=== PATIENT | female | born 1955 | race Caucasian/White ===

== ENCOUNTER 2023-04-24 09:30 | Outpatient (OUT) | payer MEDICARE, SELFPAY | END 2023-04-24 09:31 | disposition home or self-care (01) | LOC: LAB 09:33 | PROVIDERS: Family Provider Optometrist; PCP Family Medicine | DX: N39.0 Urinary tract infection, site not specified (principal) | CPT/HCPCS: 87086 ==

== ENCOUNTER 2023-09-22 14:12 | Outpatient (OUT) | payer MEDICARE, SELFPAY | END 2023-09-22 14:13 | disposition home or self-care (01) | LOC: LAB 14:17 | PROVIDERS: Family Provider Optometrist; PCP Family Medicine | DX: N39.0 Urinary tract infection, site not specified (principal) | CPT/HCPCS: 87086; 87150; 87186 ==

== ENCOUNTER 2023-10-26 09:43 | Outpatient (OUT) | payer MEDICARE, SELFPAY ==
--- OUTSIDE RECORDS SUMMARY | 2023-10-26 09:57 | XMS_ITS | CCD ---
Author Organization [facility] Care Team Providers Care Building Construction Estimator Name Role Phone GloriaZackYuridia Attending Provider ANDRES SIMMS Primary Care Physician Marie Galvan Unavailable Calderon Ortiz Unavailable NILESH, DR GEE Barnard Admitting Unavailabl e SIMMS ., DR ANDRES Dennis Primary Care Unavailable NILESH, DR GEE Barnard Attending Unavailabl e ZIEBJORGE, DR MIHAI Izaguirre Consulting Unavailable GRECHNY .SANKET Consulting Unavailabl e SIMMS ., DR ANDRES Dennis Admitting Unavailable SIMMS ., DR ANDRES Dennis Attending Unavailable SIMMS ., DR ANDRES Dennis Consulting Unavailable SIMMS ., DR ANDRES Dennis Primary Care Unavailable SIMMS ., DR ANDRES Dennis Primary Care Unavailable ZIEBER, DR MIHAI Izaguirre Consulting Unavailable ROMMEL ., GARETT Badillo Admitting Unavailable ROMMEL ., GARETT Badillo Attending Unavailable ROMMEL ., GARETT Badillo Consulting Unavailable ABEL, DR GAEL Vance Consulting Unavailabl e SIMMS ., DR ANDRES Dennis Admitting Unavailable SIMMS ., DR ANDRES Dennis Attending Unavailable SIMMS ., DR ANDRES Dennis Consulting Unavailable SIMMS ., DR ANDRES Dennis Primary Care Unavailable SIMMS ., DR ANDRES Dennis Admitting Unavailable SIMMS ., DR ANDRES Dennis Attending Unavailable SIMMS ., DR ANDRES Dennis Consulting Unavailable SIMMS ., DR ANDRES Dennis Primary Care Unavailable MISC, DR JEREZ Admitting Unavailable SIMMS ., DR ANDRES Dennis Primary Care Unavailable MISC, DR JEREZ Attending Unavailable MISC, DR JEREZ Consulting Unavailable SIMMS ., DR ANDRES Dennis Admitting Unavailable SIMMS ., DR ANDRES Dennis Attending Unavailable SIMMS ., DR ANDRES Dennis Consulting Unavailable SIMMS ., DR ANDRES Dennis Primary Care Unavailable Kalie French Unavailable Jarred Rendon Unavailable MERT Cortes Attending Provider [phone] Mary Cortes Unavailable NO FAMILY, PHYSICIAN Primary Care Provider Unava ilable Nawaf Gonzalez Primary Care Physician [phone] Kianna Blackwell Unavailable Astrid Sky Unavailable NO FAMILY, PHYSICIAN Primary Care Provider Unava ilable MD Lawrence Gaytan Attending Provider MERT Cortes Attending Provider MD Nawaf Gonzalez Primary Care Provider Kalie French Attending Unavailable Kalie French Admitting Unavailable Mary Cortes Admitting Unavailable Nawaf Gonzalez Primary Care Unavailable Mary Cortes Attending Unavailable Lawrence Gaytan Attending Unavailable Lawrence Gaytan Admitting Unavailable NO FAMILY, PHYSICIAN Primary Care Unavailable NO FAMILY, PHYSICIAN Primary Care Unavailable Mary Cortes Attending Unavailable Mary Cortes Admitting Unavailable NO FAMILY, PHYSICIAN Primary Care Unavailable Mary Cortes Attending Unavailable Mary Cortes Admitting Unavailable EBONY French Attending Provider Garett Tillman Referring Unavailable Rinte, Gosia Consulting Unavailable Rommel, Garett L Admitting Unavailable RommelGarett aguilar L Attending Unavailable Junie, Gosia Consulting Unavailable Nawaf Gonzalez Attending Unavailable Garett Tillman Attending Unavailable Nawaf Gonzalez Attending Unavailable Rinkes, Gosia Consulting Unavailable REFERRAL, SELF Admitting Unavailable REFERRAL, SELF Attending Unavailable REFERRAL, SELF Referring Unavailable Rinkes, Gosia Consulting Unavailable SHELLY SPARROW Attending Unavailable SHELLY SPARROW Referring Unavailable SHELLY SPARROW Attending Unavailable SHELLY SPARROW Attending Unavailable AYAN LUJAN Attending Unavailable Allergies Allergy Classification Reported Allergen(s) Allergy Type Date of Onset Reaction(s) Facility (2 sources) NITROFURANTOIN, MACROCRYSTALS / Nitrofurantoin, Monohydrate Drug Allergy Unknown DuraSweeper Other (1 source) Nitrofurantoin Drug Allergy [address] [place] [address] Repository (1 source) Nitrofurantoin; Translations: [Macrobid] Drug Allergy [facility] Repository Medications Current Medications Medication Drug Class(es) Dates Sig (Normalized) Sig (Original) [id number] 200 actuat albuterol 0.09 mg/actuat metered dose inhaler (20 sources) beta2-Adrenergic Agonist Start: 06-25-2023 take 3 mL by inhalation every three hours as needed Albuterol Sulfate Active MG INHALATION June 25, 2023 1:00am FreeTextSi mL as needed Inhalation every 3 hrs; Note: Source Status: Taking; Provider: Astrid Swanson ( ) Start: 06-25-2023 take 2 puff(s) by in halation every four hours as needed Albuterol Sulfate Active 2 PUFF INHALATION Every 4 hours June 25, 2023 1:00am FreeTextSi puff as needed Inhalation every 4 hrs; Note: Source Status: Taking; Provider: Mandy Vance Albuterol Sulfat e (2.5 MG/3ML) 0.083% 3 mL as needed Inhalation every 3 hrs Active take 2 puff(s) by in halation every four hours as needed Albuterol Sulfate HFA 108 (90 Base) MCG/ACT 2 puff as needed Inhalation every 4 hrs Active Albuterol Sulfat e (2.5 MG/3ML) 0.083% 3 mL as needed Inhalation every 3 hrs Active take 2 puff(s) by in halation every four hours as needed Albuterol Sulfate HFA 108 (90 Base) MCG/ACT 2 puff as needed Inhalation every 4 hrs for 30 days Active take 2 puff(s) by in halation every four hours as needed Albuterol Sulfate HFA 108 (90 Base) MCG/ACT 2 puff as needed Inhalation every 4 hrs for 30 days Active Albuterol (Eqv-ProAir HFA) 90 mcg/inh inhalation aerosol (1 source) Start: 09-01-2022 take 2 puff(s) by inhalation every four hours Albuterol (Eqv-ProAir HFA) 90 mcg/inh inhalation aerosol 2 puff(s), Inhalation, q4hr, Refill(s) 0 Start Date: 09/01/22 Status: Ordered azithromycin 250 mg oral tablet (1 source) Macrolide Antimicrobial Start: 01-26-2022 Azithromycin 250 MG 2 tablets on the first day, then 1 tablet daily for 4 days Orally Once a day for 5 day(s) Jan, Active bisoprolol fumarate 5 mg / hydroCHLOROthiazide 6.25 mg oral tablet (4 sources) Thiazide Diuretic, beta-Adrenergic Jose Start: 09-12-2014 Ziac 5 mg-6.25 mg oral tablet Oral, Daily, Refill(s) 0, High blood pressure Start Date: 09/12/14 Status: Ordered take 1 tablet by king th every twenty-four hours Ziac 10-6.25 MG 1 tablet Orally Once a day Active cetirizine hydrochloride 5 mg oral tablet (1 source) Histamine-1 Receptor Antagonist Start: 01-26-2022 take 1 tablet by mouth every twenty-four hours Cetirizine HCl 5 MG 1 tablet Orally Once a day for 30 day(s) Jan, Active ciprofloxacin 500 mg oral tablet (2 sources) Quinolone Antimicrobial Start: 02-18-2023 take 1 tablet by mouth every twelve hours Cipro 500 MG 1 tablet Orally every 12 hrs for 7 days Feb, Active Cranberry Extract (14 sources) Non-Standardized Food Allergenic Extract, Non-Standardized Plant Allergenic Extract Start: 06-25-2023 take 1 capsule by mouth once daily Cranberry Extract (Ellura) 200 mg capsule Active 200 MG PO Daily June 25, 2023 1:00am administer with a meal Start: 09-02-2022 Ellura 1 cap, Daily, Refill(s) 0 Start Date: 09/02/22 Status: Ordered Ellura 200 MG as directed Orally Active hydroCHLOROthiazide 12.5 mg / losartan potassium 100 mg oral tablet (20 sources) Thiazide Diuretic, Angiotensin 2 Receptor Jose Start: 06-25-2023 take 1 tablet by mouth once daily Losartan-Hydrochlorothiazide Active 1 TAB PO Daily June 25, 2023 1:00am FreeTextSi tablet Orally Once a day; Note: Source Status: Taking; Provider: Astrid Swanson ( ) Start: 02-06-2023 take 1 tablet by king th once daily hydrochlorothiazide-losartan 12.5 mg-100 mg oral tablet 1 tab(s), Oral, Daily, 90 tab(s), Refill(s) 1, [facility], 165, cm, 12/01/22 10:14:00 EDT, Height/Length Dosing, 95.6, kg, 12/01/22 10:14:00 EDT, Weight Dosing Start Date: 02/06/23 Status: Ordered Start: 02-04-2023 hydrochlorothi azide-losartan 12.5 mg-50 mg Tab 1 tab(s), Oral, Daily, 90 tab(s), Refill(s) 1, [facility], 165, cm, 12/01/22 10:14:00 EDT, Height/Length Dosing, 95.6, kg, 12/01/22 10:14:00 EDT, Weight Dosing Start Date: 02/04/23 Status: Ordered methylPREDNISolone 4 mg oral tablet (1 source) Corticosteroid Start: 01-26-2022 methylPREDNISolone 4 MG as directed Orally Once a day for 6 days Jan, Active montelukast 10 mg oral tablet (18 sources) Leukotriene Receptor Antagonist Start: 06-25-2023 take 1 tablet by mouth once daily Montelukast Active 1 TAB PO Daily June 25, 2023 1:00am FreeTextSi tablet Orally Once a day; Note: Source Status: Taking; Provider: Astrid Swanson ( ) Start: 02-04-2023 take 1 tablet by king th once daily in the evening montelukast 10 mg Tab 10 mg = 1 tab(s), Oral, qPM, # 90 tab(s), Refills(s) 1, Pharmacy: [facility], 165, cm, 12/01/22 10:14:00 EDT, Height/Length Dosing, 95.6, kg, 12/01/22 10:14:00 EDT, Weight Dosing Start Date: 02/04/23 Status: Ordered Multivitamin preparation (15 sources) Multivitamin Act vipul Multivitamins and Minerals (2 sources) Start: 5 Multivitamins and Minerals See Instructions, Oral, Daily, Refill(s) 0, Prophylaxis Start Date: 09/08/14 Status: Ordered pantoprazole 40 mg delayed release oral tablet (20 sources) Proton Pump Inhibitor Start: 4 take 1 tablet by mouth once daily Pantoprazole (Protonix) 40 mg tablet,delayed release (DR/EC) Active 1 TAB PO Daily June 25, 2023 1:00am FreeTextSi tablet Orally Once a day; Note: Source Status: Refill; Refills: 3; Qty: 90 Tablet; Provider: Astrid Vance Start: 12-01-2022 take 40 mg by mouth once daily Protonix 40 mg, Oral, Daily, Refills(s) 0 Start Date: 12/01/22 Status: Ordered Start: 08-30-2021 take 1 tablet by king th every twenty-four hours Pantoprazole Sodium 40 MG 1 tablet Orally Once a day August, Active predniSONE 20 mg oral tablet (13 sources) Start: 06-25-2023 take 3 tablets by mouth once daily at mealtime, then take 2 tablets by mouth once daily, then take 1 tablet by mouth once daily Prednisone Active MG PO June 25, 2023 1:00am FreeTextSig: as directed with food Orally 3 tablets qday x 3 days, 2 tablets qday x 3 days, 1 tablet qday x3 days; Note: Source Status: Not-Taking\PRN; Refills: 0; Qty: 18 Tablet; Provider: Rosalva Vance Start: 04-17-2023 prednisone 20 MG as directed with food Orally 3 tablets qday x 3 days, 2 tablets qday x 3 days, 1 tablet qday x3 days for 9 days Mar, Not-Taking/PRN Start: 10-05-2022 predniSONE 20 MG Take 3 tabs daily x 3 days, then take 2 tabs daily x 3 days, then take 1 tab daily x 3 days. Orally Once a day for 9 days Sep, Not-Taking raloxifene hydrochloride 60 mg oral tablet (19 sources) Estrogen Agonist/Antagonist Start: 06-25-2023 take 1 mg by mouth once daily Raloxifene Active MG PO Daily June 25, 2023 1:00am FreeTextSig: Orally Once a day; Note: Source Status: Taking; Provider: Astrid Swanson ( ) Start: 09-08-2014 take 1 tablet by king th once daily Evista 60 mg Tab 60 mg = 1 tab(s), Oral, Daily, Refills(s) 0, Other (see comment) Start Date: 09/08/14 Status: Ordered sulfamethoxazole 800 mg / trimethoprim 160 mg oral tablet (1 source) Dihydrofolate Reductase Inhibitor Antibacterial, Sulfonamide Antimicrobial Start: 08-20-2023 take 1 tablet by mouth every twelve hours Sulfamethoxazole-Trimethoprim Active 1 TAB PO Every 12 hours 14 August 20, 2023 12:00am Completed/Discontinued Medications Medication Drug Class(es) Dates Sig (Normalized) Sig (Original) cephalexin 500 mg oral capsule (2 sources) Cephalosporin Antibacterial Start: 07-30-2023 End: 08-20-2023 take 500 mg by mouth twice daily Cephalexin Discontinued 500 MG PO Twice daily 31 10July 30, 2023 12:00am August 20, 2023 2:22pm nitrofurantoin, macrocrystals 25 mg / nitrofurantoin, monohydrate 75 mg oral capsule (11 sources) Nitrofuran Antibacterial Start: 02-11-2023 take 1 capsule by mouth every twelve hours Macrobid 100 MG 1 cap(s) Orally bid for 5 day(s) Jan, Not-Taking Start: 11-01-2022 take 1 capsule by mo uth every twelve hours Macrobid 100 MG 1 capsule with food Orally every 12 hrs for 7 day(s) Oct, Not-Taking Problems Active Problems Problem Classification Problem Date Documented Date Episodic/Chronic Asthma (20 sources) Exacerbation of moderate persistent asthma; Translations: [Moderate persistent asthma with (acute) exacerbation] Onset: 2 Chronic Diabetes mellitus without complication (1 source) Hyperglycemia, unspecified; Translations: [HYPERGLYCEMIA UNSPECIFIED] Onset: 3 Episodic Disorders of lipid metabolism (1 source) Pure hypercholesterolemia, unspecified; Translations: [PURE HYPERCHOLESTEROLEMIA UNSPEC] Onset: 2 Chronic Esophageal disorders (20 sources) Terminal esophageal web; Translations: [Esophageal obstruction] Onset: 2 Chronic Essential hypertension (6 sources) Essential (primary) hypertension; Translations: [Hypertensive disorder] Onset: 2 Chronic Genitourinary symptoms and ill-defined conditions (11 sources) Unspecified symptoms and signs involving the genitourinary system; Translations: [Dysuria] Onset: 2 Episodic Malaise and fatigue (4 sources) Other fatigue; Translations: [OTHER FATIGUE] Onset: 3 Episodic Other non-traumatic joint disorders (4 sources) Pain in right shoulder; Translations: [Acute pain of right shoulder] 06-24-2023 Episodic Other nutritional; endocrine; and metabolic disorders (2 sources) Obesity 09-12-2014 Chronic Other screening for suspected conditions (not mental disorders or infectious disease) (2 sources) Mammography abnormal; Translations: [Encounter for screening, unspecified] 02-18-2023 Episodic Superficial injury; contusion (4 sources) Contusion of right shoulder; Translations: [Contusion of right shoulder, initial encounter] 06-25-2023 Episodic Unclassified (1 source) CONTACT W/AND (SUSP) EXPOS COVID-19; Translations: [CONTACT W/AND (SUSP) EXPOS COVID-19] Onset: 2 Unclassified (1 source) Pain in right shoulder; Translations: [Pain in right shoulder] Onset: 4 Urinary tract infections (12 sources) Urinary tract infection, site not specified; Translations: [Acute cystitis with hematuria] Onset: 2 Episodic Past or Other Problems Problem Classification Problem Date Documented Da te Episodic/Chronic Other aftercare (1 source) Other buttermaker helper (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 therapy; Translations: [OTH CARD SELLER CURRENT DRUG THERAPY] Onset: 12-30-2021 Episodic Other lower respiratory disease (4 sources) Shortness of breath; Translations: [SHORTNESS OF BREATH] Onset: 12-26-2021 Episodic Other upper respiratory infections (1 source) Acute upper respiratory infection, unspecified; Translations: [ACUTE UP RESPIRATORY INFECTION UNS] Onset: 12-30-2021 Episodic Results Test Name Value Interpretation Reference Range Facil ity Consultation Noteon 10-06-19 24 Consultation Note [id number] Normal [facility] Laboratory - Chemistry and C hemistry - challengeon 08-20-2023 Bilirubin Ql (U) Negative [facility] Glucose (U) [Mass/Vol] Negative [facility] Ketones Ql (U) Negative [facility] pH (U) 7.0 [pH] [facility] Specific gravity (U) [Rel density] 1.025 [facility] Urobilinogen (U) [Mass/Vol] 0.2 mg/dL [facility] Laboratory - Specimen inform ationon 08-20-2023 Appearance (U) cloudy [facility] Color (U) yellow [facility] Laboratory - Urinalysison Leukocyte esterase Test strip Ql (U) moderate [facility] Nitrite Ql (U) Positive [facility] Protein Ql (U) trace [facility] No Panel Informationon 08-19 Urine Occult Blood [facility] Urine Cultureon 08-20-2023 Bacteria identified Cx Nom (U) ORGANISM: Escherichia coli (O:ESCCOL) [place] Count >100,000 Aerobic NINO Charge (NMIC56) SUSCEPTIBILITY ORGANISM: O:ESCCOL ANTIBIOTIC INTERPRETATION NINO Amikacin S <16 Amoxacillin/K Clavulanate S <8 Ampicillin S <8 Ampicillin/Sulbactam S <4 Aztreonam S <4 Cefazolin S <2 Cefepime S <2 Ceftazidime S <1 Ceftazidime/Avibactam S <4 Ceftolozane/Tazobactam S <2 Ceftriaxone S <1 Cefuroxime S <4 Ciprofloxacin S <0.25 Ertapenem S <0.5 Gentamicin S <2 Levofloxacin S <0.5 Meropenem S <1 Meropenem/Vaborbactam S <2 Nitrofurantoin S <32 Piperacillin/Tazobactam S <8 Tetracycline S <4 Tigecycline S <2 Tobramycin S <2 Trimethoprim/Sulfamethoxaz ole S <0.5 S = SUSCEPTIBLE I = INTERMEDIATE R = RESISTANT BLANK = DATA NOT AVAILABLE, OR DRUG NOT ADVISABLE OR TESTED R* = RESISTANCE DUE TO EXTENDED SPECTRUM BETA-LACTAMASES ESBL = EXTENDED SPECTRUM BETA-LACTAMASE TFG = THYMIDINE-DEPENDENT STRAIN KEVIN = BETA-LACTAMASE POSITIVE IB = INDUCIBLE BETA-LACTAMASE. APPEARS IN PLACE OF 'S' WITH SPECIES KNOWN TO POSSESS INDUCIBLE BETA-LACTAMASES. POTENTIALLY THEY MAY BECOME RESISTANT TO ALL B-LACTAM DRUGS. PERFORMED BY: [facility] [address] [place] [address] PATHOLOGIST IMAGING CLERK YADIEL Ojeda [facility] Comment on above: Performed By: #### CUU #### [facility] [address] Laboratory - Chemistry and C hemistry - challengeon 07-30-2023 Bilirubin Ql (U) Negative [facility] Glucose (U) [Mass/Vol] Negative [facility] Ketones Ql (U) Negative [facility] pH (U) 6.5 [pH] [facility] Specific gravity (U) [Rel density] 1.010 [facility] Urobilinogen (U) [Mass/Vol] 0.2 mg/dL [facility] Laboratory - Specimen inform ationon 07-30-2023 Appearance (U) clear [facility] Color (U) yellow [facility] Laboratory - Urinalysison Leukocyte esterase Test strip Ql (U) small [facility] Nitrite Ql (U) Positive [facility] Protein Ql (U) Negative [facility] No Panel Informationon 07-29 Urine Occult Blood large [facility] Urine Cultureon 07-30-2023 Bacteria identified Cx Nom (U) ORGANISM: Escherichia coli (O:ESCCOL) [place] Count >100,000 Aerobic NINO Charge (NMIC56) SUSCEPTIBILITY ORGANISM: O:ESCCOL ANTIBIOTIC INTERPRETATION NINO Amikacin S <16 Amoxacillin/K Clavulanate S <8 Ampicillin S <8 Ampicillin/Sulbactam S <4 Aztreonam S <4 Cefazolin S <2 Cefepime S <2 Ceftazidime S <1 Ceftazidime/Avibactam S <4 Ceftolozane/Tazobactam S <2 Ceftriaxone S <1 Cefuroxime S 8 Ciprofloxacin S <0.25 Ertapenem S <0.5 Gentamicin S <2 Levofloxacin S <0.5 Meropenem S <1 Meropenem/Vaborbactam S <2 Nitrofurantoin S <32 Piperacillin/Tazobactam S <8 Tetracycline S <4 Tigecycline S <2 Tobramycin S <2 Trimethoprim/Sulfamethoxaz ole S <0.5 S = SUSCEPTIBLE I = INTERMEDIATE R = RESISTANT BLANK = DATA NOT AVAILABLE, OR DRUG NOT ADVISABLE OR TESTED R* = RESISTANCE DUE TO EXTENDED SPECTRUM BETA-LACTAMASES ESBL = EXTENDED SPECTRUM BETA-LACTAMASE TFG = THYMIDINE-DEPENDENT STRAIN KEVIN = BETA-LACTAMASE POSITIVE IB = INDUCIBLE BETA-LACTAMASE. APPEARS IN PLACE OF 'S' WITH SPECIES KNOWN TO POSSESS INDUCIBLE BETA-LACTAMASES. POTENTIALLY THEY MAY BECOME RESISTANT TO ALL B-LACTAM DRUGS. PERFORMED BY: [place] [address] PATHOLOGIST IMAGING CLERK YADIEL STYLES M.D. Normal [facility] Comment on above: Performed By: #### CUU #### [address] Urine culture routineOrdered By: Mary Cortes on 07-30-2023 Bacteria identified Cx Nom (U) Escherichia coli [facility] XR shoulder RT min 2V*on XR shoulder RT min 2V* [facility] [place] [address] XRay Report Signed Patient: Kimberley Denise MR#: [id number] : 1955 Acct:[id number] Age/Sex: 68 / F ADM Date: 06/25/23 Loc: [facility] [place] Room: Type: [facility] Attending Dr: Lawrence Gaytan MD Copies to: Lawrence Gaytan MD Ordering Provider: Lawrence Gaytan MD Date of Service: 06/25/23 XR/XR shoulder RT min 2V*: M25.511 - Pain in right shoulder 4 views RIGHT shoulder plain film HISTORY: RIGHT shoulder pain for 2 weeks COMPARISON: None ACUTE FINDINGS: None DEGENERATIVE CHANGE: Unremarkable SOFT TISSUE FINDINGS: Unremarkable JOINT EFFUSION: None POSTOP CHANGES: None BONY MINERALIZATION: Adequate XR/XR shoulder RT min 2V* IMPRESSION: Unremarkable exam Impression dictated by: Wally Moore M.D.06/25/2023 3:00 PM Dictation Location: [place] [address] Transcribed By: [facility] 06/25/23 1500 Dictated By: Wally Moore DO 06/25/23 1459 Signed By: 06/25/23 1500 Normal [facility] Consultation Noteon 04-22-19 Consultation Note [id number] Normal [facility] Consultation Noteon 04-08-20 Consultation Note [id number]#[id number] Normal [facility] Pre-Visit Planningon 023 Pre-Visit Planning From: Ailin NAVARRETE, Nataly To: Garett Elizondo; Sent: 02/26/2023 10:05:45 EST Subject: Pre-Visit Planning Due Date/Time: 02/26/2023 10:05:00 EST Caller Name: KIMBERLEY DENISE; Caller Number: Karen , M Tawanda Solis, *Based on your response below, can you please update the chronic problem list and address during this visit if appropriate?* During a pre-visit planning chart review, I noted the following documentation in the medical record indicates that this patient had a BMI of 35.11 on 12/01/2022. The National [place] of [employer] defines obesity as morbid if the patient demonstrates a BMI of over 40, or a BMI of 35 or more and at least one weight-related comorbid condition, such as diabetes or hypertension. Examples of weight-related comorbidities include diabetes, heart disease, stroke, hypertension, and arthritis. Current problem list: Hypertension Based on your medical judgment, can you further clarify the following diagnosis that correlates with the BMI listed above if the current BMI is still 35 or over? - Morbid obesity (please also include additional diagnosis to reflect current BMI) - Class 3 severe obesity with serious comorbidity in adult (please also include additional diagnosis to reflect current BMI) - Other (please specify): I can update the problem list with your specified response if you would like. In responding to this request, please exercise your independent professional judgment. The fact that a question is asked does not imply that any particular answer is desired or expected. If you have any questions, please feel free to contact me at extension [phone]. Thank you! RYLIE Sosa, RN, CCM, CCDS, CCDS-O From: Garett Elizondo To: Ailin NAVARRETE, Nataly; Sent: 03/04/2023 13:21:25 EST Subject: RE: Pre-Visit Planning Caller Name: KIMBERLEY DENISE; Caller Number: Karen , Rajiv class 3 obesity with hypertension Normal [address] [facility] Ambulatory Visit Summaryon 1 05-02-2022 Ambulatory Visit Summary KIMBERLEY DENISE :1955 Visit Date:03/02/2023 Ambulatory Visit Instructions Your Diagnosis Screening for hyperlipidemia Fatigue BMI 34.0-34.9,adult Non-smoker Your Care Team Attending Physician - Garett Elizondo Primary Care Physician - Nawaf Gonzalez MD This Is Your Medications List albuterol (Albuterol (Eqv-ProAir HFA) 90 mcg/inh inhalation aerosol) cranberry (Ellura) hydrochlorothiazide-losart an (hydrochlorothiazide-losar abdullahi 12.5 mg-100 mg oral tablet) montelukast (montelukast 10 mg Tab) multivitamin with minerals (Multivitamins and Minerals) pantoprazole (Protonix) raloxifene (Evista 60 mg Tab) Procedures Performed EGD - Esophagogastroduodenoscopy (2021), Colonoscopy (2014), Cholecystectomy (03/2009). Discharge Vitals Heart Rate (Peripheral) 82 Respiratory Rate 18 Blood Pressure 136/88 Height 165 cm Height 65 in Weight 94.1 kg Weight 207.02 lb BMI 34.56 What to do next Scheduled Follow-Up Appointments 2023 9:30 AM EDT Where: [facility] Invalid Interpretation Code Fatigue, Print Label By Order Location\.br\ Thyroid Stimulating Hormone, Blood, Routine collect, 03/02/23, Order for future visit, Lab Collect, Screening for hyperlipidemia [facility] Medicine Office/Clini c Noteon 03-02-2023 [facility] Medicine Office/Clinic Note HPI Staff Kimberley is a 67 year old female presenting for 6 month follow up Patient is here for follow up on hypertension. How often are you checking your blood pressure? 1-2 every 2 weeks What are your average readings? 130's/ 70s-80s Concerns: Pt states she has a small pea size hemorrhoid she states looked at it and there is purple around it. Denies pain but it is bothersome. needs refill on Montelukast and hydrochlorothiazide-losart an pt believes she is due labs. She had CBC, A1c on 07/02/22 History of Present Illness pt presents today with c/o hemorrhoid Review of Systems PHQ Score Initial Depression Screen Score: 0 SCORE ROS - Provider Constitutional: no fever, no chills, no sweats, no fatigue Respiratory: no shortness of breath, no cough, no orthopnea, no wheezing. Cardiovascular: no chest pain, no palpitations, no edema. Neurologic: no headache, no dizziness, no numbness, no weakness. Physical Exam Vitals & Measurements HR: 82(Peripheral) RR: 18 BP: 136/88 SpO2: 98% HT: 65 in HT: 165 cm WT: 94.1 kg WT: 207.02 lb BMI: 34.56 General: alert, no acute distress ENMT: oral mucosa moist, no pharyngeal erythema or exudate Cardiovascular: regular rate and rhythm, normal peripheral perfusion Respiratory: Lungs CTA, respirations non labored Extremities: no deformity, no trauma Neurological: oriented x 4, LOC appropriate for age, CN II-XII intact, motor strength equal & normal bilaterally, speech normal Assessment/Plan 1. Hemorrhoid (K64.9: Unspecified hemorrhoids) pt presents today with c/o hemorrhoid and bruising around it. pt does have a pea sized hemorrhoid in right side of her rectal opening. below the hemorrhoid is a bruise. pt denies squeezing the area. Dr. Gonzalez was asked to also look at it. no concern of thrombosed hemorrhoid. will treat will proctofoam. if it worsens will refer to general surgery. all questions answered. RTC as needed 2. BMI 34.0-34.9,adult (Z68.34: Body mass index [BMI] 34.0-34.9, adult) BMI education complete Ordered: hydrocortisone-pramoxine topical, 1 deny, Rectal, QID, 10 gram, Refill(s) 0, [facility], 165, cm, 03/02/23 10:05:00 EST, Height/Length Dosing, 94.1, kg, 03/02/23 10:05:00 EST, Weight Dosing 3. Non-smoker (Z78.9: Other specified health status) continue not smoking Ordered: hydrocortisone-pramoxine topical, 1 deny, Rectal, QID, 10 gram, Refill(s) 0, [facility], 165, cm, 03/02/23 10:05:00 EST, Height/Length Dosing, 94.1, kg, 03/02/23 10:05:00 EST, Weight Dosing Orders: hydrochlorothiazide-losart an, 1 tab(s), Oral, Daily, 90 tab(s), Refill(s) 1, [facility], 165, cm, 12/01/22 10:14:00 EDT, Height/Length Dosing, 95.6, kg, 12/01/22 10:14:00 EDT, Weight Dosing hydrochlorothiazide-losart an, 1 tab(s), Oral, Daily for 90 day(s), 90 tab(s), Refill(s) 3, [facility], 165, cm, 03/02/23 10:05:00 EST, Height/Length Dosing, 94.1, kg, 03/02/23 10:05:00 EST, Weight Dosing hydrochlorothiazide-losart an, 1 tab(s), Oral, Daily, 90 tab(s), Refill(s) 1, [facility], 165, cm, 12/01/22 10:14:00 EDT, Height/Length Dosing, 95.6, kg, 12/01/22 10:14:00 EDT, Weight Dosing montelukast, 10 mg = 1 tab(s), Oral, qPM, # 90 tab(s), Refills(s) 1, Pharmacy: [facility], 165, cm, 12/01/22 10:14:00 EDT, Height/Length Dosing, 95.6, kg, 12/01/22 10:14:00 EDT, Weight Dosing montelukast, 10 mg = 1 tab(s), Oral, qPM, X 90 day(s), # 90 tab(s), Refills(s) 3, Pharmacy: [facility], 165, cm, 03/02/23 10:05:00 EST, Height/Length Dosing, 94.1, kg, 03/02/23 10:05:00 EST, Weight Dosing Follow-up No qualifying data available Problem List/Past Medical History Ongoing Abnormality of left breast on screening mammogram Chronic GERD Fatigue Hemorrhoid History of recurrent UTIs HTN (hypertension) Moderate persistent asthma Obesity Schatzki's ring Screening for hyperlipidemia Historical Asthma GERD - Gastro-esophageal reflux disease HTN - Hypertension Schatzki's ring Procedure/Surgical History EGD - Esophagogastroduodenoscopy (2021), Colonoscopy (2014), Cholecystectomy (03/2009). Medications Albuterol (Eqv-ProAir HFA) 90 mcg/inh inhalation aerosol, 2 puff(s), Inhalation, q4hr Ellura, 1 cap, Daily Evista 60 mg Tab, 60 mg= 1 tab(s), Oral, Daily hydrochlorothiazide-losart an 12.5 mg-100 mg oral tablet, 1 tab(s), Oral, Daily, 3 refills montelukast 10 mg Tab, 10 mg= 1 tab(s), Oral, qPM, 3 refills Multivitamins and Minerals, See Instructions, Oral, Daily Proctofoam HC rectal foam, 1 deny, Rectal, QID Protonix, 40 mg, Oral, Daily Allergies Macrobid (Burning pain, Hives) Social History Alcohol Wine, 1-2 times per year, 1 drinks/episode average. Household alcohol concerns: No., 12/01/2022 Substance Abuse - Denies Substance Abuse, 09/01/2022 Household substance abuse concerns: No., 09/02/2022 Tobacco - Denies Tobacco Use, 09/01/2022 Never (less than 100 in lifeti (more content not included)... [facility] Comment on above: Result Comment: Electronically Signed By : Garett Elizondo\.br\Date and Time Signed: 03/02/23 12:55 EST Consent for Treatmenton Consent for Treatment [id number] [facility] MA Mamm Diag w/CAD if perf a nd 3D LTon 02-25-2023 MA Mamm Diag w/CAD if perf and 3D LT Exam Date/Time: 02/25/2023 10:15 EST Reason for Exam: R92.8;Abnormal mammogram Report IMPRESSION: BIRADS 2 BENIGN FINDINGS, NORMAL INTERVAL FOLLOW-UP.12 MONTH RECALL. CLINICAL HISTORY: Abnormal mammogram, R92.8. COMPARISON: 02/17/2023. COMMENT: ML and spot compression CC and ML views and tomosynthesis views of the left breast were obtained. The left breast is heterogeneously dense, which may obscure small masses. The asymmetric density in the posterior superior left breast is again visualized, and appears to partially spread out on the spot compression ML views. No corresponding finding is evident on the spot compression CC views. The examination was reviewed with Computer Aided Detection. An ultrasound was obtained at all clock face positions and in the central/ retroareolar region of the left breast. At 3:00, there is a cyst cluster that measures 5 x 3 x 2 mm. The ultrasound examination of the left breast is otherwise unremarkable. No suspicious lesion is evident. Breast Density: Yes Mammography is very important to your health. The current [employer] and National Comprehensive Cancer Network guidelines recommends annual mammography beginning at age 40. This facility utilizes a reminder system to ensure all patients receive reminder notifications at the appropriate time based on the recommendations of this exam. Board Certified Radiologists. Accredited by the ACR and FDA. Ordering Provider: Garett Tillman FINAL REPORT Dictated: 02/25/2023 4:01 pm Jacek Grier M.D. Signed (Electronic Signature): 02/25/2023 4:01 pm Signed by: Jacek Grier M.D. Transcribed by: MIKAL Technologist: [facility] Assessment: BI-RADS Category 2-Benign finding Recommendation: Normal interval follow-up [facility] US Breast Unilateral Lt Comp leteon 02-25-2023 US Breast Unilateral Lt Complete Exam Date/Time: 02/25/2023 10:41 EST Reason for Exam: R92.8;Abnormal mammogram Report PLEASE REFER TO THE MAMMOGRAM REPORT. Ordering Provider: Garett Tillman FINAL REPORT Dictated: 02/25/2023 4:02 pm Jacek Grier M.D. Signed (Electronic Signature): 02/25/2023 4:02 pm Signed by: Jacek Grier M.D. Transcribed by: MIKAL Technologist: [facility] Physician Orderon 02-24-2023 Physician Order [id number]#[id number] [facility] Physician Order [id number]#[id number] [facility] [place] Mamm Screen w/CAD if perf and 3D Bilon 02-18-2023 [place] Mamm Screen w/CAD if perf and 3D Syed Exam Date/Time: 02/17/2023 12:06 EDT Reason for Exam: SCREENING Report IMPRESSION: BIRADS 0 - INCOMPLETE, NEED ADDITIONAL IMAGING EVALUATION.RECALL NOW. DIAGNOSTIC LEFT MAMMOGRAM WITH SPOT COMPRESSION CC AND ML VIEWS AND ULTRASOUND OF THE LEFT BREAST ARE RECOMMENDED FOR FURTHER EVALUATION. CLINICAL HISTORY: SCREENING. COMPARISON: 02/11/2022. COMMENT: Routine views and tomosynthesis views of both breasts were obtained. The breasts are heterogeneously dense, which may obscure small masses. On left MLO views, there is an area of asymmetric density in the posterior superior left breast, without corresponding finding evident on CC views. Further evaluation is suggested. The right breast is unremarkable in appearance. No neoplastic calcifications are noted in either breast. The examination was reviewed with Computer Aided Detection. Breast Density: Yes Mammography is very important to your health. The current [employer] and National Comprehensive Cancer Network guidelines recommends annual mammography beginning at age 40. This facility utilizes a reminder system to ensure all patients receive reminder notifications at the appropriate time based on the recommendations of this exam. Board Certified Radiologists. Accredited by the ACR and FDA. Ordering Provider: REFERRAL, SELF FINAL REPORT Dictated: 02/18/2023 10:36 am Jacek Grier M.D. Signed (Electronic Signature): 02/18/2023 10:36 am Signed by: Jacek Grier M.D. Transcribed by: MIKAL Technologist: [facility] Assessment: BI-RADS Category 0-Incomplete: Need additional imaging evaluation Recommendation: Additional projections [facility] Urinalysis - AUTOMATEDon Appearance (U) cloudy [employer] Other Bilirubin Ql (U) Negative Fantasy [employer]er Other Color (U) orange [employer] Other Glucose Ql (U) 100 [employer] Other Hemoglobin Ql (U) large [employer] Other Ketones Ql (U) Negative [employer] Other Leukocyte esterase Test strip Ql (U) large [employer] Other Nitrite Ql (U) Positive [employer] Other pH (U) 6.0 [pH] [employer] Other Protein Ql (U) 100 [employer] Other Specific gravity (U) [Rel density] 1.020 [employer] Other Urobilinogen (U) [Mass/Vol] 1.0 mg/dL [employer] Other Urinalysis - AUTOMATED [employer] Other Urine Cultureon 02-18-2023 Bacteria identified Cx Nom (U) Reason for Exam Dysuria Urine Reason for Exam: Dysuria : Urine ORGANISM: Escherichia coli (O:ESCCOL) [place] Count >100,000 Aerobic NINO Charge (NMIC56) SUSCEPTIBILITY ORGANISM: O:ESCCOL ANTIBIOTIC INTERPRETATION NINO Amikacin S <16 Amoxacillin/K Clavulanate S <8 Ampicillin S <8 Ampicillin/Sulbactam S <4 Aztreonam S <4 Cefazolin S <2 Cefepime S <2 Ceftazidime S <1 Ceftazidime/Avibactam S <4 Ceftolozane/Tazobactam S <2 Ceftriaxone S <1 Cefuroxime S <4 Ciprofloxacin S <0.25 Ertapenem S <0.5 Gentamicin S <2 Levofloxacin S <0.5 Meropenem S <1 Meropenem/Vaborbactam S <2 Nitrofurantoin S <32 Piperacillin/Tazobactam S <8 Tetracycline S <4 Tigecycline S <2 Tobramycin S <2 Trimethoprim/Sulfamethoxaz ole S <0.5 S = SUSCEPTIBLE I = INTERMEDIATE R = RESISTANT BLANK = DATA NOT AVAILABLE, OR DRUG NOT ADVISABLE OR TESTED R* = RESISTANCE DUE TO EXTENDED SPECTRUM BETA-LACTAMASES ESBL = EXTENDED SPECTRUM BETA-LACTAMASE TFG = THYMIDINE-DEPENDENT STRAIN KEVIN = BETA-LACTAMASE POSITIVE IB = INDUCIBLE BETA-LACTAMASE. APPEARS IN PLACE OF 'S' WITH SPECIES KNOWN TO POSSESS INDUCIBLE BETA-LACTAMASES. POTENTIALLY THEY MAY BECOME RESISTANT TO ALL B-LACTAM DRUGS. PERFORMED BY: [place] [address] PATHOLOGIST IMAGING CLERK YADIEL STLYES M.D. [facility] Comment on above: Performed By: #### CUU #### [address] Consent for Treatmenton 01-20 Consent for Treatment [id number] [facility] - Clinical Noteon Retail - Clinical Note [id number]#[id number] [facility] Urinalysis - AUTOMATEDon Appearance (U) cloudy [employer] Other Bilirubin Ql (U) Negative Fantasy Buzzer Other Color (U) yellow [employer] Other Glucose Ql (U) Negative [employer] Other Hemoglobin Ql (U) large [employer] Other Ketones Ql (U) Negative [employer] Other Leukocyte esterase Test strip Ql (U) small [employer] Other Nitrite Ql (U) Positive [employer] Other pH (U) 6.5 [pH] [employer]eper Other Protein Ql (U) 300 [employer] Other Specific gravity (U) [Rel density] 1.025 [employer] Other Urobilinogen (U) [Mass/Vol] 0.2 mg/dL [employer] Other Urinalysis - AUTOMATED [employer] Other Urine Cultureon 02-11-2023 Urine Culture >100,000 [employer] Other Urine Culture <16 Susceptible [employer] Other Urine Culture <8/4 Susceptible [employer] Other Urine Culture >16 Resistant [employer] Other Urine Culture <4 Susceptible [employer] Other Urine Culture <2 Susceptible [employer] Other Urine Culture <1 Susceptible [employer] Other Urine Culture <0.25 Susceptible [employer] Other Urine Culture <0.5 Susceptible [employer] Other Urine Culture <32 Susceptible [employer] Other Urine Culture >8 Resistant [employer]weeper Other Urine Culture <0.5/9.5 Susceptible [employer] Other Bacteria identified Cx Nom (U) Reason for Exam Dysuria Urine ORGANISM: Escherichia coli (O:ESCCOL) [place] Count >100,000 Aerobic NINO Charge (NMIC56) SUSCEPTIBILITY ORGANISM: O:ESCCOL ANTIBIOTIC INTERPRETATION NINO Amikacin S <16 Amoxacillin/K Clavulanate S <8 Ampicillin R >16 Ampicillin/Sulbactam I 1616/8 Aztreonam S <4 Cefazolin S <2 Cefepime S <2 Ceftazidime S <1 Ceftazidime/Avibactam S <4 Ceftolozane/Tazobactam S <2 Ceftriaxone S <1 Cefuroxime S <4 Ciprofloxacin S <0.25 Ertapenem S <0.5 Gentamicin S <2 Levofloxacin S <0.5 Meropenem S <1 Meropenem/Vaborbactam S <2 Nitrofurantoin S <32 Piperacillin/Tazobactam S <8 Tetracycline R >8 Tigecycline S <2 Tobramycin S <2 Trimethoprim/Sulfamethoxaz ole S <0.5 S = SUSCEPTIBLE I = INTERMEDIATE R = RESISTANT BLANK = DATA NOT AVAILABLE, OR DRUG NOT ADVISABLE OR TESTED R* = RESISTANCE DUE TO EXTENDED SPECTRUM BETA-LACTAMASES ESBL = EXTENDED SPECTRUM BETA-LACTAMASE TFG = THYMIDINE-DEPENDENT STRAIN KEVIN = BETA-LACTAMASE POSITIVE IB = INDUCIBLE BETA-LACTAMASE. APPEARS IN PLACE OF 'S' WITH SPECIES KNOWN TO POSSESS INDUCIBLE BETA-LACTAMASES. POTENTIALLY THEY MAY BECOME RESISTANT TO ALL B-LACTAM DRUGS. PERFORMED BY: [place] [address] PATHOLOGIST IMAGING CLERK YADIEL STYLES M.D. [facility] Comment on above: Performed By: #### CUU #### [address] Urine culture routineOrdered By: Mary Cortes on 02-11-2023 Bacteria identified Cx Nom (U) Escherichia coli [facility] Consultation Noteon 02-11-20 Consultation Note [id number]#[id number] [facility] Family Medicine Office/Clini c Noteon 12-02-2022 Family Medicine Office/Clinic Note Chief Complaint Subsequent Medicare Wellness Visit Review of Systems PHQ Score Initial Depression Screen Score: 0 Physical Exam Vitals & Measurements HR: 78(Peripheral) BP: 120/80 SpO2: 95% HT: 165 cm HT: 65 in WT: 95.6 kg WT: 210.32 lb BMI: 35.11 Assessment/Plan 1. Annual visit for general adult medical examination without abnormal findings (Z00.00: Encounter for general adult medical examination without abnormal findings) The patient was given a customized and personalized print out of all the current AHRQ USPSTF?s recommendations for preventative services and all current CDC recommended immunizations, relevant risk recommendations and the following patient brochures were given. Reviewed Medicare preventative services checklist. CDC-Falls Prevention and home safety screening reviewed. Patient denies any falls in last 12 months, voices no worry about falling, exhibits no problems with sitting, standing, or ambulation. Pt voices understanding with keeping walk way area free of clutter to prevent tripping and/or falling. [place] Advance Directives reviewed, patient has copy at home, encouraged to bring copy to office for scanning to chart. Patient denies any problems with ADL?s and Instrumental ADL?s. Cognitive screening completed with memory and clock face drawing, no deficits voiced. Immunization Record reviewed with the patient. Discussed Shingrix vaccine with educational handout and availability. COVID vaccines have been administered, with 2 boosters, immunization record is up to date. Allergies and medications reviewed and up to date. Patient denies concerns with taking medication as prescribed, reviewed OTC medications with patient, medication list up to date. Blood tests were reviewed: are up to date at this time. Colonoscopy up to date, due for repeat 2024. D[facility]A scan [facility] from [facility]. Mammograms are completed through patients [facility] provider, Dr. Zaman Reviewed pain symptoms with patient: no pain present. Reviewed all outside providers that patient follows. Last visit summary notes available in chart and/or have been requested. Follow up scheduled, 03/02/2023 AWV has been scheduled, 12/03/2023 Medicare provides yearly screening for alcohol and depression concerns. This is completed during our Medicare Wellness visit for those who do not have a current diagnosis of depression or concerns with alcohol use. I spent a total of 17 minutes on this date of service which included preparing to see the patient, face to face patient care, completing clinical documentation, obtaining and/or reviewing separately obtained history, counseling and educating the patient with handouts. Explanations were provided with reviewing questionnaires. AUDIT risk assessment screening completed, risk score 1, with patient denying concerns with use. Completed PHQ-2 risk assessment for depression with risk score 0, negative findings. Patient has been reminded to notify the provider if there would be a change or concerns with symptoms with fear, unable to sleep, worrying too much or feeling down and/or sad with lost of interest with daily activities. Will continue to monitor with screening yearly during Medicare wellness visits. 2. Chronic GERD (K21.9: Gastro-esophageal reflux disease without esophagitis) Patient is aware of diet changes with healthier eating habits, such as not eating late at night, losing or maintaining a healthy weight. Importance of not smoking and avoiding and/or reducing alcohol intake. Avoid tight clothing around the waist line and try to avoid spicy or high acid foods. Patient taking Pantoprazole as directed with symptoms managed. Reviewed nutrition therapy with recommended foods to help control your symptoms. 3. HTN (hypertension) (I10: Essential (primary) hypertension) Patient is taking lisinopril-hctz daily as directed. HTN stoplight reviewed with BP goal to be <140/90. Reviewed different factors that can alter blood pressure readings. Education handout provided with signs and symptoms to monitor for and report to provider. Patient is encouraged to increase portions of fruit, vegetables, fiber, and increase exercise as much as tolerable. Reviewed importance with monitoring foods high in salt content and encouraged to limit intake, if unsure encouraged to discuss with their PCP. Encouraged to eat more chicken, fish, and lean white meats and limit red meats in diet. Discussed importance with keeping BP under good control to reduce CVA risk factors. BP in office today was 120/80. Will continue to f/u with PCP during office visits and as needed. 4. History of recurrent UTIs (Z87.440: Personal history of urinary (tract) infections) Patient states last UTI was in October, she was treated with macrobid, last day of treatment 11/09/2022. Urine dipstick was completed in office today. Encouraged patient to stay well hydrated. UTI dietary recommendation handout provided. Patient will follow up as needed with PCP. 5. Moderate persistent a (more content not included)... [facility] Comment on above: Result Comment: Electronically Signed By : Garett Elizondo\.br\Date and Time Signed: 12/02/22 14:10 EDT\.br\Electronically Co-Signed By: Nathen Avendano\.br\Date and Time Co-Signed: 12/01/22 10:48 EDT Patient Educationon 12-02-19 Patient Education Caregiving Fall Prevention in the Home, Adult Falls can cause injuries and affect people of all ages. There are many simple things that you can do to make your home safe and to help prevent falls. Ask for help when making these changes, if needed. What actions can I take to prevent falls? General instructions ? Use good lighting in all rooms. Replace any light bulbs that burn out, turn on lights if it is dark, and use night-lights. ? Place frequently used items in [id number] places. Lower the shelves around your home if necessary. ? Set up furniture so that there are clear paths around it. Avoid moving your furniture around. ? Remove throw rugs and other tripping hazards from the floor. ? Avoid walking on wet floors. ? Fix any uneven floor surfaces. ? Add color or contrast paint or tape to grab bars and handrails in your home. Place contrasting color strips on the first and last steps of staircases. ? When you use a stepladder, make sure that it is completely opened and that the sides and supports are firmly locked. Have someone hold the ladder while you are using it. Do not climb a closed stepladder. ? Know where your pets are when moving through your home. What can I do in the bathroom? ? Keep the floor dry. Immediately clean up any water that is on the floor. ? Remove soap buildup in the tub or shower regularly. ? Use nonskid mats or decals on the floor of the tub or shower. ? Attach bath mats securely with double-sided, nonslip rug tape. ? If you need to sit down while you are in the shower, use a plastic, nonslip stool. ? Install grab bars by the toilet and in the tub and shower. Do not use towel bars as grab bars. What can I do in the bedroom? ? Make sure that a bedside light is easy to reach. ? Do not use oversized bedding that reaches the floor. ? Have a firm chair that has side arms to use for getting dressed. What can I do in the kitchen? ? Clean up any spills right away. ? If you need to reach for something above you, use a sturdy step stool that has a grab bar. ? Keep electrical cables out of the way. ? Do not use floor tanzanian or wax that makes floors slippery. If you must use wax, make sure that it is non-skid floor wax. What can I do with my stairs? ? Do not leave any items on the stairs. ? Make sure that you have a light switch at the top and the bottom of the stairs. Have them installed if you do not have them. ? Make sure that there are handrails on both sides of the stairs. Fix handrails that are broken or loose. Make sure that handrails are as long as the staircases. ? Install non-slip stair treads on all stairs in your home. ? Avoid having throw rugs at the top or bottom of stairs, or secure the rugs with carpet tape to prevent them from moving. ? Choose a carpet design that does not hide the edge of steps on the stairs. ? Check any carpeting to make sure that it is firmly attached to the stairs. Fix any carpet that is loose or worn. What can I do on the outside of my home? ? Use bright outdoor lighting. ? Regularly repair the edges of walkways and driveways and fix any cracks. ? Remove high doorway thresholds. ? Trim any shrubbery on the main path into your home. ? Regularly check that handrails are securely fastened and in good repair. Both sides of all steps should have handrails. ? Install guardrails along the edges of any raised decks or porches. ? Clear walkways of debris and clutter, including tools and rocks. ? Have leaves, snow, and ice cleared regularly. ? Use sand or salt on walkways during winter months. ? In the garage, clean up any spills right away, including grease or oil spills. What other actions can I take? ? Wear closed-toe shoes that fit well and support your feet. Wear shoes that have rubber soles or low heels. ? Use mobility aids as needed, such as canes, walkers, scooters, and crutches. ? Review your medicines with your health care provider. Some medicines can cause dizziness or changes in blood pressure, which increase your risk of falling. Talk with your health care provider about other ways that you can decrease your risk of falls. This may include working with a physical therapist or applications trainer to improve your strength, balance, and endurance. Where to find more information ? Centers for Disease Control and Prevention, [place]: www.cdc.gov ? National [place] on Aging: www.argentina.nih.gov Contact a health care provider if: ? You are afraid of falling at home. ? You feel weak, drowsy, or dizzy at home. ? You fall at home. Summary ? There are many simple things that you can do to make your home safe and to help prevent falls. ? Ways to make your home safe include removing tripping hazards and installing grab bars in the bathroom. ? Ask for help when making these changes in your home. This information is not intended to replace advice given to you by your health ca (more content not included)... Normal [facility] 12-01-2022 Screens [id number] Normal [facility] Urinalysis - AUTOMATEDon Appearance (U) cloudy [employer] Other Bilirubin Ql (U) Negative [employer] Other Color (U) yellow [employer] Other Glucose Ql (U) Negative [employer] Other Hemoglobin Ql (U) Trace-intact [employer] Other Ketones Ql (U) Negative [employer] Other Leukocyte esterase Test strip Ql (U) small [employer] Other Nitrite Ql (U) Negative [employer] Other pH (U) 6.0 [pH] [employer] Other Protein Ql (U) Negative [employer] Other Specific gravity (U) [Rel density] 1.025 [employer] Other Urobilinogen (U) [Mass/Vol] 0.2 mg/dL [employer] Other Urinalysis - AUTOMATED [employer] Other US CAROTID ART BILon 05-17-2 023 US CAROTID ART SYED EXAMINATION: US CAROTID ART SYED HISTORY: Hemorrhage of bilateral retinas COMPARISON: No relevant comparison available. TECHNIQUE: Duplex Doppler ultrasound analysis of carotid and vertebral arteries. . Bilateral carotid arterial duplex examination was performed using B-mode, color flow and spectral analysis. Carotid stenosis is reported according to validated velocity parameters, similar to NASCET criteria. FINDINGS: RIGHT CAROTID ARTERY: Mild plaque within proximal ICA without significant stenosis. RIGHT VERTEBRAL: Antegrade flow. Subclavian: PSV: 130.7 cm/s EDV: 0.0 cm/s CCA: Prox: PSV: 98.3 cm/s EDV: 17.6 cm/s Mid: PSV: 75.7 cm/s EDV: 20.8 cm/s Distal: PSV: 78.9 cm/s EDV: 20.8 cm/s BULB: PSV: 70.9 cm/s EDV: 11.1 cm/s ICA: Prox: PSV: 56.3 cm/s EDV: 16.0 cm/s Mid: PSV: 80.6 cm/s EDV: 25.7 cm/s Distal: PSV: 42.7 cm/s EDV: 12.0 cm/s ECA: PSV: 93.5 cm/s EDV: 16.0 cm/s VERTEBRAL: PSV: 46.1 cm/s EDV: 11.3 cm/s ICA/CCA ratio: PSV: 0.8 EDV: 1.5 LEFT CAROTID ARTERY: Mild plaque within proximal ICA without significant stenosis. LEFT VERTEBRAL: Antegrade flow. Subclavian: PSV: 98.4 cm/s EDV: 0.0 cm/s CCA: Prox: PSV: 64.4 cm/s EDV: 20.8 cm/s Mid: PSV: 74.1 cm/s EDV: 22.4 cm/s Distal: PSV: 53.1 cm/s EDV: 17.6 cm/s BULB: PSV: 28.5 cm/s EDV: 8.7 cm/s ICA: Prox: PSV: 52.6 cm/s EDV: 14.2 cm/s Mid: PSV: 63.6 cm/s EDV: 25.2 cm/s Distal: PSV: 80.1 cm/s EDV: 27.3 cm/s ECA: PSV: 71.3 cm/s EDV: 9.8 cm/s VERTEBRAL: PSV: 48.2 cm/s EDV: 15.3 cm/s ICA/CCA ratio: PSV: 1.1 EDV: 1.2 IMPRESSION: 1. Mild atherosclerotic disease. No significant stenosis. 2. 0-49% flow stenosis within the right left carotid arteries. Electronically authenticated by: MIHAI MAI Date: 2022-09-03 14:32 Normal [facility] CBC AUTO DIFFon 07-02-2022 BASO # 0.0 103/ul Normal 0.0-0.1 [facility] Comment on above: Performed By: #### CMP, HSTROPN, BNP ### # [facility] [address] [address] [address] Ivett Scott Basophils/100 WBC (Bld) 0.6 % Normal 0.2-2.0 [facility] Comment on above: Performed By: #### CMP, HSTROPN, BNP ### # [facility] [address] [address] [address] Ivett Scott EO # 0.3 103/ul Normal 0.0-0.7 [facility] Comment on above: Performed By: #### CMP, HSTROPN, BNP ### # [facility] [address] [place] [address] Dr. Ivett Scott Eosinophils/100 WBC (Bld) 4.1 % Normal 0.9-7.0 [facility] Comment on above: Performed By: #### CMP, HSTROPN, BNP ### # [facility] [address] [place] [address] Dr. Ivett Scott Erythrocyte distribution width (RBC) [Ratio] 13.1 % Normal 11.0-15.0 [facility] Comment on above: Performed By: #### CMP, HSTROPN, BNP ### # [facility] [address] [place] [address] Dr. Ivett Scott Hematocrit (Bld) [Volume fraction] 40.9 % Normal 36.0-48.0 [facility] Comment on above: Performed By: #### CMP, HSTROPN, BNP ### # [facility] [address] [place] [address] Dr. Ivett Scott Hemoglobin (Bld) [Mass/Vol] 13.4 g/dL Normal 12.0-16.0 [facility] Comment on above: Performed By: #### CMP, HSTROPN, BNP ### # [facility] [address] [place] [address] Dr. Ivett Scott IG # 0.02 10e3/ul Normal 0.00-0.03 [facility] Comment on above: Performed By: #### CMP, HSTROPN, BNP ### # [facility] [address] [place] [address] Dr. Ivett Scott IG % 0.3 % Normal 0.0-0.5 [facility] Comment on above: Performed By: #### CMP, HSTROPN, BNP ### # [facility] [address] [place] [address] Dr. Ivett Scott LYMPH # 2.0 103/ul Normal 1.2-3.8 [facility] Comment on above: Performed By: #### CMP, HSTROPN, BNP ### # [facility] [address] [address] [address] Ivett Scott Lymphocytes/100 WBC (Bld) 31.6 % Normal 20.5-60.0 [facility] Comment on above: Performed By: #### CMP, HSTROPN, BNP ### # [facility] [address] [address] [address] Ivett Scott MANUAL DIFF REQ NO Normal [facility] Comment on above: Performed By: #### CMP, HSTROPN, BNP ### # [facility] [address] [place] [address] Dr. Ivett Scott MCH (RBC) [Entitic mass] 29.5 pg Normal 26.7-34.0 [facility] Comment on above: Performed By: #### CMP, HSTROPN, BNP ### # [facility] [address] [place] [address] Dr. Ivett Scott MCHC (RBC) [Mass/Vol] 32.8 g/dL Normal 29.9-35.2 [facility] Comment on above: Performed By: #### CMP, HSTROPN, BNP ### # [facility] [address] [place] [address] Dr. Ivett Scott MCV (RBC) [Entitic vol] 90.1 fL Normal 81.0-99.0 [facility] Comment on above: Performed By: #### CMP, HSTROPN, BNP ### # [facility] [address] [place] [address] Dr. Ivett Scott MONO # 0.5 103/ul Normal 0.3-0.8 [facility] Comment on above: Performed By: #### CMP, HSTROPN, BNP ### # [facility] [address] [place] [address] Dr. Ivett Scott Monocytes/100 WBC (Bld) 8.0 % Normal 1.7-12.0 [facility] Comment on above: Performed By: #### CMP, HSTROPN, BNP ### # [facility] [address] [place] [address] Dr. Ivett Scott NEUT # 3.5 103/ul Normal 1.4-6.5 [facility] Comment on above: Performed By: #### CMP, HSTROPN, BNP ### # [facility] [address] [address] [address] Ivett Scott Neutrophils/100 WBC (Bld) 55.4 % Normal 43.0-75.0 [facility] Comment on above: Performed By: #### CMP, HSTROPN, BNP ### # [facility] [address] [place] [address] Dr. Ivett Scott Platelet mean volume (Bld) [Entitic vol] 9.7 fL Normal 9.5-13.5 [facility] Comment on above: Performed By: #### CMP, HSTROPN, BNP ### # [facility] [address] [place] [address] Dr. Ivett Scott PLT 170 103/ul Normal 150-450 [facility] Comment on above: Performed By: #### CMP, HSTROPN, BNP ### # [facility] [address] [place] [address] Dr. Ivett Scott RBC 4.54 106/ul Normal 4.20-5.40 [facility] Comment on above: Performed By: #### CMP, HSTROPN, BNP ### # [facility] [address] [place] [address] Dr. Ivett Scott WBC 6.4 103/ul Normal 4.0-11.0 [facility] Comment on above: Performed By: #### CMP, HSTROPN, BNP ### # [facility] [address] [place] [address] Dr. Ivett Scott GLYCOHEMOGLOBIN A1Con 2022 ADA RECOMMENDATION SEE BELOW Normal [facility] Comment on above: Result Comment: ADA RECOMMENDED LIMIT 4. 0 - 6.0 ADA THERAPEUTIC TARGET < 7.0 ACTION SUGGESTED > 7.0 Performed By: #### A 1C #### [facility] [address] [place] [address] Dr. Ivett Scott Glucose [Mass/Vol] 111 mg/dL Normal [facility] Comment on above: Performed By: #### A1C #### [facility] [address] [address] [address] Ivett Scott HbA1c (Bld) [Mass fraction] 5.5 % Normal 4.5-6.2 [facility] Comment on above: Performed By: #### A1C #### [facility] [address] [place] [address] Dr. Ivett Scott PROF CHEM 8 (BAS METB)on Anion gap [Moles/Vol] 13.4 mmol/L Normal [facility] Comment on above: Performed By: #### BMP #### [facility] [address] [address] [address] Ivett Scott Calcium [Mass/Vol] 9.1 mg/dL Normal 8.5-10.1 [facility] Comment on above: Performed By: #### BMP #### [facility] [address] [place] [address] Dr. Ivett Scott Chloride [Moles/Vol] 106 mmol/L Normal 98-107 [facility] Comment on above: Performed By: #### BMP #### [facility] [address] [address] [address] Ivett Scott CO2 [Moles/Vol] 27.5 mmol/L Normal 21.0-32.0 [facility] Comment on above: Performed By: #### BMP #### [facility] [address] [place] [address] Dr. Ivett Scott Creatinine [Mass/Vol] 0.48 mg/dL Critically low 0.55-1.02 [facility] Comment on above: Performed By: #### BMP #### [facility] [address] [place] [address] Dr. Ivett Scott EGFR-AF SRI LANKAN >60 Normal >=60 [facility] Comment on above: Performed By: #### BMP #### [facility] [address] [place] [address] Dr. Ivett Scott EGFR-NON AF SRI LANKAN >60 Normal >=60 [facility] Comment on above: Performed By: #### BMP #### [facility] [address] [place] [address] Dr. Ivett Scott Glucose [Mass/Vol] 106 mg/dL Normal 74-106 [facility] Comment on above: Performed By: #### BMP #### [facility] [address] [place] [address] Dr. Ivett Scott Potassium [Moles/Vol] 3.9 mmol/L Normal 3.5-5.1 [facility] Comment on above: Performed By: #### BMP #### [facility] [address] [place] [address] Dr. Ivett Scott Sodium [Moles/Vol] 143 mmol/L Normal 136-145 [facility] Comment on above: Performed By: #### BMP #### [facility] [address] [place] [address] Dr. Ivett Scott Urea nitrogen [Mass/Vol] 12.0 mg/dL Normal 7.0-18.0 [facility] Comment on above: Performed By: #### BMP #### [facility] [address] [place] [address] Dr. Ivett Scott Urea nitrogen/Creatin ine [Mass ratio] 25.0 mg/mg Normal [facility] Comment on above: Performed By: #### BMP #### [facility] [address] [place] [address] Dr. Ivett Scott CBC AUTO DIFFon 02-24-2022 BASO # 0.0 103/ul Normal 0.0-0.1 [facility] Comment on above: Performed By: #### CBC #### [facility] [address] [place] [address] Dr. Ivett Scott Basophils/100 WBC (Bld) 0.6 % Normal 0.2-2.0 [facility] Comment on above: Performed By: #### CBC #### [facility] [address] [place] [address] Dr. Ivett Scott EO # 0.2 103/ul Normal 0.0-0.7 [facility] Comment on above: Performed By: #### CBC #### [facility] [address] [place] [address] Dr. Ivett Scott Eosinophils/100 WBC (Bld) 3.1 % Normal 0.9-7.0 [facility] Comment on above: Performed By: #### CBC #### [facility] [address] [place] [address] Dr. Ivett Scott Erythrocyte distribution width (RBC) [Ratio] 13.2 % Normal 11.0-15.0 [facility] Comment on above: Performed By: #### CBC #### [facility] [address] [place] [address] Dr. Ivett Scott Hematocrit (Bld) [Volume fraction] 40.2 % Normal 36.0-48.0 [facility] Comment on above: Performed By: #### CBC #### [facility] [address] [place] [address] Dr. Ivett Scott Hemoglobin (Bld) [Mass/Vol] 13.2 g/dL Normal 12.0-16.0 [facility] Comment on above: Performed By: #### CBC #### [facility] [address] [place] [address] Dr. Ivett Scott IG # 0.01 10e3/ul Normal 0.00-0.03 [facility] Comment on above: Performed By: #### CBC #### [facility] [address] [place] [address] Dr. Ivett Scott IG % 0.2 % Normal 0.0-0.5 [facility] Comment on above: Performed By: #### CBC #### [facility] [address] [place] [address] Dr. Ivett Scott LYMPH # 1.7 103/ul Normal 1.2-3.8 [facility] Comment on above: Performed By: #### CBC #### [facility] [address] [place] [address] Dr. Ivett Scott Lymphocytes/100 WBC (Bld) 33.6 % Normal 20.5-60.0 [facility] Comment on above: Performed By: #### CBC #### [facility] [address] [place] [address] Dr. Ivett Scott MANUAL DIFF REQ NO Normal [facility] Comment on above: Performed By: #### CBC #### [facility] [address] [address] [address] Ivett Scott MCH (RBC) [Entitic mass] 29.5 pg Normal 26.7-34.0 [facility] Comment on above: Performed By: #### CBC #### [facility] [address] [place] [address] Dr. Ivett Scott MCHC (RBC) [Mass/Vol] 32.8 g/dL Normal 29.9-35.2 [facility] Comment on above: Performed By: #### CBC #### [facility] [address] [place] [address] Dr. Ivett Scott MCV (RBC) [Entitic vol] 89.9 fL Normal 81.0-99.0 [facility] Comment on above: Performed By: #### CBC #### [facility] [address] [place] [address] Dr. Ivett Scott MONO # 0.4 103/ul Normal 0.3-0.8 [facility] Comment on above: Performed By: #### CBC #### [facility] [address] [place] [address] Dr. Ivett Scott Monocytes/100 WBC (Bld) 7.8 % Normal 1.7-12.0 [facility] Comment on above: Performed By: #### CBC #### [facility] [address] [place] [address] Dr. Ivett Scott NEUT # 2.8 103/ul Normal 1.4-6.5 [facility] Comment on above: Performed By: #### CBC #### [facility] [address] [place] [address] Dr. Ivett Scott Neutrophils/100 WBC (Bld) 54.7 % Normal 43.0-75.0 [facility] Comment on above: Performed By: #### CBC #### [facility] [address] [place] [address] Dr. Ivett Scott Platelet mean volume (Bld) [Entitic vol] 9.9 fL Normal 9.5-13.5 [facility] Comment on above: Performed By: #### CBC #### [facility] [address] [address] [address] Ivett Scott PLT 191 103/ul Normal 150-450 [facility] Comment on above: Performed By: #### CBC #### [facility] [address] [address] [address] Ivett Scott RBC 4.47 106/ul Normal 4.20-5.40 [facility] Comment on above: Performed By: #### CBC #### [facility] [address] [address] [address] Ivett Scott WBC 5.2 103/ul Normal 4.0-11.0 [facility] Comment on above: Performed By: #### CBC #### [facility] [address] [place] [address] Dr. Ivett Scott LIPID PROFILEon 02-24-2022 CHOL-HDL RATIO NORM SEE BELOW Normal [facility] Comment on above: Result Comment: 3.3 - 4.4 LOW RISK 4.4 - 7.1 AVERAGE RISK 7.1 - 11.0 MODERATE RISK >11.0 HIGH RISK Performed By: #### C MP, LIPID #### [facility] [address] [place] [address] Dr. Ivett Scott Cholesterol [Mass/Vol] 231 mg/dL Critically high <=200 [facility] Comment on above: Performed By: #### CMP, LIPID #### [facility] [address] [place] [address] Dr. Ivett Scott Cholesterol in HDL [Mass/Vol] 61 mg/dL Critically high 40-60 [facility] Comment on above: Performed By: #### CMP, LIPID #### [facility] [address] [place] [address] Dr. Ivett Scott Cholesterol in LDL [Mass/Vol] 140.0 mg/dL Normal [facility] Comment on above: Performed By: #### CMP, LIPID #### [facility] [address] [address] [address] Ivett Scott Cholesterol.tota l/Cholesterol in HDL [Mass ratio] 3.8 {ratio} Normal [facility] Comment on above: Performed By: #### CMP, LIPID #### [facility] [address] [address] [address] Ivett Scott HDL NORMAL > or = 60 mg/dl - LO W CARDIOVASCULAR RISK <40 mg/dl - HIGH CARDIOVASCULAR RISK Normal [facility] Comment on above: Performed By: #### CMP, LIPID #### [facility] [address] [address] [address] Ivett Scott LDL CALC NORMAL SEE BELOW Normal [facility] Comment on above: Result Comment: <100 mg/dl OPTIMAL 100 - 129 mg/dl NEAR OR ABOVE OPTIMAL 130 - 159 mg/dl BORDERLINE HIGH 160 - 189 mg/dl HIGH >190 mg/dl VERY HIGH Performed By: #### C MP, LIPID #### [facility] [address] [address] [address] Ivett Scott Triglyceride [Mass/Vol] 150 mg/dL Normal <=150 [facility] Comment on above: Performed By: #### CMP, LIPID #### [facility] [address] [address] [address] Ivett Scott VLDL CALC 30.0 mg/dL Normal [facility] Comment on above: Performed By: #### CMP, LIPID #### [facility] [address] [place] [address] Dr. Ivett Scott PROF 14(COMP METB)on 022 Albumin [Mass/Vol] 3.4 g/dL Normal 3.4-5.0 [facility] Comment on above: Performed By: #### CMP, HSTROPN, BNP ### # [facility] [address] [place] [address] Dr. Ivett Scott Albumin/Globulin [Mass ratio] 0.9 {ratio} Normal [facility] Comment on above: Performed By: #### CMP, HSTROPN, BNP ### # [facility] [address] [place] [address] Dr. Ivett Scott ALP [Catalytic activity/Vol] 56 U/L Normal 46-116 [facility] Comment on above: Performed By: #### CMP, HSTROPN, BNP ### # [facility] [address] [place], [place] [id number] Dr. Ivett Scott ALT [Catalytic activity/Vol] 21 U/L Normal 14-59 [facility] Comment on above: Performed By: #### CMP, HSTROPN, BNP ### # [facility] [address] [place] [address] Dr. Ivett Scott Anion gap [Moles/Vol] 11.5 mmol/L Normal [facility] Comment on above: Performed By: #### CMP, HSTROPN, BNP ### # [facility] [address] [place] [address] Dr. Ivett Scott AST [Catalytic activity/Vol] 22 U/L Normal 15-37 [facility] Comment on above: Performed By: #### CMP, HSTROPN, BNP ### # [facility] [address] [place] [address] Dr. Ivett Scott Bilirubin [Mass/Vol] 0.5 mg/dL Normal 0.2-1.0 [facility] Comment on above: Performed By: #### CMP, HSTROPN, BNP ### # [facility] [address] [place] [address] Dr. Ivett Scott Calcium [Mass/Vol] 8.8 mg/dL Normal 8.5-10.1 [facility] Comment on above: Performed By: #### CMP, HSTROPN, BNP ### # [facility] [address] [place] [address] Dr. Ivett Scott Chloride [Moles/Vol] 104 mmol/L Normal 98-107 [facility] Comment on above: Performed By: #### CMP, HSTROPN, BNP ### # [facility] [address] [place] [address] Dr. Ivett Scott CO2 [Moles/Vol] 26.3 mmol/L Normal 21.0-32.0 [facility] Comment on above: Performed By: #### CMP, HSTROPN, BNP ### # [facility] [address] [place] [address] Dr. Ivett Scott Creatinine [Mass/Vol] 0.57 mg/dL Normal 0.55-1.02 [facility] Comment on above: Performed By: #### CMP, HSTROPN, BNP ### # [facility] [address] [address] [address] Ivett Scott EGFR-AF SRI LANKAN >60 Normal >=60 [facility] Comment on above: Performed By: #### CMP, HSTROPN, BNP ### # [facility] [address] [address] [address] Ivett Scott EGFR-NON AF SRI LANKAN >60 Normal >=60 [facility] Comment on above: Performed By: #### CMP, HSTROPN, BNP ### # [facility] [address] [address] [address] Ivett Scott Globulin (S) [Mass/Vol] 3.6 g/dL Normal [facility] Comment on above: Performed By: #### CMP, HSTROPN, BNP ### # [facility] [address] [place] [address] Dr. Ivett Scott Glucose [Mass/Vol] 98 mg/dL Normal 74-106 [facility] Comment on above: Performed By: #### CMP, HSTROPN, BNP ### # [facility] [address] [address] [address] Ivett Soctt Potassium [Moles/Vol] 3.8 mmol/L Normal 3.5-5.1 [facility] Comment on above: Performed By: #### CMP, HSTROPN, BNP ### # [facility] [address] [address] [address] Ivett Scott Protein [Mass/Vol] 7.0 g/dL Normal 6.4-8.2 [facility] Comment on above: Performed By: #### CMP, HSTROPN, BNP ### # [facility] [address] [address] [address] Ivett Scott Sodium [Moles/Vol] 138 mmol/L Normal 136-145 [facility] Comment on above: Performed By: #### CMP, HSTROPN, BNP ### # [facility] [address] [address] [address] Ivett Scott Urea nitrogen [Mass/Vol] 12.0 mg/dL Normal 7.0-18.0 [facility] Comment on above: Performed By: #### ADAM MITTAL, BNP ### # [facility] [address] [place] [address] Dr. Ivett Scott Urea nitrogen/Creatin ine [Mass ratio] 21.1 mg/mg Normal [facility] Comment on above: Performed By: #### ADAM MITTAL, BNP ### # [facility] [address] [place] [address] Dr. Ivett Scott CULTURE URINEon 01-17-2022 CULTURE URINE Isolate 1 Citrobacter koseri >100,000 cfu/mL of ORGANISM 1 Citrobacter koseri ANTIBIOTIC M.I.C RX STATUS Piperacillin/Tazobactam <=4 S F Cefazolin <=4 S F Ceftazidime <=1 S F Ceftriaxone <=1 S F Ertapenem <=0.5 S F Imipenem <=0.25 S F Amikacin <=2 S F Gentamicin <=1 S F Tobramycin <=1 S F Ciprofloxacin <=0.25 S F Levofloxacin <=0.12 S F Nitrofurantoin <=16 S F Trimethoprim/Sulfamethoxaz ole <=20 S F Normal [facility] Comment on above: Performed By: #### ADAM MITTAL, BNP ### # [facility] [address] [place] [address] Dr. Ivett Scott UA RANDOMon 01-14-2022 Bilirubin Ql (U) Negative Normal NEGATIVE [facility] Comment on above: Performed By: #### UA #### [facility] [address] [place] [address] Dr. Ivett Scott Clarity (U) CLOUDY Abnormal CLEAR [facility] Comment on above: Performed By: #### UA #### [facility] [address] [place] [address] Dr. Ivett Scott Color (U) LT. YELLOW Normal YELLOW [facility] Comment on above: Performed By: #### UA #### [facility] [address] [place] [address] Dr. Ivett Scott Glucose Ql (U) Negative Normal NEGATIVE [facility] Comment on above: Performed By: #### UA #### [facility] [address] [place] [address] Dr. Ivett Scott Hemoglobin Ql (U) LARGE Abnormal NEGATIVE [facility] Comment on above: Performed By: #### UA #### [facility] [address] [place] [address] Dr. Ivett Scott Ketones Ql (U) TRACE Abnormal NEGATIVE [facility] Comment on above: Performed By: #### UA #### [facility] [address] [place] [address] Dr. Ivett Scott LEUKOCYTES MODERATE Abnormal NEGATIVE [facility] Comment on above: Performed By: #### UA #### [facility] [address] [place] [address] Dr. Ivett Scott Nitrite Ql (U) Positive Abnormal NEGATIVE [facility] Comment on above: Performed By: #### UA #### [facility] [address] [place] [address] Dr. Ivett Scott pH (U) 6.5 [pH] Normal 5-9 [facility] Comment on above: Performed By: #### UA #### [facility] [address] [place] [address] Dr. Ivett Scott SPEC GRAVITY 1.020 Normal 1.005-<=1.[address] [facility] Comment on above: Performed By: #### UA #### [facility] [address] [place] [address] Dr. Ivett Scott UA PROTEIN 100 mg/dl Abnormal NEGATIVE/ TRACE [facility] Comment on above: Performed By: #### UA #### [facility] [address] [place] [address] Dr. Ivett Scott Urobilinogen Qn (U) 0.2 {Mireya'U}/dL Normal 0.2 - 1.0 [facility] Comment on above: Performed By: #### UA #### [facility] [address] [place] [address] Dr. Ivett Scott BNPon 12-26-2021 Natriuretic peptide B (Bld) [Mass/Vol] 185.0 pg/mL Normal <=900.0 [facility] Comment on above: Performed By: #### CMP, HSTROPN, BNP ### # [facility] [address] [place] [address] Dr. Ivett Scott CBC AUTO DIFFon 12-26-2021 BASO # 0.0 103/ul Normal 0.0-0.1 [facility] Comment on above: Performed By: #### CBC #### [facility] [address] [place] [address] Dr. Ivett Scott Basophils/100 WBC (Bld) 0.4 % Normal 0.2-2.0 [facility] Comment on above: Performed By: #### CBC #### [facility] [address] [place] [address] Dr. Ivett Sctot EO # 0.0 103/ul Normal 0.0-0.7 [facility] Comment on above: Performed By: #### CBC #### [facility] [address] [place] [address] Dr. Ivett Scott Eosinophils/100 WBC (Bld) 0.0 % Critically low 0.9-7.0 [facility] Comment on above: Performed By: #### CBC #### [facility] [address] [place] [address] Dr. Ivett Scott Erythrocyte distribution width (RBC) [Ratio] 13.1 % Normal 11.0-15.0 [facility] Comment on above: Performed By: #### CBC #### [facility] [address] [place] [address] Dr. Ivett Scott Hematocrit (Bld) [Volume fraction] 41.0 % Normal 36.0-48.0 [facility] Comment on above: Performed By: #### CBC #### [facility] [address] [place] [address] Dr. Ivett Scott Hemoglobin (Bld) [Mass/Vol] 13.5 g/dL Normal 12.0-16.0 [facility] Comment on above: Performed By: #### CBC #### [facility] [address] [place] [address] Dr. Ivett Scott IG # 0.04 10e3/ul Critically high 0.00-0.03 [facility] Comment on above: Performed By: #### CBC #### [facility] [address] [place] [address] Dr. Ivett Scott IG % 0.6 % Critically high 0.0-0.5 [facility] Comment on above: Performed By: #### CBC #### [facility] [address] [place] [address] Dr. Ivett Scott LYMPH # 0.9 103/ul Critically low 1.2-3.8 [facility] Comment on above: Performed By: #### CBC #### [facility] [address] [place] [address] Dr. Ivett Scott Lymphocytes/100 WBC (Bld) 13.0 % Critically low 20.5-60.0 [facility] Comment on above: Performed By: #### CBC #### [facility] [address] [place] [address] Dr. Ivett Scott MANUAL DIFF REQ NO Normal [facility] Comment on above: Performed By: #### CBC #### [facility] [address] [place] [address] Dr. Ivett Scott MCH (RBC) [Entitic mass] 30.1 pg Normal 26.7-34.0 [facility] Comment on above: Performed By: #### CBC #### [facility] [address] [place] [address] Dr. Ivett Scott MCHC (RBC) [Mass/Vol] 32.9 g/dL Normal 29.9-35.2 [facility] Comment on above: Performed By: #### CBC #### [facility] [address] [place] [address] Dr. Ivett Scott MCV (RBC) [Entitic vol] 91.3 fL Normal 81.0-99.0 [facility] Comment on above: Performed By: #### CBC #### [facility] [address] [place] [address] Dr. Ivett Scott MONO # 0.2 103/ul Critically low 0.3-0.8 [facility] Comment on above: Performed By: #### CBC #### [facility] [address] [place] [address] Dr. Ivett Scott Monocytes/100 WBC (Bld) 3.0 % Normal 1.7-12.0 [facility] Comment on above: Performed By: #### CBC #### [facility] [address] [place] [address] Dr. Ivett Scott NEUT # 5.8 103/ul Normal 1.4-6.5 [facility] Comment on above: Performed By: #### CBC #### [facility] [address] [place] [address] Dr. Ivett Scott Neutrophils/100 WBC (Bld) 83.0 % Critically high 43.0-75.0 [facility] Comment on above: Performed By: #### CBC #### [facility] [address] [place] [address] Dr. Ivett Scott Platelet mean volume (Bld) [Entitic vol] 9.7 fL Normal 9.5-13.5 [facility] Comment on above: Performed By: #### CBC #### [facility] [address] [place] [address] Dr. Ivett Scott PLT 165 103/ul Normal 150-450 [facility] Comment on above: Performed By: #### CBC #### [facility] [address] [place] [address] Dr. Ivett Scott RBC 4.49 106/ul Normal 4.20-5.40 [facility] Comment on above: Performed By: #### CBC #### [facility] [address] [place] [address] Dr. Ivett Scott WBC 7.0 103/ul Normal 4.0-11.0 [facility] Comment on above: Performed By: #### CBC #### [facility] [address] [place] [address] Dr. Ivett Scott [facility]on SARS-CoV-2 (COVID-19) RNA LJ+probe Ql (Unsp spec) Not detected Normal NOT DETECTED [facility] Comment on above: Result Comment: When diagnostic testing is negative, the possibility of a false negative should be considered in the context of a patient's recent exposures and the presence of clinical signs and symptoms consistent with SARS-CoV-2. This test is not yet approved or cleared by the [place] FDA. When there are no FDA-approved or cleared tests available, and other criteria are met, FDA can make tests available under an emergency access mechanism called an Emergency Use Authorization (EUA). The EUA for this test is supported by the [employer] Operator of Health and Human Service's declaration that circumstances exist to justify the emergency use of in vitro diagnostics for the detection and/or diagnosis of the virus that causes COVID-19. This EUA will remain in effect for the duration of the COVID-19 declaration justifying emergency of IVDs, unless it is terminated or revoked by the FDA (after which the test may no longer be used). Performed By: #### C MP, HSTROPN, BNP #### [facility] [address] [place] [address] Dr. Ivett Scott PROF 14(COMP METB)on 022 Albumin [Mass/Vol] 3.6 g/dL Normal 3.4-5.0 [facility] Comment on above: Performed By: #### CMP, HSTROPN, BNP ### # [facility] [address] [place] [address] Dr. Ivett Scott Albumin/Globulin [Mass ratio] 1.0 {ratio} Normal [facility] Comment on above: Performed By: #### CMP, HSTROPN, BNP ### # [facility] [address] [place] [address] Dr. Ivett Scott ALP [Catalytic activity/Vol] 56 U/L Normal 46-116 [facility] Comment on above: Performed By: #### CMP, HSTROPN, BNP ### # [facility] [address] [place] [address] Dr. Ivett Scott ALT [Catalytic activity/Vol] 46 U/L Normal 14-59 [facility] Comment on above: Performed By: #### CMP, HSTROPN, BNP ### # [facility] [address] [address] [address] Ivett Scott Anion gap [Moles/Vol] 12.1 mmol/L Normal [facility] Comment on above: Performed By: #### CMP, HSTROPN, BNP ### # [facility] [address] [address] [address] Ivett Scott AST [Catalytic activity/Vol] 30 U/L Normal 15-37 [facility] Comment on above: Performed By: #### CMP, HSTROPN, BNP ### # [facility] [address] [address] [address] Ivett Scott Bilirubin [Mass/Vol] 0.4 mg/dL Normal 0.2-1.0 [facility] Comment on above: Performed By: #### CMP, HSTROPN, BNP ### # [facility] [address] [address] [address] Ivett Scott Calcium [Mass/Vol] 8.8 mg/dL Normal 8.5-10.1 [facility] Comment on above: Performed By: #### CMP, HSTROPN, BNP ### # [facility] [address] [address] [address] Ivett Scott Chloride [Moles/Vol] 105 mmol/L Normal 98-107 [facility] Comment on above: Performed By: #### CMP, HSTROPN, BNP ### # [facility] [address] [address] [address] Ivett Scott CO2 [Moles/Vol] 26.5 mmol/L Normal 21.0-32.0 [facility] Comment on above: Performed By: #### CMP, HSTROPN, BNP ### # [facility] [address] [address] [address] Ivett Scott Creatinine [Mass/Vol] 0.68 mg/dL Normal 0.55-1.02 [facility] Comment on above: Performed By: #### CMP, HSTROPN, BNP ### # [facility] [address] [address] [address] Ivett Scott EGFR-AF SRI LANKAN >60 Normal >=60 [facility] Comment on above: Performed By: #### CMP, HSTROPN, BNP ### # [facility] [address] [address] [address] Ivett Scott EGFR-NON AF SRI LANKAN >60 Normal >=60 [facility] Comment on above: Performed By: #### CMP, HSTROPN, BNP ### # [facility] [address] [address] [address] Ivett Scott Globulin (S) [Mass/Vol] 3.7 g/dL Normal [facility] Comment on above: Performed By: #### CMP, HSTROPN, BNP ### # [facility] [address] [address] [address] Ivett Scott Glucose [Mass/Vol] 155 mg/dL Critically high 74-106 [facility] Comment on above: Performed By: #### CMP, HSTROPN, BNP ### # [facility] [address] [place] [address] Dr. Ivett Scott Potassium [Moles/Vol] 3.6 mmol/L Normal 3.5-5.1 [facility] Comment on above: Performed By: #### CMP, HSTROPN, BNP ### # [facility] [address] [place] [address] Dr. Ivett Scott Protein [Mass/Vol] 7.3 g/dL Normal 6.4-8.2 [facility] Comment on above: Performed By: #### CMP, HSTROPN, BNP ### # [facility] [address] [address] [address] Ivett Scott Sodium [Moles/Vol] 140 mmol/L Normal 136-145 [facility] Comment on above: Performed By: #### CMP, HSTROPN, BNP ### # [facility] [address] [place] [address] Dr. Ivett Scott Urea nitrogen [Mass/Vol] 12.0 mg/dL Normal 7.0-18.0 [facility] Comment on above: Performed By: #### CMP, HSTROPN, BNP ### # [facility] [address] [place] [address] Dr. Ivett Scott Urea nitrogen/Creatin ine [Mass ratio] 17.6 mg/mg Normal [facility] Comment on above: Performed By: #### CMP, HSTROPN, BNP ### # [facility] [address] [place] [address] Dr. Ivett Scott PROTIMEon 12-26-2021 INR Coag (PPP) [Relative time] 0.95 {INR} Normal [facility] Comment on above: Performed By: #### CMP, HSTROPN, BNP ### # [facility] [address] [place] [address] Dr. Ivett Scott INR GUIDELINES SEE BELOW Normal [facility] Comment on above: Result Comment: DESIRED INR: 2.0 - 3.0 C ONDITIONS NOT LISTED BELOW 2.5 - 3.5 FOR PROSTHETIC HEART VALVE REPLACEMENT 2.5 - 3.5 RECURRENT THROMBOSIS Performed By: #### C MP, HSTROPN, BNP #### [facility] [address] [place] [address] Dr. Ivett Scott PT Coag (PPP) [Time] 10.3 s Normal 9.0-11.6 [facility] Comment on above: Performed By: #### CMP, HSTROPN, BNP ### # [facility] [address] [place] [address] Dr. Ivett Scott PTTon 12-26-2021 aPTT Coag (Bld) [Time] 26.7 s Normal 22.3-36.2 [facility] Comment on above: Performed By: #### CMP, HSTROPN, BNP ### # [facility] [address] [place] [address] Dr. Ivett Scott TROPONIN, HIGH SENSITIVITYon 12-26-2021 HSTROP 5.2 pg/mL Normal 4.0-51.3 [facility] Comment on above: Result Comment: CUT-OFF POINTS HAVE BEEN ESTABLISHED BASED ON THE FOURTH UNIVERSAL DEFINITIONS OF MYOCARDIAL INFARCTION. THE UPPER REFERENCE LIMIT (URL) OF TROPONIN, DEFINED THE 99TH PERCENTILE OF cTnI DISTRIBUTION IN A REFERENCE POPULATION, HAS BEEN CONFIRMED THE DECISION THRESHOLD FOR OR DIAGNOSIS. Performed By: #### C MP, HSTROPN, BNP #### [facility] [address] [place], [place] [address] Dr. Ivett Scott XR CHEST 1 Von 12-26-2021 XR CHEST 1 V EXAMINATION: XR CHES T 1 V HISTORY: SHORTNESS OF BREATH , cough, wheezing COMPARISON: XR chest 08/07/2021 FINDINGS: LUNGS: No significant pulmonary parenchymal abnormalities. VASCULATURE: No increased pulmonary vasculature. PLEURA: No pneumothorax, effusion, or pleural thickening. CARDIAC: No cardiomegaly or cardiac silhouette abnormality. MEDIASTINUM: No visible mass or adenopathy. BONES: No fracture or visible bone lesion. OTHER: Negative. IMPRESSION: 1. Normal examination. Electronically authenticated by: MIHAI MAI Date: 2021-12-26 14:13 Normal [facility] CULTURE URINEon 12-13-2021 CULTURE URINE Culture Observations : LIGHT GROWTH OF MIXED GENITAL KARTHIK. NO POTENTIAL PATHOGENS SEEN. Normal [facility] Comment on above: Performed By: #### CMP, HSTROPN, BNP ### # [facility] [address] [address] [address] Ivett Scott HEMOGLOBINon 11-05-2021 Hemoglobin (Bld) [Mass/Vol] 13.0 g/dL Normal 12.0-16.0 [facility] Comment on above: Performed By: #### HGB #### [facility] [address] [place] [address] Dr. Ivett Scott Vital Signs Date Time Vital Sign Value Performing Clinician Facility 08-20-2023 14:20040 Body height 167.64 cm PHYSICIAN NO [facility] 08-20-2023 14:20-040 Body mass index (BMI) [Ratio] 33.6 kg/m2 PHYSICIAN NO [facility] 08-20-2023 14:20-040 Body temperature 98.1 [degF] PHYSICIAN NO [facility] 08-20-2023 14:20-040 Body weight 94.51 kg PHYSICIAN NO [facility] 08-20-2023 14:20-0400 Heart rate 91 /min PHYSICIAN NO [facility] 08-20-2023 14:20-0400 Respiratory rate 18 /min PHYSICIAN NO [facility] 08-20-2023 14:20-0400 SaO2% (BldA) [Mass fraction] 98 % PHYSICIAN NO [facility] 07-30-2023 17:29-0400 Body height 167.64 cm PHYSICIAN NO [facility] 07-30-2023 17:29-0400 Body mass index (BMI) [Ratio] 34.1 kg/m2 PHYSICIAN NO [facility] 07-30-2023 17:29-0400 Body weight 95.87 kg PHYSICIAN NO [facility] 07-30-2023 17:29-0400 Diastolic blood pressure 80 mm[Hg] PHYSICIAN NO [facility] 07-30-2023 17:29-0400 Heart rate 60 /min PHYSICIAN NO [facility] 07-30-2023 17:29-0400 Respiratory rate 18 /min PHYSICIAN NO [facility] 07-30-2023 17:29-0400 SaO2% (BldA) [Mass fraction] 95 % PHYSICIAN NO [facility] 07-30-2023 17:29-0400 Systolic blood pressure 140 mm[Hg] PHYSICIAN NO [facility] 04-27-2023 10:40-0500 Body height 170.18 cm Sky Resendiz Other [facility] Other 04-27-2023 10:40-0500 Body mass index (BMI) [Ratio] 32.89 kg/m2 Sky Resendiz Other [facility] Other 04-27-2023 10:40-0500 Body weight 95.26 kg Sky Resendiz Other [facility] Other 04-17-2023 09:30-0500 Body height 170.18 cm Kianna Blackwell Other [facility] Other 04-17-2023 09:30-0500 Body mass index (BMI) [Ratio] 32.92 kg/m2 Kianna Blackwell Other [facility] Other 04-17-2023 09:30-0500 Body temperature 98.2 [degF] Kianna Blackwell Other [facility] Other 04-17-2023 09:30-0500 Body weight 95.35 kg Kianna Blackwell Other [facility] Other 04-17-2023 09:30-0500 Diastolic blood pressure 89 mm[Hg] Kianna Blackwell Other [facility] Other 04-17-2023 09:30-0500 Respiratory rate 18 /min Kianna Blackwell Other [facility] Other 04-17-2023 09:30-0500 SaO2% (BldA) [Mass fraction] 96 % Kianna Blackwell Other [facility] Other 04-17-2023 09:30-0500 Systolic blood pressure 158 mm[Hg] Kianna Blackwell Other [facility] Other 04-01-2023 10:30-0500 Body height 170.18 cm Marie Mandy Other [facility] Other 04-01-2023 10:30-0500 Body mass index (BMI) [Ratio] 32.26 kg/m2 Marie Mandy Other [facility] Other 04-01-2023 10:30-0500 Body temperature 97.4 [degF] Marie Mandy Other [facility] Other 12-13-2023 10:30-0500 Body weight 93.44 kg Marie Mandy Other [facility] Other 04-01-2023 10:30-0500 Diastolic blood pressure 84 mm[Hg] Marie Mandy Other [facility] Other 04-01-2023 10:30-0500 Respiratory rate 20 /min Marie Mandy Other [facility] Other 04-01-2023 10:30-0500 SaO2% (BldA) [Mass fraction] 100 % Marie Mandy Other [facility] Other 04-01-2023 10:30-0500 Systolic blood pressure 131 mm[Hg] Marie Mandy Other [facility] Other 02-18-2023 13:10-0400 Body height 170.18 cm Mary Reyezmond Other [facility] Other 02-18-2023 13:10-0400 Body mass index (BMI) [Ratio] 33.11 kg/m2 Mary Sophia Other [facility] Other 02-18-2023 13:10-0400 Body temperature 97.9 [degF] Mary Sophia Other [facility] Other 02-18-2023 13:10-0400 Body weight 95.89 kg Mary Sophia Other [facility] Other 02-18-2023 13:10-0400 Diastolic blood pressure 72 mm[Hg] Mary Sophia Other [facility] Other 02-18-2023 13:10-0400 Respiratory rate 18 /min Mary Sophia Other [facility] Other 02-18-2023 13:10-0400 SaO2% (BldA) [Mass fraction] 98 % Mary Sophia Other [facility] Other 02-18-2023 13:10-0400 Systolic blood pressure 118 mm[Hg] Mary Sophia Other [facility] Other 02-11-2023 09:00-0400 Body height 170.18 cm Mary Sophia Other [facility] Other 02-11-2023 09:00-0400 Body mass index (BMI) [Ratio] 32.1 kg/m2 Mary Sophia Other [facility] Other 02-11-2023 09:00-0400 Body temperature 97.9 [degF] Mary Sophia Other [facility] Other 02-11-2023 09:00-0400 Body weight 92.99 kg Mary Sophia Other [facility] Other 02-11-2023 09:00-0400 Diastolic blood pressure 83 mm[Hg] Mary Sophia Other [facility] Other 02-11-2023 09:00-0400 Respiratory rate 18 /min Mary Sophia Other [facility] Other 02-11-2023 09:00-0400 SaO2% (BldA) [Mass fraction] 99 % Mary Sophia Other [facility] Other 02-11-2023 09:00-0400 Systolic blood pressure 169 mm[Hg] Mary Cortes Other [facility] Other 11-01-2022 09:35-0400 Body height 170.18 cm Jarred Rendon Other [facility] Other 11-01-2022 09:35-0400 Body mass index (BMI) [Ratio] 32.89 kg/m2 Jarred Rendon Other [facility] Other 11-01-2022 09:35-0400 Body temperature 97.1 [degF] Jarred Rendon Other [facility] Other 11-01-2022 09:35-0400 Body weight 95.26 kg Jarred Rendon Other [facility] Other 11-01-2022 09:35-0400 Diastolic blood pressure 83 mm[Hg] Jarred Rendon Other [facility] Other 11-01-2022 09:35-0400 Respiratory rate 18 /min Jarred Rendon Other [facility] Other 11-01-2022 09:35-0400 SaO2% (BldA) [Mass fraction] 98 % Jarred Rendon Other [facility] Other 11-01-2022 09:35-0400 Systolic blood pressure 137 mm[Hg] Jarred Rendon Other [facility] Other 10-05-2022 10:15-0400 Body height 170.18 cm Kalie French Other [facility] Other 10-05-2022 10:15-0400 Body mass index (BMI) [Ratio] 33.01 kg/m2 Kalie Gillian Other [facility] Other 10-05-2022 10:15-0400 Body temperature 98.2 [degF] Kalie Gillian Other [facility] Other 10-05-2022 10:15-0400 Body weight 95.62 kg Kalie Gillian Other [facility] Other 10-05-2022 10:15-0400 Diastolic blood pressure 76 mm[Hg] Kalie Gillian Other [facility] Other 10-05-2022 10:15-0400 Respiratory rate 18 /min Kalie Gillian Other [facility] Other 10-05-2022 10:15-0400 SaO2% (BldA) [Mass fraction] 98 % Kalie Gillian Other [facility] Other 10-05-2022 10:15-0400 Systolic blood pressure 131 mm[Hg] Kalie Gillian Other [facility] Other 03-19-2022 10:00-0500 Body height 170.18 cm Marie Mandy Other [facility] Other 03-19-2022 10:00-0500 Body mass index (BMI) [Ratio] 33.67 kg/m2 Marie Mandy Other [facility] Other 03-19-2022 10:00-0500 Body temperature 96.9 [degF] Marie Mandy Other [facility] Other 03-19-2022 10:00-0500 Body weight 97.52 kg Marie Mandy Other [facility] Other 03-19-2022 10:00-0500 Diastolic blood pressure 93 mm[Hg] Marie Mandy Other [facility] Other 03-19-2022 10:00-0500 Respiratory rate 20 /min Marie Mandy Other [facility] Other 03-19-2022 10:00-0500 SaO2% (BldA) [Mass fraction] 100 % Marie Mandy Other [facility] Other 03-19-2022 10:00-0500 Systolic blood pressure 160 mm[Hg] Marie Mandy Other [facility] Other 01-26-2022 10:15-0400 Body height 170.18 cm Yuridia Gloria Other [facility] Other 01-26-2022 10:15-0400 Body mass index (BMI) [Ratio] 34.2 kg/m2 Yuridia Gloria Other [facility] Other 01-26-2022 10:15-0400 Body temperature 97.8 [degF] Yuridia Gloria Other [facility] Other 01-26-2022 10:15-0400 Body weight 99.07 kg Yuridia Gloria Other [facility] Other 01-26-2022 10:15-0400 Diastolic blood pressure 85 mm[Hg] Yuridia Castro Other [facility] Other 01-26-2022 10:15-0400 Respiratory rate 20 /min Yuridia Castro Other [facility] Other 01-26-2022 10:15-0400 SaO2% (BldA) [Mass fraction] 97 % Yuridia Castro Other [facility] Other 01-26-2022 10:15-0400 Systolic blood pressure 140 mm[Hg] Yuridia Castro Other [facility] Other Encounters Encounter Date Encounter Type Care Provider Facility Start: 10-12-2023 End: 10-12-2023 ambulatory AYAN LUJAN Not Available Start: 09-03-2023 End: 09-03-2023 ambulatory SHELLY SPARROW Not Available Start: 08-20-2023 End: 08-20-2023 ambulatory Kalie French Facility:[facility] Start: 08-20-2023 End: 08-20-2023 ambulatory PHYSICIAN NO [facility] Work Phone: Start: 08-20-2023 End: 08-20-2023 Departed Referred PHYSICIAN NO [facility] [place] Work Phone: Start: 08-20-2023 End: 08-20-2023 Patient encounter procedure PHYSICIAN NO [facility] Work Phone: Start: 08-20-2023 End: 08-20-2023 ambulatory SHELLY SPARROW Not Available Start: 08-04-2023 End: 08-04-2023 ambulatory SHELLY SPARROW Not Available Start: 07-31-2023 End: 07-31-2023 ambulatory Mary Cortes Facility:[facility] Start: 07-30-2023 End: 07-30-2023 ambulatory PHYSICIAN NO [facility] Work Phone: Start: 07-30-2023 End: 07-30-2023 Patient encounter procedure PHYSICIAN NO [facility] Work Phone: Start: 07-30-2023 End: 07-30-2023 Patient encounter procedure PHYSICIAN NO [facility] Work Phone: Start: 06-25-2023 End: 06-25-2023 ambulatory Lawrence Olexa Facility:[facility] Start: 06-25-2023 End: 06-25-2023 Patient encounter procedure PHYSICIAN NO [facility] Work Phone: Start: 04-27-2023 End: 04-27-2023 ambulatory Sky Resendiz Other [facility] Other Start: 04-27-2023 Office outpatient visit 15 minutes Sky Resendiz [facility] Start: 04-27-2023 Telephone encounter Sky Kwan [facility] Start: 04-17-2023 End: 04-17-2023 ambulatory Kianna Blackwell Other [facility] Other Start: 04-17-2023 Office outpatient visit 15 minutes Kianna Blackwell [facility] Start: 04-01-2023 End: 04-01-2023 ambulatory Marie Mandy Other [facility] Other Start: 04-01-2023 Office outpatient visit 25 minutes Marie Mandy [facility] Start: 03-16-2023 End: 03-16-2023 ambulatory Calderon Ortiz Other [facility] Other Start: 03-16-2023 Telephone encounter Calderon Ortiz [facility] Start: 03-02-2023 End: 03-02-2023 ambulatory Garett L Rommel Facility:[facility] [place] [facility] Start: 02-25-2023 End: 02-25-2023 ambulatory Garett L Rommel Facility:[facility] Start: 02-25-2023 End: 02-25-2023 Patient encounter procedure Garett Tillman [facility] Start: 02-18-2023 Office outpatient visit 15 minutes Mary Cortes [facility] Start: 02-18-2023 End: 02-18-2023 ambulatory PHYSICIAN NO [facility] [employer] Other Start: 02-18-2023 End: 02-18-2023 Departed [facility]erred [facility] [place] Work Phone: Start: 02-17-2023 End: 02-17-2023 ambulatory Gosia Zaman Facility:[facility] Start: 02-11-2023 Office outpatient visit 15 minutes Mary Cortes [facility] Start: 02-11-2023 End: 02-11-2023 ambulatory PHYSICIAN NO FAMILY Facility:[facility] Start: 02-11-2023 End: 02-11-2023 ambulatory CERAMIC ENGINEER-C Mary Sophia Work Phone: [facility] Work Phone: Start: 02-11-2023 End: 02-11-2023 Departed Referred CERAMIC ENGINEER-C Mary Sophia Work Phone: [facility] [place] Work Phone: Start: 02-02-2023 End: 02-02-2023 ambulatory Calderon Ortiz Other [facility] Other Start: 02-02-2023 Telephone encounter Calderon TORO [facility] Start: 12-01-2022 End: 12-01-2022 ambulatory Nawaf Gonzalez Facility:[facility] [place] Start: 11-03-2022 End: 11-03-2022 ambulatory Jarred Rendon Other [facility] Other Start: 11-03-2022 Telephone encounter Jarred Rendon [facility] Start: 11-01-2022 End: 11-01-2022 ambulatory Jarred Justice Other [facility] Other Start: 11-01-2022 Office outpatient visit 15 minutes Jarred Justice [facility] Start: 10-05-2022 End: 10-05-2022 ambulatory Kalie French Other [facility] Other Start: 10-05-2022 Office outpatient visit 15 minutes Kalie French [facility] Start: 09-03-2022 End: 09-04-[address] ANDRES SIMMS . Facility:[facility] Start: 07-02-2022 End: 07-03-[address] ANDRSE SIMMS . Facility: Start: 03-19-2022 End: 03-19-2022 ambulatory Marie Galvan Other [facility] Other Start: 03-19-2022 Office outpatient ne w 45 minutes Marie Mandy [facility] Start: 02-24-2022 End: 02-25-[address] ANDRES SIMMS . Facility:[facility] Start: 02-11-2022 End: 02-11-2022 Patient encounter procedure Gosia Zaman [facility] Start: 01-26-2022 End: 01-26-2022 ambulatory Yuridia Castro Other [facility] Other Start: 01-26-2022 Office outpatient visit 15 minutes Yuridia Castro [facility] Start: 01-14-2022 End: 01-15-[address] DOCTOR RAMOS Facility:[facility] Start: 01-07-2022 End: 01-07-2022 ambulatory Calderon Ortiz Other [facility] Other Start: 01-07-2022 Telephone encounter Calderon TORO [facility] Start: 12-26-2021 End: 12-26-[address] GEE GALLOWAY Facility:[facility] Start: 12-13-2021 End: 12-14-[address] ANDRES SIMMS . Facility:[facility] Start: 11-05-2021 End: 11-06-[address] ANDRES SIMMS . Facility:[facility] Start: 10-09-2020 End: 10-09-2020 Patient encounter procedure Yuridia Castro Work Phone: [facility] Procedures Date Procedure Procedure Detail Performing Clinician Start: 07-30-2023 Urine culture PHYSICIAN NO FAMILY Start: 06-25-2023 Plain X-ray of right shoulder PHYSICIAN NO FAMILY Start: 02-11-2023 Piperacillin/tazobactam Mary Cortes Other Start: 02-11-2023 Urine culture PHYSICIAN NO FAMILY Start: 04-20-2021 Esophagogastroduodenoscopy Garett Tillman Comment on above: with Dilation Start: 10-09-2020 Diagnostic radiography of abdomen [facility] [place] Work Phone: Start: 04-20-2014 Colonoscopy Garett Tillman Start: 03-20-2009 Cholecystectomy Garett Rommel Comment on above: no date listed on previous medical recor d Plan of Treatment Date Care Activity Detail Author Start: 12-08-2023 ambulatory Ambulatory Facility:[facility] Start: 08-21-2023 Bacteria identified in Urine by Culture [facility] Start: 08-20-2023 Bacteria identified in Urine by Culture Urine Culture [facility] Start: 07-30-2023 Bacteria identified in Urine by Culture [facility] Start: 02-18-2023 Bacteria identified in Urine by Culture [facility] Start: 02-11-2023 Bacteria identified in Urine by Culture [facility] Start: 10-09-2020 Bacteria identified in Urine by Culture Urine Culture [facility] Immunizations Immunization Date Immunization Notes Care Provider Luis Armando park 04-02-2022 SARS-CoV-2 (COVID-19 ) [id number] Garett Rommel [facility] Comment on above: Result Comment: 2022: [id number] 02-15-2022 influenza virus vaccine, unspecified formulation Garett Rommel [facility] 02-15-2022 pneumococcal 20-samy nt conjugate vaccine Garett Rommel [facility] 02-20-2021 SARS-CoV-2 (COVID-19 ) mRNA-1273 vaccine Garett Rommel [facility] Comment on above: Result Comment: 2022: [id number] 07-11-2020 SARS-CoV-2 (COVID-19 ) mRNA-1273 vaccine Garett Rommel [facility] 06-14-2020 SARS-CoV-2 (COVID-19 ) mRNA-1273 vaccine Garett Rommel [facility] 02-27-2020 influenza virus vaccine, unspecified formulation Garett Rommel [facility] 06-14-2019 zoster vaccine recombinant Garett Rommel [facility] 01-24-2019 influenza virus vaccine, unspecified formulation Garett Rommel [facility] 02-19-2018 influenza virus vaccine, unspecified formulation Garett Rommel [facility] 01-06-2017 influenza virus vaccine, unspecified formulation Garett Rommel [facility] Payers Date Payer Category Payer Self-pay [id number] 1959 Medicare [id number] 2.1 [id number] 1959 Private Health Insurance CLI [id number] 1955 Unknown [id number] 2.16.84 0.1.302137.3.579.2.593 1955 Unknown [id number] 2.16.84 0.1.154137.3.579.2.593 1955 Unknown [id number] 2.16.84 0.1.555813.3.579.2.593 1955 Unknown [id number] 2.16.84 0.1.071100.3.579.2.593 1955 Unknown [id number] 2.16.84 0.1.677671.3.579.2.593 1955 Unknown [id number] 2.16.84 0.1.480379.3.579.2.593 1955 Unknown [id number] 2.16.84 0.1.137421.3.579.2.593 1955 Unknown [id number] 2.16.8 40.1.003420.3.579.2.727 1955 Unknown [id number] 2.16.8 40.1.788940.3.579.2.727 1955 Unknown [id number] 2.16.8 40.1.472568.3.579.2.727 1955 Unknown [id number] 2.16.8 40.1.207434.3.579.2.727 1955 Unknown [id number] 2.16.8 40.1.776899.3.579.2.727 1955 Unknown [id number] 2.16.84 0.1.972143.3.579.2.1259 1955 Unknown [id number] 2.16.84 0.1.510051.3.579.2.1259 1955 Unknown [id number] 2.16.84 0.1.198610.3.579.2.1259 1955 Unknown [id number] 2.16.84 0.1.858230.3.579.2.1259 1955 Unknown [id number] 2.16.84 0.1.603344.3.579.2.1259 Private Health Insurance [id number] Private Health Insurance [id number] Unknown [id number] Unknown [id number] 2.16.8 40.1.305819.3.579.2.531 Unknown [id number] 2.16.8 40.1.325900.3.579.2.531 Unknown [id number] 2.16.8 40.1.756285.3.579.2.531 Unknown [id number] 2.16.8 40.1.578505.3.579.2.531 Unknown [id number] 2.16.8 40.1.225072.3.579.2.531 Social History Date Type Detail [facility] Start: 1955 Sex Assigned At Female F [facility] Sex Assigned At [facility] Tobacco smoking status No Smokin g Status Entered [facility] Start: 12-01-2022 End: 06-18-2023 Tobacco smoking status Never smoked tobacco (finding) [facility] Tobacco smoking status Never [facility] Clinical Notes 10-18-2021 to 04-27-2023 Note Date & Type Note Facility 04-27-2023 Evaluation note Encounter Date Diagnosis Assessment Notes Apr, GERD (gastroesopha geal reflux disease) (ICD-10 - K21.9) The patient is here to restablish care. She was last seen for an EGD with Dr. Adams two years ago. She is under good control on Protonix 40 mg daily, We will continue this without change. Return visit here on one year. Apr, Screening (ICD-10 - Z13.9) The patient is due for a routine screening colonoscopy in 2024. Her last colonoscopy was performed at [facility] with Dr. Greenberg. Repeat colonoscopy in one year. [facility] Other 01-08-2024 Evaluation note* Encounter Date Diagnosis Assessment Notes Treatment Notes Treatment Clinical Notes Apr, GERD (gastroesophageal reflux disease) (ICD-10 - K21.9) [facility] Other 12-29-2023 Evaluation note* Encounter Date Diagnosis Assessment Notes Treatment Notes Treatment Clinical Notes Mar, Mild intermittent reactive airway disease with acute exacerbation (ICD-10 - J45.21) No signs of bacterial infection. Wheezing, no increased work of breathing, O2 sat 96% on RA. Likely triggered by burning incense. Steroid as directed, take with food, avoid additional NSAIDs while taking. Advised that may increase BP, monitor closely while on steroid, risk/benefit reviewed. Follow up with PCP in 1 week, sooner if sx change or worsen. Immediate eval by ER for worsening SOB, severe wheezing, Chest pain, Palpitations, light headedness/dizzines s. Patient verbailzes understanding and is agreeable to treatment plan. Mar, Other Asthma material was printed. [facility] Other 12-13-2023 Evaluation note* Encounter Date Diagnosis Assessment Notes Treatment Notes Treatment Clinical Notes Mar, Asthma (ICD-10 - J45.909) Notify office is you develop wheezing, cough, shortness of breath..will then order maintenance BREO or Symicort. Mar, Reactive airway disease with wheezing (ICD-10 - J45.909) Control seasonal allergy symptoms Mar, GERD (gastroesophageal reflux disease) (ICD-10 - K21.9) [facility] Other 11-01-2023 Evaluation note* Encounter Date Diagnosis Assessment Notes Treatment Notes Treatment Clinical Notes Feb, Dysuria (ICD-10 - R30.0) Feb, Cystitis (ICD-10 - N30.90) Drink plenty fluids, get plenty of rest. Take the Cipro as prescribed until gone. Follow-up with your urologist for reevaluation in the next week or so. Take Tylenol or Motrin as needed for aches pains or fevers [facility] Other 10-25-2023 Evaluation note* Encounter Date Diagnosis Assessment Notes Treatment Notes Treatment Clinical Notes Jan, Dysuria (ICD-10 - R30.0) Jan, Acute cystitis with hematuria (ICD-10 - N30.01) Drink plenty fluids, get plenty of rest. Take the Macrobid as prescribed until gone. Continue take the Azo for your symptoms. Follow-up with your family physician if no improvement in 2 to 3 days. [facility] Other 10-16-2023 Evaluation note* Encounter Date Diagnosis Assessment Notes Treatment Notes Treatment Clinical Notes Jan, GERD (gastroesophageal reflux disease) (ICD-10 - K21.9) [facility] Other 07-15-2023 Evaluation note* Encounter Date Diagnosis Assessment Notes Treatment Notes Treatment Clinical Notes Oct, Dysuria (ICD-10 - R30.0) Oct, Acute cystitis with hematuria (ICD-10 - N30.01) Meds as prescribed. Push fluids. Urine sent for culture and pt will be notified of results if any change needs to be made. Advised good hygiene and no sexual activity while on meds. Pt to f/u as needed with pcp for persistent or recurrent sx. Immediate eval in ER for abdominal pain, severe back pain, N/V/D, fever/chills, or severe dehydration. Pt understood and agreed to treatment plan. [facility] Other 06-18-2023 Evaluation note* Encounter Date Diagnosis Assessment Notes Treatment Notes Treatment Clinical Notes Sep, Moderate asthma with acute exacerbation, unspecified whether persistent (ICD-10 - J45.901) Discussed with patient exam and history is consistent with asthma exacerbation. Discussed suspect this is possibly allergy induced. Patient is leaving to go camping this week, states symptoms are sometimes flared up by campfire smoke as well. Discussed we will treat with 9-day prednisone taper. Finish entire course. Continue albuterol inhaler as needed. May use Robitussin or similar if needed. Discussed should avoid use of decongestant such as Sudafed given hypertension history. Follow-up with PCP if not gradually improving over the next 4 to 5 days, sooner if significantly worsening. Patient verbalized understanding of treatment plan. [facility] Other 11-30-2022 Evaluation note* Encounter Date Diagnosis Assessment Notes Treatment Notes Treatment Clinical Notes Feb, Asthma (ICD-10 - J45.909) Important to keep allergy and GERD symptoms under control to help prevent airway irritation. Feb, Reactive airway disease with wheezing (ICD-10 - J45.909) Call office if you develop cough/wheezing before next appointment. Will then begin ICS/LABA such as BREO or Symbicort. [facility] Other 10-09-2022 Evaluation note* Encounter Date Diagnosis Assessment Notes Treatment Notes Treatment Clinical Notes Jan, Moderate persistent asthma with exacerbation (ICD-10 - J45.41) recommend patient follow up with PCP since she is using rescue inhaler in evening and this is seconda flare up. She is interested in discussing seeing a specialist due to her symptoms. [facility] Other 07-01-2022 History general Narrative - Reported* Type Description Date Medical History HTN Medical History Arthritis Medical History ASTHMA OCTOBER 2021 Surgical History Lap Britta Hospitalization History See past surgical hx [facility] Other 07-01-2022 History general Narrative - Reported* Type Description Date Medical History HTN Medical History Arthritis Medical History ASTHMA OCTOBER 2021 Medical History Esophageal reflux Medical History schatzki ring Surgical History Lap Britta Surgical History EGD with dilitation Surgical History Colonoscopy Surgical History Colposcopy Hospitalization History See past surgical hx [facility] Other 07-01-2022 History general Narrative - Reported* Type Description Date Medical History HTN Medical History Arthritis Medical History ASTHMA OCTOBER 2021 Medical History Esophageal reflux Medical History schatzki ring Medical History reactive airway disease Surgical History Lap Britta Surgical History EGD with dilitation Surgical History Colonoscopy Surgical History Colposcopy Hospitalization History See past surgical hx Hospitalization History [facility] wheezing 09/2022 [facility] Other Evaluation + Plan note No data available for this section [facility] Future Appointments Appointment Date:03/02/2023 10:00:00 AM Scheduled Provider:Garett Elizondo Location:[facility] Appointment Type: Open Appointment Date:12/03/2023 09:30:00 AM Scheduled Provider: Location:[facility] Appointment Type:FM Medicare Wellness Subsequent [facility] assessment information available [facility] Other Evaluation note* Diagnosis Onset Date Resolution Status Acute pain of right shoulder acute Contusion of right shoulder acute UTI (urinary tract infection) noneactive [facility] Work Phone: Evaluation note* Diagnosis Onset Date Resolution Status Acute pain of right shoulder acute Contusion of right shoulder acute UTI (urinary tract infection) noneactive Urinary tract infection acut e [facility] Work Phone: Hospital Discharge instructions No data available for this section [facility] No data available for this section [facility] Advance Directives No Advanced Directives Records Found Advance Directive Response Recorded Date/ Time Advance Directives No December 8:08pm Summary Purpose Family History No Family History Records Found Relationship Condition Age at Onset Recorded Date/T laura father Family history of other condition Unknown Malignant neoplasm Unknown Unknown Not Specified Malignant neoplasm Unknown sister Malignant neoplasm Unknown Malignant neoplasm of breast Unknown Chief Complaint and Reason for Visit Chief Complaint Dysuria Chief Complaint NEW RT SHOULDER PAIN NX M25.511 Dysuria Dysuria Reason for Visit Acute pain of right shoulder Contusion of right shoulder UTI (urinary tract infection) Chief Complaint NEW RT SHOULDER PAIN NX M25.511 Dysuria R30.0 Possible UTI Dysuria Reason for Visit Acute pain of right shoulder Contusion of right shoulder UTI (urinary tract infection) Urinary tract infection Additional Source Comments Goals (unrecognized section and content) Goals may be documented in a n alternate sectionNo Information No data available for this sectionNo InformationNo InformationNo InformationNo InformationNo InformationNo InformationGoals may be documented in an alternate sectionNo InformationNo InformationNo InformationGoals may be documented in an alternate section No data available for this sectionNo InformationNo InformationNo InformationNo InformationNo InformationGoals may be documented in an alternate sectionGoals may be documented in an alternate section REASON FOR VISIT (unrecogniz ed section and content) SOB COUGHReferred by Dr. Zack claudio for AsthmaREFILLwheezing in chestpossible utiNo InformationREFILLpossible utipossible utiDYSURIAClinical6 mo f/u Asthma, RAD, GERDwheezing, reactive airwayPatient is here for a follow up for GERD. On Pantoprazole 40 mg daily. No complaintsRX Patient Care team informatio n (unrecognized section and content) Team Status: Inactive Member Role Status Dates MERT Le Attending Provider Active Team Status: Active Member Role Status Dates PHYSICIAN NO FAMILY Primary Care Provider Active Team Status: Inactive Member Role Status Dates MERT Le Attending Provider Active PHYSICIAN NO FAMILY Primary Care Provider Active Team Status: Inactive Member Role Status Dates PHYSICIAN NO FAMILY Primary Care Provider Active MERT Le Attending Provider Active Team Status: Active Member Role Status Dates Nawaf Gonzalez MD Primary Care Provider Active Team Status: Inactive Member Role Status Dates PHYSICIAN NO FAMILY Primary Care Provider Active Start: June 25, 2023 End: June 25, 2023 Lawrence Gaytan MD Attending Provider Active Star t: June 25, 2023 End: June 25, 2023 Team Status: Inactive Member Role Status Dates MERT Le Attending Provider Active S tart: July 30, 2023 End: July 30, 2023 Nawaf Gonzalez MD Primary Care Provider Active Start: July 30, 2023 End: July 30, 2023 Team Status: Inactive Member Role Status Dates Nawaf Gonzalez MD Primary Care Provider Active Start: August 20, 2023 End: August 20, 2023 Kalie French APRN Attending Provider Active Start: August 20, 2023 End: August 20, 2023 Team Status: Inactive Member Role Status Dates Kalie French APRN Attending Provider Active Start: August 20, 2023 End: August 20, 2023 INFORMATION SOURCE (unrecogn ized section and content) DATE CREATED AUTHOR 09/04/2022 [facility] DATE CREATED AUTHOR AUTHOR'S ORGANIZ ATION 08/27/2023 [facility] DATE CREATED AUTHOR AUTHOR'S ORGANIZ ATION 10/08/2023 [facility] DATE CREATED AUTHOR AUTHOR'S ORGANIZ ATION 10/13/[address] [facility] Special[facility] FOR RECORDS PERTAINING TO PATIENTS WHO ARE OR HAVE BEEN ENROLLED IN A CHEMICAL DEPENDENCY/SUBSTANCEABUSE PROGRAM, SOME INFORMATION MAY BE OMITTED. This clinical summary was aggregated from multiple sources. Caution should be exercised in using it in the provision of clinical care. This summary normalizes information from multiple sources, and as a consequence, information in this document may materially change the coding, format and clinical context of patient data. In addition, data may be omitted in some cases. CLINICAL DECISIONS SHOULD BE BASED ON THE PRIMARY CLINICAL RECORDS. [facility]. [phone] no warranty [phone] [id number] the accuracy [phone] completeness [phone] in [id number] [id number]
[2023-10-26 11:03] LABS: Bilirubin Urine NEGATIVE (NEGATIVE); Blood Urine NEGATIVE (NEGATIVE); Clarity Urine CLEAR (CLEAR); Color Urine DK. ORANGE (YELLOW); Glucose Urine UA 100 mg/dL (NEGATIVE); Ketones Urine NEGATIVE (NEGATIVE); Leukocyte Esterase Urine MODERATE (NEGATIVE); Nitrite Urine POSITIVE (NEGATIVE); Protein Urine TRACE mg/dL (NEG/TRACE)
[2023-10-26 11:04] LABS: Urine Microscopic Indicated YES
[2023-10-26 11:16] LABS: RBC Urine 0-2 #/HPF (0-2); WBC Urine 20-50 #/HPF (NONE SEEN)
[2023-10-26 11:17] LABS: Bacteria Urine MODERATE #/HPF (NONE SEEN); Cast Seen? NONE SEEN #/LPF (NONE SEEN); Crystals Seen? None Seen #/HPF (None Seen); Mucus Urine TRACE (NONE SEEN); Squamous Epithelial Cell Urine RARE #/LPF (NONE/RARE); Urine Culture Indicated YES
== END 2023-10-26 09:44 | disposition home or self-care (01) ==
LOC: LAB 09:45
PROVIDERS: Family Provider Optometrist; PCP Family Medicine
DX: N39.0 Urinary tract infection, site not specified (principal)
CPT/HCPCS: 81001; 87086

== ENCOUNTER 2023-11-15 21:41 | Emergency (ER) | payer MEDICARE, SELFPAY ==
--- OUTSIDE RECORDS SUMMARY | 2023-11-15 21:52 | XMS_ITS | CCD ---
Author Organization [facility] Care Team Providers Care Ground Crew Supervisor Name Role Phone GloriaFahadie Attending Provider [phone] ANDRES SIMMS Primary Care Physician Marie Galvan [...] Jarred Rendon Unavailable MERT Cortes Attending Provider Mary Cortes Unavailable NO FAMILY, PHYSICIAN Primary Care Provider Unava ilable Nawaf Gonzalez Primary Care Physician [phone] Kianna Blackwell Unavailable Astrid Sky Unavailable NO FAMILY, PHYSICIAN Primary Care Provider Unava ilable MD Lawrence Gaytan Attending Provider MERT Cortes Attending Provider MD Nawaf Gonzalez Primary Care Provider Kalie French Attending Unavailable aKlie French Admitting Unavailable Mary Cortes Admitting Unavailable [...] MACROCRYSTALS / Nitrofurantoin, Monohydrate Drug Allergy Unknown [facility] Other (1 source) Nitrofurantoin Drug Allergy [address] [place] [address] Repository (1 source) Nitrofurantoin; Translations: [Macrobid] Drug Allergy [facility] Repository Medications Current Medications Medication Drug Class(es) Dates Sig (Normalized) Sig (Original) [id number] 200 actuat albuterol 0.09 mg/actuat metered dose [...] tab(s), Oral, Daily, 90 tab(s), Refill(s) 1, [facility], 165, cm, 12/01/22 10:14:00 EDT, Height/Length [...] qPM, # 90 tab(s), Refills(s) 1, Pharmacy: [facility], 165, cm, 12/01/22 10:14:00 EDT, Height/Length [...] te Episodic/Chronic Other aftercare (1 source) 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; Translations: [OTH LONGTERM CURRENT DRUG THERAPY] Onset: 12-30-2021 Episodic Other lower respiratory disease (4 sources) Shortness of breath; Translations: [SHORTNESS OF BREATH] Onset: 12-26-2021 Episodic Other upper respiratory infections (1 source) Acute upper respiratory infection, unspecified; Translations: [ACUTE UP RESPIRATORY INFECTION UNS] Onset: 12-30-2021 Episodic Results Test Name Value Interpretation Reference Range Facil ity Consultation Noteon 10-06-19 24 Consultation Note [id number]#1.00TIFF Normal [facility] Laboratory - Chemistry and C hemistry - challengeon 08-20-2023 Bilirubin Ql (U) Negative [facility] Glucose (U) [Mass/Vol] Negative [facility] Ketones Ql (U) Negative [facility] pH (U) 7.0 [pH] [facility] Specific gravity (U) [Rel density] 1.025 [facility] Urobilinogen (U) [Mass/Vol] 0.2 mg/dL [facility] Laboratory - Specimen inform ationon 08-20-2023 Appearance (U) cloudy [facility] Color (U) yellow [facility] Laboratory - Urinalysison Leukocyte esterase Test strip Ql (U) moderate [facility] Nitrite Ql (U) Positive [facility] Protein Ql (U) trace [facility] No Panel Informationon 08-19 Urine Occult Blood [facility] Urine Cultureon 08-20-2023 Bacteria identified Cx Nom (U) ORGANISM: Escherichia coli (O:ESCCOL) [place] Count >100,000 Aerobic NINO Charge (NMIC56) SUSCEPTIBILITY [...] RESISTANT TO ALL B-LACTAM DRUGS. PERFORMED BY: [facility] [address] [place] [address] PATHOLOGIST COMBINATION MAN YADIEL Ojeda [facility] Comment on above: Performed By: #### CUU #### [facility] [address] Laboratory - Chemistry and C hemistry - challengeon 07-30-2023 Bilirubin Ql (U) Negative [facility] Glucose (U) [Mass/Vol] Negative [facility] Ketones Ql (U) Negative [facility] pH (U) 6.5 [pH] [facility] Specific gravity (U) [Rel density] 1.010 [facility] Urobilinogen (U) [Mass/Vol] 0.2 mg/dL [facility] Laboratory - Specimen inform ationon 07-30-2023 Appearance (U) clear [facility] Color (U) yellow [facility] Laboratory - Urinalysison Leukocyte esterase Test strip Ql (U) small [facility] Nitrite Ql (U) Positive [facility] Protein Ql (U) Negative [facility] No Panel Informationon 07-29 Urine Occult Blood large [facility] Urine Cultureon 07-30-2023 Bacteria identified Cx Nom (U) ORGANISM: Escherichia coli (O:ESCCOL) [place] Count >100,000 Aerobic NINO Charge (NMIC56) SUSCEPTIBILITY [...] RESISTANT TO ALL B-LACTAM DRUGS. PERFORMED BY: [place] [address] PATHOLOGIST COMBINATION MAN YADIEL STYLES M.D. Normal [facility] Comment on above: Performed By: #### CUU #### [address] Urine culture routineOrdered By: Mary Cortes on 07-30-2023 Bacteria identified Cx Nom (U) Escherichia coli [facility] XR shoulder RT min 2V*on XR shoulder RT min 2V* [place] [address] XRay Report Signed Patient: Kimberley Denise MR#: [id number] : 1955 Acct:[id number] Age/Sex: 68 / F ADM Date: 06/25/23 Loc: [facility] Room: Type: [facility] Attending Dr: Lawrence Gaytan MD Copies to: [...] Wally Moore M.D.06/25/2023 3:00 PM Dictation Location: [place] [address] Transcribed By: [facility] 06/25/23 1500 Dictated By: Wally Moore DO 06/25/23 1459 Signed By: 06/25/23 1500 Normal [facility] Consultation Noteon 04-22-19 Consultation Note [id number]#1.00TIFF Normal [facility] Consultation Noteon 04-08-20 Consultation Note [id number]#1.00TIFF Normal [facility] Pre-Visit Planningon 023 Pre-Visit Planning From: Ailin [...] BMI of 35.11 on 12/01/2022. The National Marcell of Health defines obesity as morbid if [...] feel free to contact me at extension [phone]. Thank you! RYLIE Sosa, RN, CCM, CCDS, CCDS-O From: Garett Elizondo To: Ailin NAVARRETE, Nataly; Sent: 03/04/2023 13:21:25 EST Subject: RE: Pre-Visit Planning Caller Name: KIMBERLEY DENISE; Caller Number: Karen , Rajiv class 3 obesity with hypertension Normal [address] [facility] Ambulatory Visit Summaryon 1 05-02-2022 Ambulatory Visit [...] Follow-Up Appointments 2023 9:30 AM EDT Where: [facility] Invalid Interpretation Code Fatigue, Print Label By Order Location\.br\ Thyroid Stimulating Hormone, Blood, Routine collect, 03/02/23, Order for future visit, Lab Collect, Screening for hyperlipidemia [facility] Medicine Office/Clini c Noteon 03-02-2023 [facility] Medicine Office/Clinic Note HPI Staff Kimberley [...] Oral, Daily, 90 tab(s), Refill(s) 1, [facility], 165, cm, 12/01/22 10:14:00 EDT, Height/Length Dosing, 95.6, kg, 12/01/22 10:14:00 EDT, Weight Dosing hydrochlorothiazide-losart an, 1 tab(s), Oral, Daily for 90 day(s), 90 tab(s), Refill(s) 3, [facility], 165, cm, 03/02/23 10:05:00 EST, Height/Length Dosing, 94.1, kg, 03/02/23 10:05:00 EST, Weight Dosing hydrochlorothiazide-losart an, 1 tab(s), Oral, Daily, 90 tab(s), Refill(s) 1, [facility], 165, cm, 12/01/22 10:14:00 EDT, Height/Length Dosing, 95.6, kg, 12/01/22 10:14:00 EDT, Weight Dosing montelukast, 10 mg = 1 tab(s), Oral, qPM, # 90 tab(s), Refills(s) 1, Pharmacy: [facility], 165, cm, 12/01/22 10:14:00 EDT, Height/Length [...] in lifeti (more content not included)... Normal [facility] Comment on above: Result Comment: Electronically Signed By : Garett Elizondo\.br\Date and Time Signed: 03/02/23 12:55 EST Consent for Treatmenton Consent for Treatment [id number]#1.00TIFF Normal [facility] MA Mamm Diag w/CAD if perf a [...] very important to your health. The current [employer] and National Comprehensive Cancer [...] Jacek Grier M.D. Transcribed by: MIKAL Technologist: [facility] Assessment: BI-RADS Category 2-Benign finding Recommendation: Normal interval follow-up Normal [facility] US Breast Unilateral Lt Comp leteon 02-25-2023 US Breast Unilateral Lt Complete Exam Date/Time: 02/25/2023 10:41 EST Reason for Exam: R92.8;Abnormal mammogram Report PLEASE REFER TO THE MAMMOGRAM REPORT. Ordering Provider: Garett Tillman FINAL REPORT Dictated: 02/25/2023 4:02 pm Jacek Grier M.D. Signed (Electronic Signature): 02/25/2023 4:02 pm Signed by: Jacek Grier M.D. Transcribed by: MIKAL Technologist: RON Normal [facility] Physician Orderon 02-24-2023 Physician Order [id number]#1.00TIFF Normal [facility] Physician Order [id number]#1.00TIFF Normal [facility] [place] Mamm Screen w/CAD if perf and [...] very important to your health. The current [employer] and National Comprehensive Cancer [...] Jacek Grier M.D. Transcribed by: MIKAL Technologist: [facility] Assessment: BI-RADS Category 0-Incomplete: Need additional imaging evaluation Recommendation: Additional projections Normal [facility] Urinalysis - AUTOMATEDon Appearance (U) cloudy [employer] Other Bilirubin Ql (U) Negative [employer] Other Color (U) orange [facility] Other Glucose Ql (U) 100 [employer] Other Hemoglobin Ql (U) large [employer] Other Ketones Ql (U) Negative [employer] Other Leukocyte esterase Test strip Ql (U) large [employer] Other Nitrite Ql (U) Positive [employer] Other pH (U) 6.0 [pH] [facility] Other Protein Ql (U) 100 [employer] Other Specific gravity (U) [Rel density] 1.020 [employer] Other Urobilinogen (U) [Mass/Vol] 1.0 mg/dL [facility] Other Urinalysis - AUTOMATED [employer] Other Urine Cultureon 02-18-2023 Bacteria identified Cx Nom (U) Reason for Exam Dysuria Urine Reason for Exam: Dysuria : Urine ORGANISM: Escherichia coli (O:ESCCOL) [place] Count >100,000 Aerobic NINO Charge (NMIC56) SUSCEPTIBILITY [...] RESISTANT TO ALL B-LACTAM DRUGS. PERFORMED BY: [place] [address] PATHOLOGIST COMBINATION MAN YADIEL STYLES M.D. Normal [facility] Comment on above: Performed By: #### CUU #### [address] Consent for Treatmenton 01-20 Consent for Treatment [id number]#1.00TIFF Normal [facility] Retail - Clinical Noteon Retail - Clinical Note [id number]#1.00TIFF Normal [facility] Urinalysis - AUTOMATEDon Appearance (U) cloudy [employer] Other Bilirubin Ql (U) Negative [employer] Other Color (U) yellow [employer] Other Glucose Ql (U) Negative [employer] Other Hemoglobin Ql (U) large [employer] Other Ketones Ql (U) Negative [employer] Other Leukocyte esterase Test strip Ql (U) small [employer] Other Nitrite Ql (U) Positive [employer] Other pH (U) 6.5 [pH] [employer] Other Protein Ql (U) 300 [employer] Other Specific gravity (U) [Rel density] 1.025 [employer] Other Urobilinogen (U) [Mass/Vol] 0.2 mg/dL [employer] Other Urinalysis - AUTOMATED [employer] Other Urine Cultureon 02-11-2023 Urine Culture >100,000 [employer] Other Urine Culture <16 Susceptible [employer] Other Urine Culture <8/4 Susceptible [employer] Other Urine Culture >16 Resistant [employer] Other Urine Culture <4 Susceptible [employer] Other Urine Culture <2 Susceptible [employer] Other Urine Culture <1 Susceptible [employer] Other Urine Culture <0.25 Susceptible [employer] Other Urine Culture <0.5 Susceptible [employer] Other Urine Culture <32 Susceptible [employer] Other Urine Culture >8 Resistant [employer] Other Urine Culture <0.5/9.5 Susceptible [employer] Other Bacteria identified Cx Nom (U) Reason for Exam Dysuria Urine ORGANISM: Escherichia coli (O:ESCCOL) [place] Count >100,000 Aerobic NINO Charge (NMIC56) SUSCEPTIBILITY [...] RESISTANT TO ALL B-LACTAM DRUGS. PERFORMED BY: [place] [address] PATHOLOGIST COMBINATION MAN YADIEL STYLES M.D. Normal [facility] Comment on above: Performed By: #### CUU #### [address] Urine culture routineOrdered By: Mary Cortes on 02-11-2023 Bacteria identified Cx Nom (U) Escherichia coli [facility] Consultation Noteon 02-11-20 Consultation Note [id number]#1.00TIFF Lynette Wheat [facility] Family Medicine Office/Clini c Noteon 12-02-2022 Family [...] of clutter to prevent tripping and/or falling. [place] Advance Directives reviewed, patient has copy at [...] repeat 2024. DEXA scan requested from [facility]. Mammograms are completed through patients OB-MORTGAGE MANAGER provider, Dr. Zaman Reviewed pain symptoms with [...] a (more content not included)... Normal [facility] Comment on above: Result Comment: Electronically Signed [...] night-lights. ? Place frequently used items in wfas-yw-luhay places. Lower the shelves around your home [...] the way. ? Do not use floor haitian or wax that makes floors slippery. If [...] include working with a physical therapist or green jobs trainer to improve your strength, balance, and endurance. Where to find more information ? Centers for Disease Control and Prevention, [place]: www.cdc.gov ? National Marcell on Aging: www.argentina.nih.gov Contact a health care [...] health ca (more content not included)... Normal [facility] Screenson 12-01-2022 Screens [id number]#[id number]:[id number] Normal [facility] Urinalysis - AUTOMATEDon Appearance (U) cloudy [employer] Other Bilirubin Ql (U) Negative [employer] Other Color (U) yellow [employer] Other Glucose Ql (U) Negative [employer] Other Hemoglobin Ql (U) Trace-intact [employer] Other Ketones Ql (U) Negative [employer] Other Leukocyte esterase Test strip Ql (U) small [employer] Other Nitrite Ql (U) Negative [employer] Other pH (U) 6.0 [pH] [facility] Other Protein Ql (U) Negative [employer] Other Specific gravity (U) [Rel density] 1.025 [facility] Other Urobilinogen (U) [Mass/Vol] 0.2 mg/dL [facility] Other Urinalysis - AUTOMATED [employer] Other US CAROTID ART BILon 05-17-2 023 [...] MIHAI MAI Date: 2022-09-03 14:32 Normal [facility] CBC AUTO DIFFon 07-02-2022 BASO # 0.0 103/ul Normal 0.0-0.1 [facility] [place] [facility] Comment on above: Performed By: #### CMP, HSTROPN, BNP ### # [facility] [address] [place] [address] [address] Ivett Scott Basophils/100 WBC (Bld) 0.6 % Normal 0.2-2.0 [facility] [place] [facility] Comment on above: Performed By: #### CMP, HSTROPN, BNP ### # [facility] [address] [place] [address] [address] Ivett Scott EO # 0.3 103/ul Normal 0.0-0.7 [facility] [place] [facility] Comment on above: Performed By: #### CMP, HSTROPN, BNP ### # [facility] [address] [place] [address] Dr. Ivett Scott Eosinophils/100 WBC (Bld) 4.1 % Normal 0.9-7.0 [facility] [place] [facility] Comment on above: Performed By: #### CMP, HSTROPN, BNP ### # [facility] [address] [place] [address] Dr. Ivett Scott Erythrocyte distribution width (RBC) [Ratio] 13.1 % Normal 11.0-15.0 [facility] [place] [facility] Comment on above: Performed By: #### CMP, HSTROPN, BNP ### # [facility] [address] [place] [address] Dr. Ivett Scott Hematocrit (Bld) [Volume fraction] 40.9 % Normal 36.0-48.0 [facility] [place] [facility] Comment on above: Performed By: #### CMP, HSTROPN, BNP ### # [facility] [address] [place] [address] Dr. Ivett Scott Hemoglobin (Bld) [Mass/Vol] 13.4 g/dL Normal 12.0-16.0 [facility] Comment on above: Performed By: #### CMP, HSTROPN, BNP ### # [facility] [address] [place] [address] Dr. Ivett Scott IG # 0.02 10e3/ul Normal 0.00-0.03 [facility] Comment on above: Performed By: #### CMP, HSTROPN, BNP ### # [facility] [address] [place] [address] Dr. Ivett Scott IG % 0.3 % Normal 0.0-0.5 [facility] Comment on above: Performed By: #### CMP, HSTROPN, BNP ### # [facility] [address] [place] [address] Dr. Ivett Scott LYMPH # 2.0 103/ul Normal 1.2-3.8 [facility] [place] [facility] Comment on above: Performed By: #### CMP, HSTROPN, BNP ### # [facility] [address] [place] [address] [address] Ivett Scott Lymphocytes/100 WBC (Bld) 31.6 % Normal 20.5-60.0 [facility] Comment on above: Performed By: #### CMP, HSTROPN, BNP ### # [facility] [address] [place] [address] [address] Ivett Scott MANUAL DIFF REQ NO Normal [facility] Comment on above: Performed By: #### CMP, HSTROPN, BNP ### # [facility] [address] [place] [address] Dr. Ivett Scott MCH (RBC) [Entitic mass] 29.5 pg Normal 26.7-34.0 [facility] Comment on above: Performed By: #### CMP, HSTROPN, BNP ### # [facility] [address] [place] [address] Dr. Ivett Scott MCHC (RBC) [Mass/Vol] 32.8 g/dL Normal 29.9-35.2 [facility] Comment on above: Performed By: #### CMP, HSTROPN, BNP ### # [facility] [address] [place] [address] Dr. Ivett Scott MCV (RBC) [Entitic vol] 90.1 fL Normal 81.0-99.0 [facility] Comment on above: Performed By: #### CMP, HSTROPN, BNP ### # [facility] [address] [place] [address] Dr. Ivett Scott MONO # 0.5 103/ul Normal 0.3-0.8 [facility] Comment on above: Performed By: #### CMP, HSTROPN, BNP ### # [facility] [address] [place] [address] Dr. Ivett Scott Monocytes/100 WBC (Bld) 8.0 % Normal 1.7-12.0 [facility] Comment on above: Performed By: #### CMP, HSTROPN, BNP ### # [facility] [address] [place] [address] Dr. Ivett Scott NEUT # 3.5 103/ul Normal 1.4-6.5 [facility] Comment on above: Performed By: #### CMP, HSTROPN, BNP ### # [facility] [address] [place] [address] [address] Ivett Scott Neutrophils/100 WBC (Bld) 55.4 % Normal 43.0-75.0 [facility] [place] [facility] Comment on above: Performed By: #### CMP, HSTROPN, BNP ### # [facility] [address] [place] [address] Dr. Ivett Scott Platelet mean volume (Bld) [Entitic vol] 9.7 fL Normal 9.5-13.5 [facility] [place] [facility] Comment on above: Performed By: #### CMP, HSTROPN, BNP ### # [facility] [address] [place] [address] Dr. Ivett Scott PLT 170 103/ul Normal 150-450 [facility] [place] [facility] Comment on above: Performed By: #### CMP, HSTROPN, BNP ### # [facility] [address] [place] [address] Dr. Ivett Scott RBC 4.54 106/ul Normal 4.20-5.40 [facility] Comment on above: Performed By: #### CMP, HSTROPN, BNP ### # [facility] [address] [place] [address] Dr. Ivett Scott WBC 6.4 103/ul Normal 4.0-11.0 [facility] [place] [facility] Comment on above: Performed By: #### CMP, HSTROPN, BNP ### # [facility] [address] [place] [address] Dr. Ivett Scott GLYCOHEMOGLOBIN A1Con 2022 ADA RECOMMENDATION SEE BELOW Normal [facility] Comment on above: Result Comment: ADA RECOMMENDED LIMIT 4. 0 - 6.0 ADA THERAPEUTIC TARGET < 7.0 ACTION SUGGESTED > 7.0 Performed By: #### A 1C #### [facility] [address] [place] [address] Dr. Ivett Scott Glucose [Mass/Vol] 111 mg/dL Normal [facility] Comment on above: Performed By: #### A1C #### [facility] [address] [address] [address] Ivett Scott HbA1c (Bld) [Mass fraction] 5.5 % Normal 4.5-6.2 [facility] Comment on above: Performed By: #### A1C #### [facility] [address] [place] [address] Dr. Ivett Scott PROF CHEM 8 (BAS METB)on Anion gap [Moles/Vol] 13.4 mmol/L Normal [facility] [place] [facility] Comment on above: Performed By: #### BMP #### [facility] [address] [address] [address] Ivett Scott Calcium [Mass/Vol] 9.1 mg/dL Normal 8.5-10.1 [facility] [place] [facility] Comment on above: Performed By: #### BMP #### [facility] [address] [place] [address] Dr. Ivett Scott Chloride [Moles/Vol] 106 mmol/L Normal 98-107 [facility] Comment on above: Performed By: #### BMP #### [facility] [address] [address] [address] Ivett Scott CO2 [Moles/Vol] 27.5 mmol/L Normal 21.0-32.0 [facility] Comment on above: Performed By: #### BMP #### [facility] [address] [place] [address] Dr. Ivett Scott Creatinine [Mass/Vol] 0.48 mg/dL Critically low 0.55-1.02 [facility] Comment on above: Performed By: #### BMP #### [facility] [address] [place] [address] Dr. Ivett Scott EGFR-AF KUWAITI >60 Normal >=60 [facility] Comment on above: Performed By: #### BMP #### [facility] [address] [place] [address] Dr. Ivett Scott EGFR-NON AF [place] >60 Normal >=60 [facility] Comment on above: Performed By: #### BMP #### [facility] [address] [place] [address] Dr. Ivett Scott Glucose [Mass/Vol] 106 mg/dL Normal 74-106 [facility] [place] [facility] Comment on above: Performed By: #### BMP #### [facility] [address] [place] [address] Dr. Ivett Scott Potassium [Moles/Vol] 3.9 mmol/L Normal 3.5-5.1 [facility] [place] [facility] Comment on above: Performed By: #### BMP #### [facility] [address] [place] [address] Dr. Ivett Scott Sodium [Moles/Vol] 143 mmol/L Normal 136-145 [facility] [place] [facility] Comment on above: Performed By: #### BMP #### [facility] [address] [place] [address] Dr. Ivett Scott Urea nitrogen [Mass/Vol] 12.0 mg/dL Normal 7.0-18.0 [facility] [place] [facility] Comment on above: Performed By: #### BMP #### [facility] [address] [place] [address] Dr. Ivett Scott Urea nitrogen/Creatin ine [Mass ratio] 25.0 mg/mg Normal [facility] [place] [facility] Comment on above: Performed By: #### BMP #### [facility] [address] [place] [address] Dr. Ivett Scott CBC AUTO DIFFon 02-24-2022 BASO # 0.0 103/ul Normal 0.0-0.1 [facility] [place] [facility] Comment on above: Performed By: #### CBC #### [facility] [address] [place] [address] Dr. Ivett Scott Basophils/100 WBC (Bld) 0.6 % Normal 0.2-2.0 [facility] [place] [facility] Comment on above: Performed By: #### CBC #### [facility] [address] [place] [address] Dr. Ivett Scott EO # 0.2 103/ul Normal 0.0-0.7 [facility] [place] [facility] Comment on above: Performed By: #### CBC #### [facility] [address] [place] [address] Dr. Ivett Scott Eosinophils/100 WBC (Bld) 3.1 % Normal 0.9-7.0 [facility] Comment on above: Performed By: #### CBC #### [facility] [address] [place] [address] Dr. Ivett Scott Erythrocyte distribution width (RBC) [Ratio] 13.2 % Normal 11.0-15.0 [facility] Comment on above: Performed By: #### CBC #### [facility] [address] [place] [address] Dr. Ivett Scott Hematocrit (Bld) [Volume fraction] 40.2 % Normal 36.0-48.0 [facility] Comment on above: Performed By: #### CBC #### [facility] [address] [place] [address] Dr. Ivett Scott Hemoglobin (Bld) [Mass/Vol] 13.2 g/dL Normal 12.0-16.0 [facility] Comment on above: Performed By: #### CBC #### [facility] [address] [place] [address] Dr. Ivett Scott IG # 0.01 10e3/ul Normal 0.00-0.03 [facility] Comment on above: Performed By: #### CBC #### [facility] [address] [place] [address] Dr. Ivett Scott IG % 0.2 % Normal 0.0-0.5 [facility] Comment on above: Performed By: #### CBC #### [facility] [address] [place] [address] Dr. Ivett Scott LYMPH # 1.7 103/ul Normal 1.2-3.8 [facility] Comment on above: Performed By: #### CBC #### [facility] [address] [place] [address] Dr. Ivett Scott Lymphocytes/100 WBC (Bld) 33.6 % Normal 20.5-60.0 [facility] Comment on above: Performed By: #### CBC #### [facility] [address] [place] [address] Dr. Ivett Scott MANUAL DIFF REQ NO Normal [facility] Comment on above: Performed By: #### CBC #### [facility] [address] [address] [address] Ivett Scott MCH (RBC) [Entitic mass] 29.5 pg Normal 26.7-34.0 [facility] Comment on above: Performed By: #### CBC #### [facility] [address] [place] [address] Dr. Ivett Scott MCHC (RBC) [Mass/Vol] 32.8 g/dL Normal 29.9-35.2 [facility] Comment on above: Performed By: #### CBC #### [facility] [address] [place] [address] Dr. Ivett Scott MCV (RBC) [Entitic vol] 89.9 fL Normal 81.0-99.0 [facility] Comment on above: Performed By: #### CBC #### [facility] [address] [place] [address] Dr. Ivett Scott MONO # 0.4 103/ul Normal 0.3-0.8 [facility] Comment on above: Performed By: #### CBC #### [facility] [address] [place] [address] Dr. Ivett Scott Monocytes/100 WBC (Bld) 7.8 % Normal 1.7-12.0 [facility] Comment on above: Performed By: #### CBC #### [facility] [address] [place] [address] Dr. Ivett Scott NEUT # 2.8 103/ul Normal 1.4-6.5 [facility] Comment on above: Performed By: #### CBC #### [facility] [address] [place] [address] Dr. Ivett Scott Neutrophils/100 WBC (Bld) 54.7 % Normal 43.0-75.0 [facility] Comment on above: Performed By: #### CBC #### [facility] [address] [place] [address] Dr. Ivett Scott Platelet mean volume (Bld) [Entitic vol] 9.9 fL Normal 9.5-13.5 [facility] Comment on above: Performed By: #### CBC #### [facility] [address] [address] [address] Ivett Scott PLT 191 103/ul Normal 150-450 [facility] Comment on above: Performed By: #### CBC #### [facility] [address] [address] [address] Ivett Scott RBC 4.47 106/ul Normal 4.20-5.40 [facility] Comment on above: Performed By: #### CBC #### [facility] [address] [address] [address] Ivett Scott WBC 5.2 103/ul Normal 4.0-11.0 [facility] Comment on above: Performed By: #### CBC #### [facility] [address] [place] [address] Dr. Ivett Scott LIPID PROFILEon 02-24-2022 CHOL-HDL RATIO NORM SEE BELOW Normal [facility] Comment on above: Result Comment: 3.3 - 4.4 LOW RISK 4.4 - 7.1 AVERAGE RISK 7.1 - 11.0 MODERATE RISK >11.0 HIGH RISK Performed By: #### C MP, LIPID #### [facility] [address] [place] [address] Dr. Ivett Scott Cholesterol [Mass/Vol] 231 mg/dL Critically high <=200 [facility] Comment on above: Performed By: #### CMP, LIPID #### [facility] [address] [place] [address] Dr. Ivett Scott Cholesterol in HDL [Mass/Vol] 61 mg/dL Critically high 40-60 [facility] Comment on above: Performed By: #### CMP, LIPID #### [facility] [address] [place] [address] Dr. Ivett Scott Cholesterol in LDL [Mass/Vol] 140.0 mg/dL Normal [facility] Comment on above: Performed By: #### CMP, LIPID #### [facility] [address] [address] [address] Ivett Scott Cholesterol.tota l/Cholesterol in HDL [Mass ratio] 3.8 {ratio} Normal [facility] Comment on above: Performed By: #### CMP, LIPID #### [facility] [address] [address] [address] Ivett Scott HDL NORMAL > or = 60 mg/dl - LO W CARDIOVASCULAR RISK <40 mg/dl - HIGH CARDIOVASCULAR RISK Normal [facility] Comment on above: Performed By: #### CMP, LIPID #### [facility] [address] [address] [address] Ivett Scott LDL CALC NORMAL SEE BELOW Normal [facility] Comment on above: Result Comment: <100 mg/dl OPTIMAL 100 - 129 mg/dl NEAR OR ABOVE OPTIMAL 130 - 159 mg/dl BORDERLINE HIGH 160 - 189 mg/dl HIGH >190 mg/dl VERY HIGH Performed By: #### C MP, LIPID #### [facility] [address] [address] [address] Ivett Scott Triglyceride [Mass/Vol] 150 mg/dL Normal <=150 [facility] Comment on above: Performed By: #### CMP, LIPID #### [facility] [address] [address] [address] Ivett Scott VLDL CALC 30.0 mg/dL Normal [facility] Comment on above: Performed By: #### CMP, LIPID #### [facility] [address] [place] [address] Dr. Ivett Scott PROF 14(COMP METB)on 022 Albumin [Mass/Vol] 3.4 g/dL Normal 3.4-5.0 [facility] Comment on above: Performed By: #### CMP, HSTROPN, BNP ### # [facility] [address] [place] [address] Dr. Ivett Scott Albumin/Globulin [Mass ratio] 0.9 {ratio} Normal [facility] Comment on above: Performed By: #### CMP, HSTROPN, BNP ### # [facility] [address] [place] [address] Dr. Ivett Scott ALP [Catalytic activity/Vol] 56 U/L Normal 46-116 [facility] Comment on above: Performed By: #### CMP, HSTROPN, BNP ### # [facility] [address] [place], [place] [id number] Dr. Ivett Scott ALT [Catalytic activity/Vol] 21 U/L Normal 14-59 [facility] Comment on above: Performed By: #### CMP, HSTROPN, BNP ### # [facility] [address] [place] [address] Dr. Ivett Scott Anion gap [Moles/Vol] 11.5 mmol/L Normal [facility] Comment on above: Performed By: #### CMP, HSTROPN, BNP ### # [facility] [address] [place] [address] Dr. Ivett Scott AST [Catalytic activity/Vol] 22 U/L Normal 15-37 [facility] Comment on above: Performed By: #### CMP, HSTROPN, BNP ### # [facility] [address] [place] [address] Dr. Ivett Scott Bilirubin [Mass/Vol] 0.5 mg/dL Normal 0.2-1.0 [facility] Comment on above: Performed By: #### CMP, HSTROPN, BNP ### # [facility] [address] [place] [address] Dr. Ivett Scott Calcium [Mass/Vol] 8.8 mg/dL Normal 8.5-10.1 [facility] Comment on above: Performed By: #### CMP, HSTROPN, BNP ### # [facility] [address] [place] [address] Dr. Ivett Scott Chloride [Moles/Vol] 104 mmol/L Normal 98-107 [facility] Comment on above: Performed By: #### CMP, HSTROPN, BNP ### # [facility] [address] [place] [address] Dr. Ivett Scott CO2 [Moles/Vol] 26.3 mmol/L Normal 21.0-32.0 [facility] Comment on above: Performed By: #### CMP, HSTROPN, BNP ### # [facility] [address] [place] [address] Dr. Ivett Scott Creatinine [Mass/Vol] 0.57 mg/dL Normal 0.55-1.02 [facility] Comment on above: Performed By: #### CMP, HSTROPN, BNP ### # [facility] [address] [address] [address] Ivett Scott EGFR-AF [place]I >60 Normal >=60 [facility] Comment on above: Performed By: #### CMP, HSTROPN, BNP ### # [facility] [address] [address] [address] Ivett Scott EGFR-NON AF [place] >60 Normal >=60 [facility] Comment on above: Performed By: #### CMP, HSTROPN, BNP ### # [facility] [address] [address] [address] Ivett Scott Globulin (S) [Mass/Vol] 3.6 g/dL Normal [facility] Comment on above: Performed By: #### CMP, HSTROPN, BNP ### # [facility] [address] [place] [address] Dr. Ivett Scott Glucose [Mass/Vol] 98 mg/dL Normal 74-106 [facility] Comment on above: Performed By: #### CMP, HSTROPN, BNP ### # [facility] [address] [address] [address] Ivett Scott Potassium [Moles/Vol] 3.8 mmol/L Normal 3.5-5.1 [facility] Comment on above: Performed By: #### CMP, HSTROPN, BNP ### # [facility] [address] [address] [address] Ivett Scott Protein [Mass/Vol] 7.0 g/dL Normal 6.4-8.2 [facility] Comment on above: Performed By: #### CMP, HSTROPN, BNP ### # [facility] [address] [address] [address] Ivett Scott Sodium [Moles/Vol] 138 mmol/L Normal 136-145 [facility] Comment on above: Performed By: #### CMP, HSTROPN, BNP ### # [facility] [address] [address] [address] Ivett Scott Urea nitrogen [Mass/Vol] 12.0 mg/dL Normal 7.0-18.0 [facility] Comment on above: Performed By: #### ADAM MITTAL, BNP ### # [facility] [address] [place] [address] Dr. Ivett Scott Urea nitrogen/Creatin ine [Mass ratio] 21.1 mg/mg Normal [facility] Comment on above: Performed By: #### ADAM MITTAL, BNP ### # [facility] [address] [place] [address] Dr. Ivett Scott CULTURE URINEon 01-17-2022 CULTURE [...] F Trimethoprim/Sulfamethoxaz ole <=20 S F Normal [facility] Comment on above: Performed By: #### ADAM MITTAL, BNP ### # [facility] [address] [place] [address] Dr. Ivett Scott UA RANDOMon 01-14-2022 Bilirubin Ql (U) Negative Normal NEGATIVE [facility] Comment on above: Performed By: #### UA #### [facility] [address] [place] [address] Dr. Ivett Scott Clarity (U) CLOUDY Abnormal CLEAR [facility] Comment on above: Performed By: #### UA #### [facility] [address] [place] [address] Dr. Ivett Scott Color (U) LT. YELLOW Normal YELLOW [facility] Comment on above: Performed By: #### UA #### [facility] [address] [place] [address] Dr. Ivett Scott Glucose Ql (U) Negative Normal NEGATIVE [facility] Comment on above: Performed By: #### UA #### [facility] [address] [place] [address] Dr. Ivett Scott Hemoglobin Ql (U) LARGE Abnormal NEGATIVE [facility] Comment on above: Performed By: #### UA #### [facility] [address] [place] [address] Dr. Ivett Scott Ketones Ql (U) TRACE Abnormal NEGATIVE [facility] Comment on above: Performed By: #### UA #### [facility] [address] [place] [address] Dr. Ivett Scott LEUKOCYTES MODERATE Abnormal NEGATIVE [facility] Comment on above: Performed By: #### UA #### [facility] [address] [place] [address] Dr. Ivett Scott Nitrite Ql (U) Positive Abnormal NEGATIVE [facility] Comment on above: Performed By: #### UA #### [facility] [address] [place] [address] Dr. Ivett Scott pH (U) 6.5 [pH] Normal 5-9 [facility] Comment on above: Performed By: #### UA #### [facility] [address] [place] [address] Dr. Ivett Scott SPEC GRAVITY 1.020 Normal 1.005-<=1.025 [facility] Comment on above: Performed By: #### UA #### [facility] [address] [place] [address] Dr. Ivett Scott UA PROTEIN 100 mg/dl Abnormal NEGATIVE/ TRACE [facility] Comment on above: Performed By: #### UA #### [facility] [address] [place] [address] Dr. Ivett Scott Urobilinogen Qn (U) 0.2 {Mireya'U}/dL Normal 0.2 - 1.0 [facility] Comment on above: Performed By: #### UA #### [facility] [address] [place] [address] Dr. Ivett Scott BNPon 12-26-2021 Natriuretic peptide B (Bld) [Mass/Vol] 185.0 pg/mL Normal <=900.0 [facility] Comment on above: Performed By: #### CMP, HSTROPN, BNP ### # [facility] [address] [place] [address] Dr. Ivett Scott CBC AUTO DIFFon 12-26-2021 BASO # 0.0 103/ul Normal 0.0-0.1 [facility] Comment on above: Performed By: #### CBC #### [facility] [address] [place] [address] Dr. Ivett Scott Basophils/100 WBC (Bld) 0.4 % Normal 0.2-2.0 [facility] Comment on above: Performed By: #### CBC #### [facility] [address] [place] [address] Dr. Ivett Scott EO # 0.0 103/ul Normal 0.0-0.7 [facility] Comment on above: Performed By: #### CBC #### [facility] [address] [place] [address] Dr. Ivett Scott Eosinophils/100 WBC (Bld) 0.0 % Critically low 0.9-7.0 [facility] Comment on above: Performed By: #### CBC #### [facility] [address] [place] [address] Dr. Ivett Scott Erythrocyte distribution width (RBC) [Ratio] 13.1 % Normal 11.0-15.0 [facility] Comment on above: Performed By: #### CBC #### [facility] [address] [place] [address] Dr. Ivett Scott Hematocrit (Bld) [Volume fraction] 41.0 % Normal 36.0-48.0 [facility] Comment on above: Performed By: #### CBC #### [facility] [address] [place] [address] Dr. Ivett Scott Hemoglobin (Bld) [Mass/Vol] 13.5 g/dL Normal 12.0-16.0 [facility] Comment on above: Performed By: #### CBC #### [facility] [address] [place] [address] Dr. Ivett Scott IG # 0.04 10e3/ul Critically high 0.00-0.03 [facility] Comment on above: Performed By: #### CBC #### [facility] [address] [place] [address] Dr. Ivett Scott IG % 0.6 % Critically high 0.0-0.5 [facility] Comment on above: Performed By: #### CBC #### [facility] [address] [place] [address] Dr. Ivett Scott LYMPH # 0.9 103/ul Critically low 1.2-3.8 [facility] Comment on above: Performed By: #### CBC #### [facility] [address] [place] [address] Dr. Ivett Scott Lymphocytes/100 WBC (Bld) 13.0 % Critically low 20.5-60.0 [facility] Comment on above: Performed By: #### CBC #### [facility] [address] [place] [address] Dr. Ivett Scott MANUAL DIFF REQ NO Normal [facility] Comment on above: Performed By: #### CBC #### [facility] [address] [place] [address] Dr. Ivett Scott MCH (RBC) [Entitic mass] 30.1 pg Normal 26.7-34.0 [facility] Comment on above: Performed By: #### CBC #### [facility] [address] [place] [address] Dr. Ivett Scott MCHC (RBC) [Mass/Vol] 32.9 g/dL Normal 29.9-35.2 [facility] Comment on above: Performed By: #### CBC #### [facility] [address] [place] [address] Dr. Ivett Scott MCV (RBC) [Entitic vol] 91.3 fL Normal 81.0-99.0 [facility] Comment on above: Performed By: #### CBC #### [facility] [address] [place] [address] Dr. Ivett Scott MONO # 0.2 103/ul Critically low 0.3-0.8 [facility] Comment on above: Performed By: #### CBC #### [facility] [address] [place] [address] Dr. Ivett Scott Monocytes/100 WBC (Bld) 3.0 % Normal 1.7-12.0 [facility] Comment on above: Performed By: #### CBC #### [facility] [address] [place] [address] Dr. Ivett Scott NEUT # 5.8 103/ul Normal 1.4-6.5 [facility] Comment on above: Performed By: #### CBC #### [facility] [address] [place] [address] Dr. Ivett Scott Neutrophils/100 WBC (Bld) 83.0 % Critically high 43.0-75.0 [facility] Comment on above: Performed By: #### CBC #### [facility] [address] [place] [address] Dr. Ivett Scott Platelet mean volume (Bld) [Entitic vol] 9.7 fL Normal 9.5-13.5 [facility] Comment on above: Performed By: #### CBC #### [facility] [address] [place] [address] Dr. Ivett Scott PLT 165 103/ul Normal 150-450 [facility] Comment on above: Performed By: #### CBC #### [facility] [address] [place] [address] Dr. Ivett Scott RBC 4.49 106/ul Normal 4.20-5.40 [facility] Comment on above: Performed By: #### CBC #### [facility] [address] [place] [address] Dr. Ivett Scott WBC 7.0 103/ul Normal 4.0-11.0 [facility] Comment on above: Performed By: #### CBC #### [facility] [address] [place] [address] Dr. Ivett Scott [facility]on SARS-CoV-2 (COVID-19) RNA LJ+probe Ql (Unsp spec) Not detected Normal NOT DETECTED [facility] Comment on above: Result Comment: When diagnostic [...] for this test is supported by the [place] of Health and Human Service's declaration that [...] By: #### C MP, HSTROPN, BNP #### [facility] [address] [place] [address] Dr. Ivett Scott PROF 14(COMP METB)on 022 Albumin [Mass/Vol] 3.6 g/dL Normal 3.4-5.0 [facility] Comment on above: Performed By: #### CMP, HSTROPN, BNP ### # [facility] [address] [place] [address] Dr. Ivett Scott Albumin/Globulin [Mass ratio] 1.0 {ratio} Normal [facility] Comment on above: Performed By: #### CMP, HSTROPN, BNP ### # [facility] [address] [place] [address] Dr. Ivett Scott ALP [Catalytic activity/Vol] 56 U/L Normal 46-116 [facility] Comment on above: Performed By: #### CMP, HSTROPN, BNP ### # [facility] [address] [place] [address] Dr. Ivett Scott ALT [Catalytic activity/Vol] 46 U/L Normal 14-59 [facility] Comment on above: Performed By: #### CMP, HSTROPN, BNP ### # [facility] [address] [address] [address] Ivett Scott Anion gap [Moles/Vol] 12.1 mmol/L Normal [facility] Comment on above: Performed By: #### CMP, HSTROPN, BNP ### # [facility] [address] [address] [address] Ivett Scott AST [Catalytic activity/Vol] 30 U/L Normal 15-37 [facility] Comment on above: Performed By: #### CMP, HSTROPN, BNP ### # [facility] [address] [address] [address] Ivett Scott Bilirubin [Mass/Vol] 0.4 mg/dL Normal 0.2-1.0 [facility] Comment on above: Performed By: #### CMP, HSTROPN, BNP ### # [facility] [address] [address] [address] Ivett Scott Calcium [Mass/Vol] 8.8 mg/dL Normal 8.5-10.1 [facility] Comment on above: Performed By: #### CMP, HSTROPN, BNP ### # [facility] [address] [address] [address] Ivett Scott Chloride [Moles/Vol] 105 mmol/L Normal 98-107 [facility] Comment on above: Performed By: #### CMP, HSTROPN, BNP ### # [facility] [address] [address] [address] Ivett Scott CO2 [Moles/Vol] 26.5 mmol/L Normal 21.0-32.0 [facility] Comment on above: Performed By: #### CMP, HSTROPN, BNP ### # [facility] [address] [address] [address] Ivett Scott Creatinine [Mass/Vol] 0.68 mg/dL Normal 0.55-1.02 [facility] Comment on above: Performed By: #### CMP, HSTROPN, BNP ### # [facility] [address] [address] [address] Ivett Scott EGFR-AF [place] >60 Normal >=60 [facility] Comment on above: Performed By: #### CMP, HSTROPN, BNP ### # [facility] [address] [address] [address] Ivett Scott EGFR-NON AF [place] >60 Normal >=60 [facility] Comment on above: Performed By: #### CMP, HSTROPN, BNP ### # [facility] [address] [address] [address] Ivett Scott Globulin (S) [Mass/Vol] 3.7 g/dL Normal [facility] Comment on above: Performed By: #### CMP, HSTROPN, BNP ### # [facility] [address] [address] [address] Ivett Scott Glucose [Mass/Vol] 155 mg/dL Critically high 74-106 [facility] Comment on above: Performed By: #### CMP, HSTROPN, BNP ### # [facility] [address] [place] [address] Dr. Ivett Scott Potassium [Moles/Vol] 3.6 mmol/L Normal 3.5-5.1 [facility] Comment on above: Performed By: #### CMP, HSTROPN, BNP ### # [facility] [address] [place] [address] Dr. Ivett Scott Protein [Mass/Vol] 7.3 g/dL Normal 6.4-8.2 [facility] Comment on above: Performed By: #### CMP, HSTROPN, BNP ### # [facility] [address] [address] [address] Ivett Scott Sodium [Moles/Vol] 140 mmol/L Normal 136-145 [facility] Comment on above: Performed By: #### CMP, HSTROPN, BNP ### # [facility] [address] [place] [address] Dr. Ivett Scott Urea nitrogen [Mass/Vol] 12.0 mg/dL Normal 7.0-18.0 [facility] Comment on above: Performed By: #### CMP, HSTROPN, BNP ### # [facility] [address] [place] [address] Dr. Ivett Scott Urea nitrogen/Creatin ine [Mass ratio] 17.6 mg/mg Normal [facility] Comment on above: Performed By: #### CMP, HSTROPN, BNP ### # [facility] [address] [place] [address] Dr. Ivett Scott PROTIMEon 12-26-2021 INR Coag (PPP) [Relative time] 0.95 {INR} Normal [facility] Comment on above: Performed By: #### CMP, HSTROPN, BNP ### # [facility] [address] [place] [address] Dr. Ivett Scott INR GUIDELINES SEE BELOW Normal [facility] Comment on above: Result Comment: DESIRED INR: 2.0 - 3.0 C ONDITIONS NOT LISTED BELOW 2.5 - 3.5 FOR PROSTHETIC HEART VALVE REPLACEMENT 2.5 - 3.5 RECURRENT THROMBOSIS Performed By: #### C MP, HSTROPN, BNP #### [facility] [address] [place] [address] Dr. Ivett Scott PT Coag (PPP) [Time] 10.3 s Normal 9.0-11.6 [facility] Comment on above: Performed By: #### CMP, HSTROPN, BNP ### # [facility] [address] [place] [address] Dr. Ivett Scott PTTon 12-26-2021 aPTT Coag (Bld) [Time] 26.7 s Normal 22.3-36.2 [facility] Comment on above: Performed By: #### CMP, HSTROPN, BNP ### # [facility] [address] [place] [address] Dr. Ivett Scott TROPONIN, HIGH SENSITIVITYon 12-26-2021 HSTROP 5.2 pg/mL Normal 4.0-51.3 [facility] Comment on above: Result Comment: CUT-OFF POINTS HAVE BEEN ESTABLISHED BASED ON THE FOURTH UNIVERSAL DEFINITIONS OF MYOCARDIAL INFARCTION. THE UPPER REFERENCE LIMIT (URL) OF TROPONIN, DEFINED THE 99TH PERCENTILE OF cTnI DISTRIBUTION IN A REFERENCE POPULATION, HAS BEEN CONFIRMED THE DECISION THRESHOLD FOR OK DIAGNOSIS. Performed By: #### C MP, HSTROPN, BNP #### [facility] [address] [place], [place] [address] Dr. Ivett Scott XR CHEST 1 Von [...] MIHAI MAI Date: 2021-12-26 14:13 Normal [facility] CULTURE URINEon 12-13-2021 CULTURE URINE Culture Observations : LIGHT GROWTH OF MIXED GENITAL KARTHIK. NO POTENTIAL PATHOGENS SEEN. Normal [facility] Comment on above: Performed By: #### CMP, HSTROPN, BNP ### # [facility] [address] [place] [address] [address] Ivett Scott HEMOGLOBINon 11-05-2021 Hemoglobin (Bld) [Mass/Vol] 13.0 g/dL Normal 12.0-16.0 [facility] Comment on above: Performed By: #### HGB #### [facility] [address] [place] [address] Dr. Ivett Scott Vital Signs Date Time Vital Sign Value Performing Clinician Facility 08-20-2023 14:20040 Body height 167.64 cm PHYSICIAN NO [facility] 08-20-2023 14:20-040 Body mass index (BMI) [Ratio] 33.6 kg/m2 PHYSICIAN NO [facility] 08-20-2023 14:20-040 Body temperature 98.1 [degF] PHYSICIAN NO [facility] 08-20-2023 14:20-040 Body weight 94.51 kg PHYSICIAN NO [facility] 08-20-2023 14:20-0400 Heart rate 91 /min PHYSICIAN NO [facility] 08-20-2023 14:20-0400 Respiratory rate 18 /min PHYSICIAN NO [facility] 08-20-2023 14:20-0400 SaO2% (BldA) [Mass fraction] 98 % PHYSICIAN NO [facility] 07-30-2023 17:29-0400 Body height 167.64 cm PHYSICIAN NO [facility] 07-30-2023 17:29-0400 Body mass index (BMI) [Ratio] 34.1 kg/m2 PHYSICIAN NO [facility] 07-30-2023 17:29-0400 Body weight 95.87 kg PHYSICIAN NO [facility] 07-30-2023 17:29-0400 Diastolic blood pressure 80 mm[Hg] PHYSICIAN NO [facility] 07-30-2023 17:29-0400 Heart rate 60 /min PHYSICIAN NO [facility] 07-30-2023 17:29-0400 Respiratory rate 18 /min PHYSICIAN NO [facility] 07-30-2023 17:29-0400 SaO2% (BldA) [Mass fraction] 95 % PHYSICIAN NO [facility] 07-30-2023 17:29-0400 Systolic blood pressure 140 mm[Hg] PHYSICIAN NO [facility] 04-27-2023 10:40-0500 Body height 170.18 cm Sky Resendiz Other [facility] Other 04-27-2023 10:40-0500 Body mass index (BMI) [Ratio] 32.89 kg/m2 Sky Resnediz Other [facility] Other 04-27-2023 10:40-0500 Body weight 95.26 kg Sky Resendiz Other [facility] Other 04-17-2023 09:30-0500 Body height 170.18 cm Kianna Blackwell Other [facility] Other 04-17-2023 09:30-0500 Body mass index (BMI) [Ratio] 32.92 kg/m2 Kianna Blackwell Other [facility] Other 04-17-2023 09:30-0500 Body temperature 98.2 [degF] Kianna Blackwell Other [facility] Other 04-17-2023 09:30-0500 Body weight 95.35 kg Kianna Blackwell Other [facility] Other 04-17-2023 09:30-0500 Diastolic blood pressure 89 mm[Hg] Kianna Blackwell Other [facility] Other 04-17-2023 09:30-0500 Respiratory rate 18 /min Kianna Blackwell Other [facility] Other 04-17-2023 09:30-0500 SaO2% (BldA) [Mass fraction] 96 % Kianna Blackwell Other [facility] Other 04-17-2023 09:30-0500 Systolic blood pressure 158 mm[Hg] Kianna Blackwell Other [facility] Other 04-01-2023 10:30-0500 Body height 170.18 cm Marie Mandy Other [facility] Other 04-01-2023 10:30-0500 Body mass index (BMI) [Ratio] 32.26 kg/m2 Marie Mandy Other [facility] Other 04-01-2023 10:30-0500 Body temperature 97.4 [degF] Marie Mandy Other [facility] Other 12-13-2023 10:30-0500 Body weight 93.44 kg Marie Mandy Other [facility] Other 04-01-2023 10:30-0500 Diastolic blood pressure 84 mm[Hg] Marie Mandy Other [facility] Other 04-01-2023 10:30-0500 Respiratory rate 20 /min Marie Mandy Other [facility] Other 04-01-2023 10:30-0500 SaO2% (BldA) [Mass fraction] 100 % Marie Mandy Other [facility] Other 04-01-2023 10:30-0500 Systolic blood pressure 131 mm[Hg] Marie Mandy Other [facility] Other 02-18-2023 13:10-0400 Body height 170.18 cm Mary Reyezmond Other [facility] Other 02-18-2023 13:10-0400 Body mass index (BMI) [Ratio] 33.11 kg/m2 Amry Sophia Other [facility] Other 02-18-2023 13:10-0400 Body temperature 97.9 [degF] Mary Sophia Other [facility] Other 02-18-2023 13:10-0400 Body weight 95.89 kg Mary Sophia Other [facility] Other 02-18-2023 13:10-0400 Diastolic blood pressure 72 mm[Hg] Mary Sophia Other [facility] Other 02-18-2023 13:10-0400 Respiratory rate 18 /min Mary Sophia Other [facility] Other 02-18-2023 13:10-0400 SaO2% (BldA) [Mass fraction] 98 % Mary Sophia Other [facility] Other 02-18-2023 13:10-0400 Systolic blood pressure 118 mm[Hg] Mary Sophia Other [facility] Other 02-11-2023 09:00-0400 Body height 170.18 cm Mary Sophia Other [facility] Other 02-11-2023 09:00-0400 Body mass index (BMI) [Ratio] 32.1 kg/m2 Mary Sophia Other [facility] Other 02-11-2023 09:00-0400 Body temperature 97.9 [degF] Mary Sophia Other [facility] Other 02-11-2023 09:00-0400 Body weight 92.99 kg Mary Sophia Other [facility] Other 02-11-2023 09:00-0400 Diastolic blood pressure 83 mm[Hg] Mary Sophia Other [facility] Other 02-11-2023 09:00-0400 Respiratory rate 18 /min Mary Sophia Other [facility] Other 02-11-2023 09:00-0400 SaO2% (BldA) [Mass fraction] 99 % Mary Sophia Other [facility] Other 02-11-2023 09:00-0400 Systolic blood pressure 169 mm[Hg] Mary Cortes Other [facility] Other 11-01-2022 09:35-0400 Body height 170.18 cm Jarred Rendon Other [facility] Other 11-01-2022 09:35-0400 Body mass index (BMI) [Ratio] 32.89 kg/m2 Jarred Rendon Other [facility] Other 11-01-2022 09:35-0400 Body temperature 97.1 [degF] Jarred Rendon Other [facility] Other 11-01-2022 09:35-0400 Body weight 95.26 kg Jarred Rendon Other [facility] Other 11-01-2022 09:35-0400 Diastolic blood pressure 83 mm[Hg] Jarred Rendon Other [facility] Other 11-01-2022 09:35-0400 Respiratory rate 18 /min Jarred Rendon Other [facility] Other 11-01-2022 09:35-0400 SaO2% (BldA) [Mass fraction] 98 % Jarred Rendon Other [facility] Other 11-01-2022 09:35-0400 Systolic blood pressure 137 mm[Hg] Jarred Rendon Other [facility] Other 10-05-2022 10:15-0400 Body height 170.18 cm Kalie French Other [facility] Other 10-05-2022 10:15-0400 Body mass index (BMI) [Ratio] 33.01 kg/m2 Kalie Gillian Other [facility] Other 10-05-2022 10:15-0400 Body temperature 98.2 [degF] Kalie Gillian Other [facility] Other 10-05-2022 10:15-0400 Body weight 95.62 kg Kalie Gillian Other [facility] Other 10-05-2022 10:15-0400 Diastolic blood pressure 76 mm[Hg] Kalie Gillian Other [facility] Other 10-05-2022 10:15-0400 Respiratory rate 18 /min Kalie Gillian Other [facility] Other 10-05-2022 10:15-0400 SaO2% (BldA) [Mass fraction] 98 % Kalie Gillian Other [facility] Other 10-05-2022 10:15-0400 Systolic blood pressure 131 mm[Hg] Kalie Gillian Other [facility] Other 03-19-2022 10:00-0500 Body height 170.18 cm Marie Mandy Other [facility] Other 03-19-2022 10:00-0500 Body mass index (BMI) [Ratio] 33.67 kg/m2 Marie Mandy Other [facility] Other 03-19-2022 10:00-0500 Body temperature 96.9 [degF] Marie Mandy Other [facility] Other 03-19-2022 10:00-0500 Body weight 97.52 kg Marie Mandy Other [facility] Other 03-19-2022 10:00-0500 Diastolic blood pressure 93 mm[Hg] Marie Mandy Other [facility] Other 03-19-2022 10:00-0500 Respiratory rate 20 /min Marie Mandy Other [facility] Other 03-19-2022 10:00-0500 SaO2% (BldA) [Mass fraction] 100 % Marie Mandy Other [facility] Other 03-19-2022 10:00-0500 Systolic blood pressure 160 mm[Hg] Marie Mandy Other [facility] Other 01-26-2022 10:15-0400 Body height 170.18 cm Yuridia Gloria Other [facility] Other 01-26-2022 10:15-0400 Body mass index (BMI) [Ratio] 34.2 kg/m2 Yuridia Gloria Other [facility] Other 01-26-2022 10:15-0400 Body temperature 97.8 [degF] Yuridia Gloria Other [facility] Other 01-26-2022 10:15-0400 Body weight 99.07 kg Yuridia Gloria Other [facility] Other 01-26-2022 10:15-0400 Diastolic blood pressure 85 mm[Hg] Yuridia Castro Other [facility] Other 01-26-2022 10:15-0400 Respiratory rate 20 /min Yuridia Castro Other [facility] Other 01-26-2022 10:15-0400 SaO2% (BldA) [Mass fraction] 97 % Yuridia Castro Other [facility] Other 01-26-2022 10:15-0400 Systolic blood pressure 140 mm[Hg] Yuridia Castro Other [facility] Other Encounters Encounter Date Encounter Type Care Provider Facility Start: 10-12-2023 End: 10-12-2023 ambulatory AYAN LUJAN Not Available Start: 09-03-2023 End: 09-03-2023 ambulatory SHELLY SPARROW Not Available Start: 08-20-2023 End: 08-20-2023 ambulatory Kalie French Facility:[facility] Start: 08-20-2023 End: 08-20-2023 ambulatory PHYSICIAN NO [facility] Work Phone: Start: 08-20-2023 End: 08-20-2023 Departed Referred PHYSICIAN NO [facility] [place] Work Phone: Start: 08-20-2023 End: 08-20-2023 Patient encounter procedure PHYSICIAN NO [facility] Work Phone: Start: 08-20-2023 End: 08-20-2023 ambulatory SHELLY SPARROW Not Available Start: 08-04-2023 End: 08-04-2023 ambulatory SHELLY SPARROW Not Available Start: 07-31-2023 End: 07-31-2023 ambulatory Mary Cortes Facility:[facility] Start: 07-30-2023 End: 07-30-2023 ambulatory PHYSICIAN NO [facility] Work Phone: Start: 07-30-2023 End: 07-30-2023 Patient encounter procedure PHYSICIAN NO [facility] Work Phone: Start: 07-30-2023 End: 07-30-2023 Patient encounter procedure PHYSICIAN NO [facility] Work Phone: Start: 06-25-2023 End: 06-25-2023 ambulatory Lawrence Olexa Facility:[facility] Start: 06-25-2023 End: 06-25-2023 Patient encounter procedure PHYSICIAN NO [facility] Work Phone: Start: 04-27-2023 End: 04-27-2023 ambulatory Sky Resendiz Other [facility] Other Start: 04-27-2023 Office outpatient visit 15 minutes Sky Resendiz [facility] Start: 04-27-2023 Telephone encounter Sky Kwan [facility] Start: 04-17-2023 End: 04-17-2023 ambulatory Kianna Blackwell Other [facility] Other Start: 04-17-2023 Office outpatient visit 15 minutes Kianna Blackwell [facility] Start: 04-01-2023 End: 04-01-2023 ambulatory Marie Mandy Other [facility] Other Start: 04-01-2023 Office outpatient visit 25 minutes Marie Mandy [facility] Start: 03-16-2023 End: 03-16-2023 ambulatory Calderon Ortiz Other [facility] Other Start: 03-16-2023 Telephone encounter Calderon Ortiz [facility] Start: 03-02-2023 End: 03-02-2023 ambulatory Garett L Rommel Facility:[facility] [place] yulisa Start: 02-25-2023 End: 02-25-2023 ambulatory Garett L Rommel Facility:[facility] Start: 02-25-2023 End: 02-25-2023 Patient encounter procedure Garett Tillman [facility] Start: 02-18-2023 Office outpatient visit 15 minutes Mary Cortes [facility] Start: 02-18-2023 End: 02-18-2023 ambulatory PHYSICIAN NO [facility] Other Start: 02-18-2023 End: 02-18-2023 Departed Referred PHYSICIAN [facility] [place] Work Phone: Start: 02-17-2023 End: 02-17-2023 ambulatory Gosia Zaman Facility:[facility] Start: 02-11-2023 Office outpatient visit 15 minutes Mary Cortes [facility] Start: 02-11-2023 End: 02-11-2023 ambulatory PHYSICIAN NO FAMILY Facility:[facility] Start: 02-11-2023 End: 02-11-2023 ambulatory [employer] Mary Sophia Work Phone: [facility] Work Phone: Start: 02-11-2023 End: 02-11-2023 Departed Referred [employer] Mary Sophia Work Phone: [facility] [place] Work Phone: Start: 02-02-2023 End: 02-02-2023 ambulatory Calderon Ortiz Other [facility] Other Start: 02-02-2023 Telephone encounter Calderon TORO [facility] Start: 12-01-2022 End: 12-01-2022 ambulatory Nawaf Gonzalez Facility:[facility] [place] yulisa Start: 11-03-2022 End: 11-03-2022 ambulatory Jarred Rendon Other [facility] Other Start: 11-03-2022 Telephone encounter Jarred Rendon [facility] Start: 11-01-2022 End: 11-01-2022 ambulatory Jarred Justice Other [facility] Other Start: 11-01-2022 Office outpatient visit 15 minutes Jarred Justice [facility] Start: 10-05-2022 End: 10-05-2022 ambulatory Kalie French Other [facility] Other Start: 10-05-2022 Office outpatient visit 15 minutes Kalie French [facility] Start: 09-03-2022 End: 09-04-[address] ANDRES SIMMS . Facility:[facility] Start: 07-02-2022 End: 07-03-[address] ANDRES SIMMS . Facility: Start: 03-19-2022 End: 03-19-2022 ambulatory Marie Galvan Other [facility] Other Start: 03-19-2022 Office outpatient ne w 45 minutes Marie Mandy [facility] Start: 02-24-2022 End: 02-25-[address] ANDRES SIMMS . Facility:[facility] Start: 02-11-2022 End: 02-11-2022 Patient encounter procedure Gosia Zaman [facility] Start: 01-26-2022 End: 01-26-2022 ambulatory Yuridia Castro Other [facility] Other Start: 01-26-2022 Office outpatient visit 15 minutes Yuridia Castro [facility] Start: 01-14-2022 End: 01-15-[address] DOCTOR RAMOS Facility:[facility] Start: 01-07-2022 End: 01-07-2022 ambulatory Calderon Ortiz Other [facility] Other Start: 01-07-2022 Telephone encounter Calderon TORO [...] 08-21-2023 Bacteria identified in Urine by Culture [facility] Start: 08-20-2023 Bacteria identified in Urine by Culture Urine Culture [facility] Start: 07-30-2023 Bacteria identified in Urine by Culture [facility] Start: 02-18-2023 Bacteria identified in Urine by Culture [facility] Start: 02-11-2023 Bacteria identified in Urine by Culture [facility] Start: 10-09-2020 Bacteria identified in Urine by Culture Urine Culture [facility] Immunizations Immunization Date Immunization Notes Care Provider Luis Armando [facility] 04-02-2022 SARS-CoV-2 (COVID-19 ) [id number] Garett Rommel [facility] Comment on above: Result Comment: 2022: [id number] 02-15-2022 influenza virus vaccine, unspecified formulation Garett Rommel [facility] 02-15-2022 pneumococcal 20-samy nt conjugate vaccine Garett Rommel [facility] 02-20-2021 SARS-CoV-2 (COVID-19 ) mRNA-1273 vaccine Garett Rommel [facility] Comment on above: Result Comment: 2022: [id number] 07-11-2020 SARS-CoV-2 (COVID-19 ) mRNA-1273 vaccine Garett Rommel [facility] 06-14-2020 SARS-CoV-2 (COVID-19 ) mRNA-1273 vaccine Garett Rommel [facility] 02-27-2020 influenza virus vaccine, unspecified formulation Garett Rommel [facility] 06-14-2019 zoster vaccine recombinant Garett Rommel [facility] 01-24-2019 influenza virus vaccine, unspecified formulation Garett Rommel [facility] 02-19-2018 influenza virus vaccine, unspecified formulation Garett Rommel [facility] 01-06-2017 influenza virus vaccine, unspecified formulation Garett Rommel [facility] Payers Date Payer Category Payer Self-pay [id number] 1959 Medicare [id number] 2.1 [id number] 1959 Private Health Insurance CLI [id number] 1955 Unknown [id number] 2.16.84 0.1.258069.3.579.2.593 1955 Unknown [id number] 2.16.84 0.1.756447.3.579.2.593 1955 Unknown [id number] 2.16.84 0.1.499531.3.579.2.593 1955 Unknown [id number] 2.16.84 0.1.652317.3.579.2.593 1955 Unknown [id number] 2.16.84 0.1.390619.3.579.2.593 1955 Unknown [id number] 2.16.84 0.1.337676.3.579.2.593 1955 Unknown [id number] 2.16.84 0.1.994155.3.579.2.593 1955 Unknown [id number] 2.16.8 40.1.579164.3.579.2.727 1955 Unknown [id number] 2.16.8 40.1.049020.3.579.2.727 1955 Unknown [id number] 2.16.8 40.1.622972.3.579.2.727 1955 Unknown [id number] 2.16.8 40.1.645811.3.579.2.727 1955 Unknown [id number] 2.16.8 40.1.508012.3.579.2.727 1955 Unknown [id number] 2.16.84 0.1.879720.3.579.2.1259 1955 Unknown [id number] 2.16.84 0.1.585862.3.579.2.1259 1955 Unknown [id number] 2.16.84 0.1.065625.3.579.2.1259 1955 Unknown [id number] 2.16.84 0.1.249774.3.579.2.1259 1955 Unknown [id number] 2.16.84 0.1.743210.3.579.2.1259 Private Health Insurance [id number] Private Health Insurance [id number] Unknown [id number] Unknown [id number] 2.16.8 40.1.576305.3.579.2.531 Unknown [id number] 2.16.8 40.1.381879.3.579.2.531 Unknown [id number] 2.16.8 40.1.618411.3.579.2.531 Unknown [id number] 2.16.8 40.1.234611.3.579.2.531 Unknown [id number] 2.16.8 40.1.408771.3.579.2.531 Social History Date Type [facility]ail [facility] Start: 1955 Sex Assigned At Female F [facility] Sex Assigned At [facility] Tobacco smoking status No Smokin g Status Entered [facility] Start: 12-01-2022 End: 06-18-2023 Tobacco smoking status Never smoked tobacco (finding) [facility] Tobacco smoking status Never [facility] Clinical Notes 10-18-2021 to 04-27-2023 Note Date [...] 2024. Her last colonoscopy was performed at [facility] with Dr. Greenberg. Repeat colonoscopy in one year. [facility] Other 01-08-2024 Evaluation note* Encounter Date Diagnosis Assessment Notes Treatment Notes Treatment Clinical Notes Apr, GERD (gastroesophageal reflux disease) (ICD-10 - K21.9) [facility] Other 12-29-2023 Evaluation note* Encounter Date Diagnosis [...] plan. Mar, Other Asthma material was printed. [facility] Other 12-13-2023 Evaluation note* Encounter Date Diagnosis Assessment Notes Treatment Notes Treatment Clinical Notes Mar, Asthma (ICD-10 - J45.909) Notify office is you develop wheezing, cough, shortness of breath..will then order maintenance BREO or Symicort. Mar, Reactive airway disease with wheezing (ICD-10 - J45.909) Control seasonal allergy symptoms Mar, GERD (gastroesophageal reflux disease) (ICD-10 - K21.9) [facility] Other 11-01-2023 Evaluation note* Encounter Date Diagnosis Assessment Notes Treatment Notes Treatment Clinical Notes Feb, Dysuria (ICD-10 - R30.0) Feb, Cystitis (ICD-10 - N30.90) Drink plenty fluids, get plenty of rest. Take the Cipro as prescribed until gone. Follow-up with your urologist for reevaluation in the next week or so. Take Tylenol or Motrin as needed for aches pains or fevers [facility] Other 10-25-2023 Evaluation note* Encounter Date Diagnosis Assessment Notes Treatment Notes Treatment Clinical Notes Jan, Dysuria (ICD-10 - R30.0) Jan, Acute cystitis with hematuria (ICD-10 - N30.01) Drink plenty fluids, get plenty of rest. Take the Macrobid as prescribed until gone. Continue take the Azo for your symptoms. Follow-up with your family physician if no improvement in 2 to 3 days. [facility] Other 10-16-2023 Evaluation note* Encounter Date Diagnosis Assessment Notes Treatment Notes Treatment Clinical Notes Jan, GERD (gastroesophageal reflux disease) (ICD-10 - K21.9) [facility] Other 07-15-2023 Evaluation note* Encounter Date Diagnosis [...] Pt understood and agreed to treatment plan. [facility] Other 06-18-2023 Evaluation note* Encounter Date Diagnosis [...] worsening. Patient verbalized understanding of treatment plan. [facility] Other 11-30-2022 Evaluation note* Encounter Date Diagnosis Assessment Notes Treatment Notes Treatment Clinical Notes Feb, Asthma (ICD-10 - J45.909) Important to keep allergy and GERD symptoms under control to help prevent airway irritation. Feb, Reactive airway disease with wheezing (ICD-10 - J45.909) Call office if you develop cough/wheezing before next appointment. Will then begin ICS/LABA such as BREO or Symbicort. [facility] Other 10-09-2022 Evaluation note* Encounter Date Diagnosis Assessment Notes Treatment Notes Treatment Clinical Notes Jan, Moderate persistent asthma with exacerbation (ICD-10 - J45.41) recommend patient follow up with PCP since she is using rescue inhaler in evening and this is seconda flare up. She is interested in discussing seeing a specialist due to her symptoms. [facility] Other 07-01-2022 History general Narrative - Reported* Type Description Date Medical History HTN Medical History Arthritis Medical History ASTHMA OCTOBER 2021 Surgical History Lap Britta Hospitalization History See past surgical hx [facility] Other 07-01-2022 History general Narrative - Reported* Type Description Date Medical History HTN Medical History Arthritis Medical History ASTHMA OCTOBER 2021 Medical History Esophageal reflux Medical History schatzki ring Surgical History Lap Britta Surgical History EGD with dilitation Surgical History Colonoscopy Surgical History Colposcopy Hospitalization History See past surgical hx [facility] Other 07-01-2022 History general Narrative - Reported* Type Description Date Medical History HTN Medical History Arthritis Medical History ASTHMA OCTOBER 2021 Medical History Esophageal reflux Medical History schatzki ring Medical History reactive airway disease Surgical History Lap Britta Surgical History EGD with dilitation Surgical History Colonoscopy Surgical History Colposcopy Hospitalization History See past surgical hx Hospitalization History [facility] wheezing 09/2022 [facility] Other Evaluation + Plan note No data available for this section [facility] Future Appointments Appointment Date:03/02/2023 10:00:00 AM Scheduled Provider:Garett Elizondo Location:[facility] Appointment Type: Open Appointment Date:12/03/2023 09:30:00 AM Scheduled Provider: Location:[facility] Appointment Type:FM Medicare Wellness Subsequent [facility] assessment information available [facility] note[facility] Other Evaluation note* Diagnosis Onset Date Resolution Status Acute pain of right shoulder acute Contusion of right shoulder acute UTI (urinary tract infection) noneactive [facility] Work Phone: Evaluation note* Diagnosis Onset Date Resolution Status Acute pain of right shoulder acute Contusion of right shoulder acute UTI (urinary tract infection) noneactive Urinary tract infection acut e [facility] Work Phone: Hospital Discharge instructions No data available for this section [facility] No data available for this section [facility] Advance Directives No Advanced Directives Records Found [...] CREATED AUTHOR AUTHOR'S ORGANIZ ATION 08/27/2023 [facility] DATE CREATED AUTHOR AUTHOR'S ORGANIZ ATION 10/08/2023 [facility] DATE CREATED AUTHOR AUTHOR'S ORGANIZ ATION 10/13/2023 [facility] FOR RECORDS PERTAINING TO PATIENTS WHO [...] BE BASED ON THE PRIMARY CLINICAL RECORDS. [facility] [employer] [facility]. provides no warranty or guarantee of the accuracy or completeness of information in this document.
[2023-11-15 22:00] VITALS: BP 177/98; PULSE 77; TEMP 36.7; O2SAT 99; BMI 33.3
--- NOTE | 2023-11-15 22:27 | XR_ITS ---
The [address] [address] Patient Name: DONELL DENISE MRN: [id number] date: 1955 Sex: F Assigned Patient Location: ER Current Patient Location: ER Accession/Order Number: [id number] Exam Date: 11/15/2023 22:35 Report Date: 11/15/2023 22:55 At the request of: MELL BRADFORD Procedure: XR foot LT min 3V EXAM: XR foot LT min 3V HISTORY: The patient is a 68-year-old female, great toe injury COMPARISON: None. FINDINGS: There is a nondisplaced oblique fracture of the distal half of the left great toe distal phalanx. This fracture does not extend to the articular surface. No other fractures or dislocations are seen throughout the left foot. XR/XR foot LT min 3V IMPRESSION: Nondisplaced extra-articular fracture of the first distal phalanx. Electronically authenticated by: DIOR CATALAN Date: 11/15/2023 22:55
--- NOTE | 2023-11-15 22:28 | ED.WOUNDLAC1 ---
HPI - Wound/Laceration General Chief Complaint: Wound/Laceration Stated Complaint: WOUND CHECK, LOWER LEFT EXTREMITY Time Seen by Provider: 11/15/23 22:18 Source: patient Mode of arrival: walk-in History of Present Illness HPI narrative: patient stubbed her left great toe on a rug at home. Now presents for evaluation. Thought she may have loss her nail. Mild pain. Not able to remember last tetanus shot. Denies numbness of the toe. Related Data Allergies Allergy/AdvReac Type Severity Reaction Status Date / Time nitrofurantoin Allergy Mild Hives Verified 11/15/23 22:05 [From Macrodantin] Review of Systems ROS Status of ROS 10 or more systems reviewed and unremarkable except as noted in history and below Exam Constitutional Vital Signs, click to edit/add: Last Vital Signs Temp 98.0 F 11/15/23 22:00 Pulse 77 11/15/23 22:00 Resp 16 11/15/23 22:00 BP 177/98 H 11/15/23 22:00 Pulse Ox 99 11/15/23 22:00 O2 Del Method Room Air 11/15/23 22:00 Common normals: no apparent distress, average body habitus, oriented x3, no limitations, healthy appearing, alert and well nourished [facility] Common normals: normocephalic and head/scalp atraumatic Respiratory Common normals: normal respiratory effort, no retractions and no use of accessory muscles GI Common normals: Normal to inspection, nondistended, normoactive bowel sounds present Extremity Other: proximal aspect left great toe nail exposed but remains attached to nail bed. no swelling. No active bleeding. N/V intact Neuro Common normals: oriented x3, CN's II-XII intact bilaterally, moves all extremities, no focal motor deficits and no sensory deficits noted Psych Appearance: grossly normal Course Vital Signs Vital signs: Vital Signs Temperature 98.0 F 11/15/23 22:00 Pulse Rate 77 11/15/23 22:00 Respiratory Rate 16 11/15/23 22:00 Blood Pressure 177/98 H 11/15/23 22:00 Pulse Oximetry 99 11/15/23 22:00 Oxygen Delivery Method Room Air 11/15/23 22:00 Temperature 98.0 F 11/15/23 22:00 Pulse Rate 77 11/15/23 22:00 Respiratory Rate 16 11/15/23 22:00 Blood Pressure 177/98 H 11/15/23 22:00 Pulse Oximetry 99 11/15/23 22:00 Oxygen Delivery Method Room Air 11/15/23 22:00 MDM - Wound/Laceration MDM Narrative Medical decision making narrative: patient stubbed her great toe on a rug and exposed the proximal aspect of her nail. Nail still attached to the nail bed. Has lac where proximal nail came thru the skin. No deformity of the toe or swelling. xray with nondisplaced fracture of the distal phalanx. of the great toe. site cleaned and dressed. patient given dose of Augmentin and also a tetanus shot. Advised patient of the importance of follow up with Podiatry tomorrow . Offered to call [facility] Podiatry Dr Pelletier. States she has a surgical consultant and is pretty confident she can get in to be seen. She did not want any pain medication. Placed in an ortho shoe after the wound was dressed and discharged home Imaging Data Chest x-ray: Radiologist's impression: ITS Impressions Foot X-Ray 11/15/23 22:27 IMPRESSION: Nondisplaced extra-articular fracture of the first distal phalanx. Electronically authenticated by: DIOR CATALAN Date: 11/15/2023 22:55 Discharge Plan Discharge Stand Alone Forms: Portal Instructions Chief Complaint: Wound/Laceration Clinical Impression: Open fracture of toe of left foot, Laceration of toe Patient Disposition: Home, Self-Care Print Language: Korean Instructions: Toe Fracture (ED), Laceration Without Closure (ED), Post Surgical Shoe (ED) Additional Instructions: keep toe clean and dry. follow up with your Speed Operator tomorrow for recheck Referrals: JANETTE CARCAMO [Primary Care Provider] - 1 week
[2023-11-15] MEDS: ADACEL DIPH,PERTUSS(ACELL),TET VAC/PF 0.5 ML ADULT SYRINGE IM (23:11)
[2023-11-15] MEDS: AMOXICILLIN/POTASSIUM CLAV 1 TAB TABLET PO (23:11)
[2023-11-15 23:28] VITALS: BP 140/98
== END 2023-11-15 23:29 | disposition home or self-care (01) ==
PROVIDERS: Emergency Provider Internal Medicine; Family Provider Optometrist; PCP Family Medicine
DX: S92.425B Nondisplaced fracture of distal phalanx of left great toe, initial encounter for open fracture (principal); W22.8XXA Striking against or struck by other objects, initial encounter; Z23 Encounter for immunization
CPT/HCPCS: 73630; 90471; 90715; 99284

== ENCOUNTER 2024-07-11 09:35 | Outpatient (OUT) | payer MEDICARE, SELFPAY ==
[2024-07-11 10:47] LABS: Alanine Aminotransferase 19 U/L (14-59); Albumin Globulin Ratio 0.9; Albumin Level 3.3 g/dL (3.4-5.0); Alkaline Phosphatase 65 U/L (46-116); Anion Gap 11.8; Aspartate Amino Transferase 16 U/L (15-37); BUN Creatinine Ratio 17.6; Bilirubin Total 0.5 mg/dL (0.2-1.0); Calcium 8.9 mg/dL (8.5-10.1); Carbon Dioxide 29.3 mmol/L (21.0-32.0); Chloride 103 mmol/L (98-107); Estimated GFR (African America >60 (>=60 mL/min/1.73m^2); Estimated GFR (Non-African Ame >60 (>=60 mL/min/1.73m^2); Globulin 3.7 g/dL; Glucose 97 mg/dL (74-106); Potassium 4.1 mmol/L (3.5-5.1); Sodium 140 mmol/L (136-145)
== END 2024-07-11 09:36 | disposition home or self-care (01) ==
LOC: LAB 09:38
PROVIDERS: Family Provider Optometrist; PCP Family Medicine
DX: N39.0 Urinary tract infection, site not specified (principal)
CPT/HCPCS: 36415; 80053

== ENCOUNTER 2024-12-20 09:22 | Outpatient (OUT) | payer MEDICARE, SELFPAY ==
--- OUTSIDE RECORDS SUMMARY | 2024-12-20 09:45 | XMS_ITS | CCD ---
Author Organization [facility] Care Team Providers Care Substitute Crossing Guard Name Role Phone Gloria Yuridia Attending Provider ANDRES SIMMS Primary Care Physician Marie Galvan Unavailable Calderon Ortiz Unavailable NILESH, DR GEE Barnard Admitting Unavailabl e SIMMS ., DR ANDRES Dennis Primary Care Unavailable NILESH, DR GEE Barnard Attending Unavailabl e ZIEBER, DR MIHAI Izaguirre Consulting Unavailable GRECHNY ., SANKET BOTELLO Consulting Unavailabl e SIMMS ., DR ANDRES Dennis Admitting Unavailable SIMMS ., DR ANDRES Dennis Attending Unavailable SIMMS ., DR ANDRES Dennis Consulting Unavailable SIMMS ., DR ANDRES Dennis Primary Care Unavailable SIMMS ., DR ANDRES Dennis Primary Care Unavailable ZIEBJORGE, DR MIHAI Izaguirre Consulting Unavailable ROMMEL ., [...] FAMILY, PHYSICIAN Primary Care Provider Unava ilable Janette Carcamo. Primary Care Physician Kianna Blackwell Unavailable Sky Resendiz Unavailable NO FAMILY, PHYSICIAN Primary Care Provider Unava ilable MD Lawrence Gaytan Attending Provider [phone] MERT Cortes Attending Provider MD Janette Carcamo Primary Care Provider EBONY French Attending Provider Janette Carcamo MD Primary Care Provider JIE HANNA Referring Unavailable JANETTE CARCAMO Primary Care Unavailable Janette Carcamo MD Primary Care Provider Gosia Zaman DO Attending Provider Janette Carcamo MD Primary Care Provider Janette Carcamo MD Primary Care Provider [phone] Yaneli Lobo APRN Attending Provider Yaneli Lobo Attending Unavail able Yaneli Lobo Admitting Unavail able NO FAMILY, PHYSICIAN Primary Care Unavailable Janette Carcamo Primary Care Unavailable Gosia Zaman Attending Unavailable Gosia Zaman Admitting Unavailable NO FAMILY, PHYSICIAN Primary Care Provider Unava ilable GOSIA ZAMAN Attending Unavailable AYAN YOU Attending Unavailable BROWN, JIM A Attending Unavailable BROWN, JIM A Referring Unavailable BROWN, JIM A Attending Unavailable BROWN, JIM A Referring Unavailable BROWN, JIM A Attending Unavailable BROWN, JIM A Attending Unavailable BROWN, JIM A Attending Unavailable BROWN, JIM A Referring Unavailable BROWN, JIM A Attending Unavailable BROWN, JIM A Referring Unavailable JIE HANNA Referring Unavailable JANETTE CARCAMO Primary Care Unavailable Janette Carcamo Admitting Unavailable Janette Carcamo. Attending Unavailable Garett Tillman Attending Unavailable Garett Tillman Attending Unavailable Garett Tillman Attending Unavailable Janette Carcamo Admitting Unavailable Janette Carcamo Attending Unavailable Rommel, PINKY Badillo Attending Unavailable Rommel, PINKY Badillo Attending Unavailable Rommel, PINKY Badillo Attending Unavailable Allergies Allergy Classification Reported Allergen(s) Allergy Type Date of Onset Reaction(s) Facility (3 sources) NITROFURANTOIN, MACROCRYSTALS / Nitrofurantoin, Monohydrate; Translations: [nitrofurantoin] Drug Allergy Burning pain (finding), Weal (disorder) [facility] (18 sources) Nitrofurantoin Drug Allergy 4 Itching, Hives, Rash [facility] (1 source) Nitrofurantoin Drug Allergy 5 [facility] Repository (2 sources) Nitrofurantoin; Translations: [Macrobid] Drug Allergy [facility] Repository Medications Current Medications Medication Drug Class(es) Dates Sig (Normalized) Sig (Original) [id number] 200 actuat albuterol 0.09 mg/actuat metered dose inhaler (20 sources) beta2-Adrenergic Agonist Start: 09-28-2024 End: 09-28-2024 take 1 puff(s) by inhalation every six hours as needed for wheezing Albuterol Sulfate 90 mcg/actuation HFA aerosol inhaler Active 2 PUFF INHALATION Every 6 hours as needed for shortness of breath or wheezing 8.5 September 28, 2024 11:15am Start: 09-30-2023 take 1 puff(s) by inhalation four times daily albuterol sulfate HFA (PROVENTIL;VENTOLIN;PROAIR) 108 (90 Base) MCG/ACT inhaler Inhale 1 puff into the lungs 4 times daily 09/30/2023 Active Start: 09-30-2023 End: 05-03-2024 Albuterol Sulfate 90 mcg/act uation HFA aerosol inhaler Discontinued 2 INH INHALATION Every 4 hours as needed for shortness of breath or wheezing 8.5 September 30, 2023 11:11am May 03, 2024 11:07am Start: 09-30-2023 End: 05-03-2024 Albuterol Sulfate 2.5 mg /3 mL (0.083 %) solution for nebulization Discontinued 2.5 MG INHALATION every 6 to 8 hours as needed September 30, 2023 11:09am May 03, 2024 11:07am Start: 06-25-2023 End: 09-30-2023 take 3 mL by inhalation every three hours as needed Albuterol Sulfate 2.5 mg /3 mL (0.083 %) solution for nebulization Discontinued MG INHALATION June 25, 2023 1:00am September 30, 2023 11:10am FreeTextSi mL as needed Inhalation every 3 hrs; Note: Source Status: Taking; Provider: Astrid Swanson ( ) Start: 06-25-2023 End: 09-30-2023 take 2 puff(s) by inhalation every four hours as needed Albuterol Sulfate 90 mcg/actuation HFA aerosol inhaler Discontinued 2 PUFF INHALATION Every 4 hours June 25, 2023 1:00am September 30, 2023 11:10am FreeTextSi puff as needed Inhalation every 4 hrs; Note: Source Status: Taking; Provider: Mandy Vance Albuterol Sulfat e (2.5 MG/3ML) 0.083% 3 mL as needed Inhalation every 3 hrs Active take 2 puff(s) by inhalation every four hours as needed Albuterol Sulfate HFA 108 (90 Base) MCG/ACT 2 puff as needed Inhalation every 4 hrs Active Albuterol Sulfat e (2.5 MG/3ML) 0.083% 3 mL as needed Inhalation every 3 hrs Active take 2 puff(s) by inhalation every four hours as needed Albuterol Sulfate HFA 108 (90 Base) MCG/ACT 2 puff as needed Inhalation every 4 hrs for 30 days Active take 2 puff(s) by inhalation every four hours as needed Albuterol Sulfate HFA 108 (90 Base) MCG/ACT 2 puff as needed Inhalation every 4 hrs for 30 days Active Albuterol (Eqv-ProAir HFA) 90 mcg/inh inhalation aerosol (2 sources) Start: 09-01-2022 take 2 puff(s) by inhalation [...] a day for 5 day(s) Jan, Active cetirizine hydrochloride 5 mg oral tablet (18 sources) Histamine-1 Receptor Antagonist Start: 01-26-2022 take 1 tablet by mouth once daily cetirizine (ZyrTEC) 5 MG tablet TAKE 1 TABLET BY MOUTH EVERY DAY FOR 30 DAYS 01/26/2022 Active ciprofloxacin 500 mg oral tablet (2 sources) Quinolone Antimicrobial Start: 02-18-2023 take 1 tablet by mouth every twelve hours Cipro 500 MG 1 tablet Orally every 12 hrs for 7 days Feb, Active Cranberry Extract (20 sources) Non-Standardized Food Allergenic Extract, Non-Standardized Plant Allergenic Extract Start: 06-25-2023 take 1 capsule by mouth once daily Cranberry Extract (Ellura) 200 mg capsule Active 200 MG PO Daily June 25, 2023 12:00am administer with a meal Start: 06-25-2023 take 1 capsule by mo [facility] once daily Cranberry Extract (Ellura) 200 mg capsule Active 200 MG PO Daily June 25, 2023 1:00am administer with a meal Start: 09-02-2022 Ellura 1 cap, Daily, Refill(s) 0 Start Date: 09/02/22 Status: Ordered CRANBERRY PO Alon e by mouth Active Cranberry (ELLUR A) 200 MG CAPS Take by mouth Active Ellura 200 MG as directed Orally Active estradiol 0.1 mg/ml vaginal cream (1 source) Estrogen Start: 10-05-2023 estradiol (ESTRACE) 0.1 MG/GM vaginal cream Indications: Frequent UTI , Atrophic vaginitis Place 1 g vaginally Twice a Week 42.5 g 2 10/05/2023 Active hydroCHLOROthiazide 12.5 mg / losartan potassium 100 mg oral tablet (20 sources) Thiazide Diuretic, Angiotensin 2 Receptor Jose Start: 06-25-2023 End: 09-30-2023 take 1 tablet by mouth once daily Losartan-Hydrochl orothiazide 100-12.5 mg tablet Active 1 TAB PO Daily September 30, 2023 11:10am Start: 02-06-2023 take 1 tablet by king th once daily hydrochlorothiazide-losartan 12.5 mg-100 mg oral tablet 1 tab(s), Oral, Daily, 90 tab(s), Refill(s) 1, [facility], 165, cm, 12/01/22 10:14:00 EDT, Height/Length Dosing, 95.6, kg, 12/01/22 10:14:00 EDT, Weight Dosing Start Date: 02/06/23 Status: Ordered Start: 02-04-2023 hydrochlorothi azide-losartan 12.5 mg-50 mg Tab 1 tab(s), Oral, Daily, 90 tab(s), Refill(s) 1, [facility], 165, cm, 12/01/22 10:14:00 EDT, Height/Length Dosing, 95.6, kg, 12/01/22 10:14:00 EDT, Weight Dosing Start Date: 02/04/23 Status: Ordered Start: 09-02-2022 take 1 tablet by king th in the morning losartan-hydroCHLOROthiazide (Hyzaar) 50-12.5 MG tablet Take 1 tablet by mouth in the morning. 09/02/2022 Active hydrocortisone acetate 10 mg/ml / pramoxine hydrochloride 10 mg/ml rectal foam (1 source) Corticosteroid Start: 03-02-2023 Proctofoam HC rectal foam 1 deny, Rectal, QID, 10 gram, Refill(s) 0, [facility], 165, cm, 03/02/23 10:05:00 EST, Height/Length Dosing, 94.1, kg, 03/02/23 10:05:00 EST, Weight Dosing Start Date: 03/02/23 Status: Ordered losartan potassium 25 mg oral tablet (1 source) Angiotensin 2 Receptor Jose take 1 tablet by mouth once daily losartan (COZAAR) 25 MG tablet Take 1 tablet by mouth daily Active methenamine hippurate 1000 mg oral tablet (2 sources) Start: 12-08-2023 take 1 tablet by mouth once daily methenamine hippurate 1 g oral tablet 1 gm = 1 tab(s), Oral, Daily, Refills(s) 0 Start Date: 12/08/23 Status: Ordered Start: 10-02-2023 take 1 tablet by king th once daily methenamine (HIPREX) 1 g tablet Indications: Frequent UTI Take 1 tablet by mouth daily Pt is holding med at this time. Taking an antibiotic. 90 tablet 1 10/02/2023 Active montelukast 10 mg oral tablet (20 sources) Leukotriene Receptor Antagonist Start: 09-01-2022 End: 08-04-2024 take 1 tablet by mouth at bedtime montelukast (Singulair) 10 MG tablet Take 10 mg by mouth at bedtime. 09/01/2022 Active Multiple Vitamin (MULTIVITAMIN ADULT PO) (1 source) Multiple Vitamin (MULTIVITAMIN ADULT PO) Take by mouth Active Multivitamin preparation (15 sources) Multivitamin Act vipul Multivitamins and Minerals (3 sources) Start: 09-08-2014 Multivitamins and Minerals See Instructions, Oral, Daily, Refill(s) 0, Prophylaxis Start Date: 09/08/14 Status: Ordered omeprazole 20 mg delayed release oral capsule (1 source) Proton Pump Inhibitor take 1 capsule by mouth once daily omeprazole (PRILOSEC) 20 MG delayed release capsule Take 1 capsule by mouth daily Active raloxifene hydrochloride 60 mg oral tablet (20 sources) Estrogen Agonist/Antagonis t Start: 06-25-2023 take 1 mg by mouth once daily Raloxifene Active MG PO Daily June 25, 2023 1:00am FreeTextSig: Orally Once a day; Note: Source Status: Taking; Provider: Astrid Swanson ( ) Start: 09-08-2014 take 1 tablet by king th in the morning raloxifene (Evista) 60 MG tablet Indications: Osteoporosis, unspecified osteoporosis type, unspecified pathological fracture presence Take 1 tablet (60 mg) by mouth in the morning. 90 tablet 3 05/26/2024 Active Completed/Discontinued Medications Medication Drug Class(es) Dates Sig (Normalized) Sig (Original) bisoprolol fumarate 10 mg / hydroCHLOROthiazide 6.25 mg oral tablet (17 sources) Thiazide Diuretic, beta-Adrenergic Jose Start: 06-05-2022 End: 05-19-2024 take 1 tablet by mouth in the morning bisoprolol-hydroC HLOROthiazide (Ziac) 10-6.25 MG tablet Take 1 tablet by mouth in the morning. 06/05/2022 05/19/2024 Discontinued Start: 09-12-2014 Ziac 5 mg-6.25 mg oral tablet Oral, Daily, Refill(s) 0, High blood pressure Start Date: 09/12/14 Status: Ordered take 1 tablet by king th every twenty-four hours Ziac 10-6.25 MG 1 tablet Orally Once a day Active cephalexin 500 mg oral capsule (8 sources) Cephalosporin Antibacterial Start: 09-11-2024 End: 09-28-2024 take 1 capsule by mouth every twelve hours Cephalexin 500 mg capsule Discontinued 500 MG PO Every 12 hours September 11, 2024 12:00am September 28, 2024 11:12am Start: 07-30-2023 End: 08-20-2023 take 1 capsule by mouth twice daily Cephalexin 500 mg capsule Discontinued 500 MG PO Twice daily 31 10July 30, 2023 12:00am August 20, 2023 2:22pm methylPREDNISolone (20 sources) Corticosteroid Start: 12-09-2023 End: 05-19-2024 methylPREDNISolone (Medrol Dospak) 4 MG tablets Indications: Capsulitis of metatarsophalangeal (MTP) joint of right foot Follow schedule on MEDROL PACK package instructions to be used as directed 21 tablet 12/09/2023 05/19/2024 Discontinued Start: 12-09-2023 methylPREDNISo lone (Medrol Dospak) 4 MG tablets Indications: Capsulitis of metatarsophalangeal (MTP) joint of right foot Follow schedule on MEDROL PACK package instructions to be used as directed 21 tablet 12/09/2023 Active Start: 08-04-2023 End: 05-19-2024 methylPREDNISolone (Medrol D ospak) 4 MG tablets Indications: Capsulitis of metatarsophalangeal (MTP) joint of right foot Follow schedule on MEDROL PACK package instructions to be used as directed 21 tablet 08/04/2023 05/19/2024 Discontinued Start: 08-04-2023 methylPREDNISo lone (Medrol Dospak) 4 MG tablets Indications: Capsulitis of metatarsophalangeal (MTP) joint of right foot Follow schedule on MEDROL PACK package instructions to be used as directed 21 tablet 08/04/2023 Active Start: 02-05-2023 End: 12-09-2023 methylPREDNISolone (Medrol D ospak) 4 MG tablets Indications: Capsulitis of metatarsophalangeal (MTP) joint of right foot Follow schedule on MEDROL PACK package instructions to be used as directed 21 tablet 02/05/2023 12/09/2023 Discontinued (Ineffective) Start: 02-05-2023 methylPREDNISo lone (Medrol Dospak) 4 MG tablets Indications: Capsulitis of metatarsophalangeal (MTP) joint of right foot Follow schedule on MEDROL PACK package instructions to be used as directed 21 tablet 02/05/2023 Active Start: 01-26-2022 methylPREDNISo lone 4 MG as directed Orally Once a day for 6 days Jan, Active nitrofurantoin, macrocrystals 25 mg / nitrofurantoin, monohydrate [...] 12 hrs for 7 day(s) Oct, Not-Taking pantoprazole 40 mg delayed release oral tablet (20 sources) Proton Pump Inhibitor Start: 12-01-2022 take 40 mg by mouth once daily Protonix 40 mg, Oral, Daily, Refills(s) 0 Start Date: 12/01/22 Status: Ordered Start: 08-30-2021 End: 05-03-2024 take 1 tablet by mouth once daily Pantoprazole (Protonix) 40 mg tablet,delayed release (DR/EC) Discontinued 1 TAB PO Daily June 25, 2023 1:00am May 03, 2024 11:16am FreeTextSi tablet Orally Once a day; Note: Source Status: Refill; Refills: 3; Qty: 90 Tablet; Provider: Astrid Vance predniSONE 20 mg oral tablet (17 sources) Start: 06-25-2023 End: 09-30-2023 take 3 tablets by mouth once daily at mealtime, then take 2 tablets by mouth once daily, then take 1 tablet by mouth once daily Prednisone 20 mg tablet Discontinued MG PO June 25, 2023 1:00am September 30, 2023 11:17am FreeTextSig: as directed with food Orally 3 tablets qday x 3 days, 2 tablets qday x 3 days, 1 tablet qday x3 days; Note: Source Status: Not-TakingundefinedPRN; Refills: 0; Qty: 18 Tablet; Provider: Rosalva [...] a day for 9 days Sep, Not-Taking sulfamethoxazole 800 mg / trimethoprim 160 mg oral tablet (5 sources) Dihydrofolate Reductase Inhibitor Antibacterial, Sulfonamide Antimicrobial Start: 08-20-2023 End: 09-30-2023 take 1 tablet by mouth every twelve hours Sulfamethoxazole-Trimethoprim 800-160 mg tablet Discontinued 1 TAB PO Every 12 hours 14 7 August 20, 2023 12:00am September 30, 2023 11:17am Problems Active Problems Problem Classification Problem Date Documented Date Episodic/Chronic Abdominal pain (5 sources) Indigestion; Translations: [Epigastric pain] Onset: 5 05-03-2024 Episodic Asthma (20 sources) Exacerbation of moderate persistent asthma; Translations: [Moderate persistent asthma with (acute) exacerbation] Onset: 2 Chronic Cancer of cervix (1 source) Malignant tumor of cervix; Translations: [Malignant neoplasm of cervix uteri, unspecified] Onset: 4 10-01-2023 Chronic Diabetes mellitus without complication (1 source) Hyperglycemia, unspecified; Translations: [HYPERGLYCEMIA UNSPECIFIED] Onset: 3 Episodic Disorders of lipid metabolism (1 source) Pure hypercholesterolemia, unspecified; Translations: [PURE HYPERCHOLESTEROLEMIA UNSPEC] Onset: 2 Chronic Esophageal disorders (20 sources) Terminal esophageal web; Translations: [Esophageal obstruction] Onset: 2 Chronic Essential hypertension (9 sources) Essential (primary) hypertension; Translations: [Hypertensive disorder] Onset: 2 Chronic Fracture of lower limb (6 sources) Closed fracture of distal phalanx of great toe; Translations: [Displaced fracture of distal phalanx of left great toe, initial encounter for closed fracture] 12-27-2023 Episodic Hemorrhoids (1 source) Hemorrhoids 03-02-2023 Episodic Malaise and fatigue (5 sources) Other fatigue; Translations: [Fatigue] Onset: 3 Episodic Menopausal disorders (2 sources) Atrophy of vagina; Translations: [Postmenopausal atrophic vaginitis] 05-19-2024 Chronic Nutritional deficiencies (1 source) Vitamin D deficiency 12-08-2023 Chronic Other and unspecified benign neoplasm (2 sources) Melanocytic nevus of lower limb; Translations: [Melanocytic nevi of unspecified lower limb, including hip] 10-25-2024 Episodic Other and unspecified benign neoplasm (2 sources) Senile angioma; Translations: [Hemangioma of skin and subcutaneous tissue] 10-25-2024 Episodic Other connective tissue disease (4 sources) Capsulitis of metatarsophalangeal joint of right foot; Translations: [Other enthesopathy of right foot and ankle] 12-27-2023 Episodic Other non-traumatic joint disorders (4 sources) Pain in right shoulder; Translations: [Acute pain of right shoulder] 06-24-2023 Episodic Other nutritional; endocrine; and metabolic disorders (3 sources) Obesity 09-12-2014 Chronic Other nutritional; endocrine; and metabolic disorders (1 source) Body mass index 30+ - obesity 12-08-2023 Chronic Other skin disorders (2 sources) Lentiginosis; Translations: [Other melanin hyperpigmentation] 10-25-2024 Episodic Other skin disorders (2 sources) Seborrheic keratosis; Translations: [Other seborrheic keratosis] 10-25-2024 Episodic Prolapse of female genital organs (5 sources) Cystocele; Translations: [Uterovaginal prolapse, unspecified] Onset: 4 10-01-2023 Chronic Superficial injury; contusion (4 sources) Contusion of right shoulder; Translations: [Contusion of right shoulder, initial encounter] 06-25-2023 Episodic Unclassified (1 source) CONTACT W/AND (SUSP) EXPOS COVID-19; Translations: [CONTACT W/AND (SUSP) EXPOS COVID-19] Onset: 2 Unclassified (1 source) Patient encounter status 03-02-2023 Past or Other Problems Problem Classification Problem Date Documented Date Episodic/Chronic Genitourinary symptoms and ill-defined conditions (15 sources) Unspecified symptoms and signs involving the genitourinary system; Translations: [Dysuria] Onset: 01-14-2022 Episodic Other aftercare (1 source) Other rat exterminator (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 therapy; Translations: [OTH HARNESS TIER CURRENT DRUG THERAPY] Onset: 12-30-2021 Episodic Other female genital disorders (1 source) History of abnormal cervical Papanicolaou smear ; Translations: [Personal history of other diseases of the female genital tract] Onset: 10-01-2023 10-01-2023 Episodic Other lower respiratory disease (4 sources) Shortness of breath; Translations: [SHORTNESS OF BREATH] Onset: 12-26-2021 Episodic Other screening for suspected conditions (not mental disorders or infectious disease) (7 sources) Mammography abnormal; Translations: [Encounter for screening, unspecified] Onset: 02-29-2024 02-18-2023 Episodic Other upper respiratory infections (1 source) Acute upper respiratory infection, unspecified; Translations: [ACUTE UP RESPIRATORY INFECTION UNS] Onset: 12-30-2021 Episodic Urinary tract infections (20 sources) Urinary tract infection, site not specified; Translations: [Acute cystitis with hematuria] Onset: 12-13-2021 Episodic Results Test Name Value Interpretation Reference Range Facility Laboratory - Chemistry and C hemistry - challengeon 09-11-2024 Bilirubin Ql (U) Negative [facility] Glucose (U) [Mass/Vol] Negative [facility] Ketones Ql (U) Negative [facility] pH (U) 6.0 [pH] [facility] Specific gravity (U) [Rel density] 1.010 [facility] Urobilinogen (U) [Mass/Vol] 0.2 mg/dL [facility] Laboratory - Specimen inform ationon 09-11-2024 Appearance (U) cloudy [facility] Color (U) lightorange [facility] Laboratory - Urinalysison Leukocyte esterase Test strip Ql (U) Trace [facility] Nitrite Ql (U) Positive [facility] Protein Ql (U) Negative [facility] No Panel Informationon 09-11 Urine Occult Blood Trace-intact [facility] Urine Cultureon 09-11-2024 Bacteria identified Cx Nom (U) No Growth 2 Days PERFORMED BY: [place] [address] PATHOLOGIST [employer] DEON Ojeda [facility] Comment on above: Performed By: #### C UU #### [address] Urine cultureOrdered By: Yumi Lobo on 09-11-2024 Bacteria identified Cx Nom (U) Urine culture [facility] Urinalysis macro (dipstick) panel (U)on 05-19-2024 Bilirubin, UA Negative Negative - 4(70) +++ mg/dL [facility] Blood, UA Negative Negative - 50 Vijay/mcL [facility] Clarity, UA Clear [facility] Color, UA Yellow [facility] Glucose, UA Negative Negative - 2000(110) ++++ mg/dL [facility] Ketones, UA Negative Negative - 160(16) ++++ mg/dL [facility] Leukocytes, UA Negative Negative - 500+++ Lm/mcL [facility] Nitrite, UA Negative Negative - Positive [facility] pH, UA 6.5 5 - 9 [facility] Protein, UA Trace Negative - 2000(20) ++++ mg/dL [facility] Spec Grav, UA 1.02 1 - 1.03 [facility] Urobilinogen, UA 0.2 0.2 - 12 mg/dL [facility] MM screening mammo BI w/CADo n 02-29-2024 MM screening mammo BI w/CAD [facility] [place] [address] [place] [address] Mammography Report Signed Patient: Kimberley Denise MR#: [id number] : 1955 Acct:[id number] Age/Sex: 68 / F ADM Date: 02/29/24 Loc: [place] Room: Type[facility] Attending Dr: Gosia Zaman DO Copies to: DO Janette Lofton MD Ordering Provider: Gosia Zaman DO Date of Service: 02/29/24 MM/MM screening mammo BI w/CAD: screening CLINICAL DATA: Screening for malignancy. BILATERAL SCREENING MAMMOGRAMS - FULL FIELD DIGITAL WITH TOMOSYNTHESIS AND CAD Tomosynthesis craniocaudal and mediolateral oblique views of both breasts were obtained using low- dose digital technique. Comparison is made to prior studies from September 05, 2014 through February 25, 2023 (left). This examination was reviewed with the aid of CAD. There are some areas of heterogeneously dense breast tissue. There are no developing masses, typically malignant calcifications or architectural distortion. There has been no significant interval change. MM/MM screening mammo BI w/CAD IMPRESSION: NO MAMMOGRAPHIC EVIDENCE OF MALIGNANCY. ROUTINE FOLLOW-UP IS RECOMMENDED IN ONE YEAR. RESULT CODE: 1 Negative DENSITY CODE: 3 (approximately 51-75% glandular) FOLLOW UP: 1YR The false-negative rate of mammography is approximately 10-percent. Management of a palpable abnormality must be based on clinical grounds. Patient was entered into a reminder system with a target due date for the next mammogram. Impression dictated by: Radha Horn M.D.02/29/2024 3:31 PM Dictation Location: [facility] Transcribed By: [facility] 02/29/24 1531 Dictated By: Radha Horn MD 02/29/24 1527 Signed By: 02/29/24 1531 Normal [facility] Mammography reportOrdered By : Radha Horn on 02-29-2024 Diagnostic imaging study [facility] [place] [address] [place] [address] Mammography Report Signed Patient: Kimberley Denise MR#: [id number] : 1955 Acct:[id number] Age/Sex: 68 / F ADM Date: 4 Loc: [place] Room: Type: [facility] Attending Dr: Gosia Zaman DO Copies to: DO Janette Lofton MD~ Ordering Provider: Gosia Zaman DO Date of Service: 02/29/24 MM/MM screening mammo BI w/CAD: screening CLINICAL DATA: Screening for malignancy. BILATERAL SCREENING MAMMOGRAMS - FULL FIELD DIGITAL WITH TOMOSYNTHESIS AND CAD Tomosynthesis craniocaudal and mediolateral oblique views of both breasts were obtained using low-dose digital technique. Comparison is made to prior studies from September 05, 2014 through February 25, 2023 (left). This examination was reviewed with the aid of CAD. There are some areas of heterogeneously dense breast tissue. There are no developing masses, typically malignant calcifications or architectural distortion. There has been no significant interval change. MM/MM screening mammo BI w/CAD IMPRESSION: NO MAMMOGRAPHIC EVIDENCE OF MALIGNANCY. ROUTINE FOLLOW-UP IS RECOMMENDED IN ONE YEAR. RESULT CODE: 1 Negative DENSITY CODE: 3 (approximately 51-75% glandular) FOLLOW UP: 1YR The false-negative rate of mammography is approximately 10-percent. Management of a palpable abnormality must be based on clinical grounds. Patient was entered into a reminder system with a target due date for the next mammogram. Impression dictated by: Radha Horn M.D.02/29/2024 3:31 PM Dictation Location: [facility] Transcribed By: [facility] 02/29/24 1531 Dictated By: Radha Horn MD 02/29/24 1527 Signed By: 02/29/[address] [facility] Work Phone: Cult,Urineon 02-12-2024 Cult,Urine Specimen Description .CLEAN CATCH URINE Special Requests Site: Urine Culture NO SIGNIFICANT GROWTH Report Status FINAL 02/12/2024 Normal [facility] Comment on above: Performed By: #### U #### [facility] [address] [place] [address] Field Machinist: Abdiaziz Velazquez MD [facility] [address] [place] [address] Field Machinist: Genaro Tucker MD Urinalysison 02-11-2024 Bilirubin Ql (U) Negative NEGATIVE [facility] Clarity (U) Clear Clear [facility] Color (U) Yellow Yellow [facility] Glucose Test strip (U) [Mass/Vol] Negative NEGATIVE mg/dL [facility] Hemoglobin Auto test strip Ql (U) Negative NEGATIVE [facility] Ketones (U) [Mass/Vol] Negative NEGATIVE mg/dL [facility] Leukocyte esterase Test strip Ql (U) Negative NEGATIVE [facility] Nitrite Ql (U) Negative NEGATIVE [facility] pH (U) 7.0 [pH] 5.0 - 9.0 [facility] Protein (U) [Mass/Vol] Negative NEGATIVE mg/dL [facility] Specific gravity (U) [Rel density] 1.010 1.010 - 1.020 [facility] Urobilinogen Qn (U) Normal 0.0 - 1. 0 EU/dL [facility] Urinalysis, Routineon 2023 Bilirubin, SemiQt,Ur Negative Normal NEG [facility] Comment on above: Performed By: #### U A #### [facility] [address] [place], [place] [id number] Field Machinist: Genaro Tucker MD Blood, Urine Negative Normal NEG [facility] Comment on above: Performed By: #### U A #### [facility] [address] [place] [address] Field Machinist: Genaro Tucker MD Clarity (U) Clear Normal CLEAR [facility] Comment on above: Performed By: #### U A #### [facility] [address] [place] [address] [place] [address] Field Machinist: Genaro Tucker MD Color (U) Yellow Normal YEL [facility] Comment on above: Performed By: #### U A #### [facility] [address] [place] [address] Field Machinist: Genaro Tucker MD Glucose Ql (U) Negative Normal NEG [facility] in [facility] Comment on above: Performed By: #### U A #### [facility] [address] [place] [address] Field Machinist: Genaro Tucker MD Ketones Ql (U) Negative Normal NEG [facility] in Hospital Comment on above: Performed By: #### U A #### [facility] [address] [place] [address] Dr. [place], [place] [id number] Field Machinist: eGnaro Tucker MD Leukocyte esterase Test strip Ql (U) Negative Normal NEG [facility] Comment on above: Performed By: #### U A #### [facility] [address] [place] [address] Dr. [place], [facility] Field Machinist: Genaro Tucker MD Nitrite,Ur Negative Normal NEG [facility] Comment on above: Performed By: #### U A #### [facility] [address] [place] [address] [place] [id number] Field Machinist: Genaro Tucker MD PH,Ur 7.0 Normal 5.0-9.0 [facility] Comment on above: Performed By: #### U A #### [facility] [address] [place] [address] Dr. [place], [facility] Field Machinist: Genaro Tucker MD Protein Ql (U) Negative Normal NEG [facility] Comment on above: Performed By: #### U A #### [address] [place], [facility] Field Machinist: Genaro Tucker MD Spec. [place],Ur 1.010 Normal 1.010-1.02 0 [facility] Comment on above: Performed By: #### U A #### [facility] [address] [place] [address] Dr. [place] [id number] Field Machinist: Genaro Tucker MD Urobilinogen,Ur Normal Normal 0.0-1.0 [facility] Comment on above: Performed By: #### U A #### [facility] [address] [place] [address] [place] [address] Field Machinist: Genaro Tucker MD Ambulatory Visit Summaryon Ambulatory Visit Summary Ambulatory Visit Summary KIMBERLEY DENISE :1955 Visit Date:02/08/2024 Ambulatory Visit Instructions Your Diagnosis HTN (hypertension) Chronic GERD Non-smoker BMI 34.0-34.9,adult Exogenous obesity Your Care Team Attending Physician - Garett Elizondo Primary Care Physician - Janette Carcamo MD This Is Your Medications List albuterol (Albuterol (Eqv-ProAir HFA) 90 mcg/inh inhalation aerosol) cranberry (Ellura) hydrochlorothiazide-losartan (hydrochlorothiazide-losarta n 12.5 mg-100 mg oral tablet) methenamine (methenamine hippurate 1 g oral tablet) montelukast (montelukast 10 mg Tab) multivitamin with minerals (Multivitamins and Minerals) pantoprazole (Protonix) raloxifene (Evista 60 mg Tab) Procedures Performed EGD - Esophagogastroduodenoscopy (2021), Colonoscopy (2014), Cholecystectomy (03/2009). Discharge Vitals Temperature (Oral) 36.6 ?C Heart Rate (Peripheral) 74 Respiratory Rate 18 Blood Pressure 112/68 Height 164.0 cm Height 65 in Weight 92.5 kg Weight 203.5 lb BMI 34.39 What to do next Scheduled Follow-Up Appointments Thursday 9:30 AM EDT Where: [address] [address]- Medications What How Much When Instructions Unchanged albuterol (Albuterol (Eqv-ProAir HFA) 90 mcg/ inh inhalation aerosol) 2 Puffs Inhalation Every 4 hours Unchanged cranberry (Ellura) 1 cap Every day Unchanged hydrochlorothiazide-losartan (hydrochlorothiazide-losarta n 12.5 mg-100 mg oral tablet) 1 Tablets By Mouth Every day Unchanged methenamine (methenamine hippurate 1 g oral tablet) 1 Tablets By Mouth Every day Unchanged montelukast (montelukast 10 mg Tab) 1 Tablets By Mouth Once a day (in the evening) Duration: 90 Days Unchanged multivitamin with minerals (Multivitamins and Minerals) See Instructions By Mouth Every day Unchanged pantoprazole (Protonix) 40 Milligram By Mouth Every day Unchanged raloxifene (Evista 60 mg Tab) 1 Tablets By Mouth Every day Allergies Macrobid (Burning pain, Hives) Problems Ongoing - Any problem that you are currently receiving treatment for. Abnormality of left breast on screening mammogram BMI 33.0-33.9,adult Chronic GERD Fatigue Hemorrhoid History of recurrent UTIs HTN (hypertension) Moderate persistent asthma Obesity Schatzki's ring Screening for hyperlipidemia Vitamin D deficiency Historical - Any problem that you are no longer receiving treatment for. Asthma GERD - Gastro-esophageal reflux disease HTN - Hypertension Schatzki's ring Patient Survey You may receive a survey via text or e-mail asking about your office visit. Please share your experience with us by completing your survey. We appreciate your feedback and thank you for choosing us for your care. Normal [facility] Family Medicine Office/Clini c Noteon 02-08-2024 Family Medicine Office/Clinic Note Family Medicine Office/Clinic Note HPI Staff Kimberley is a 68 year old female presenting with yearly check up Health Maintenance: Colonoscopy: had done in 2014 Dexa: before dr simms left Mammo: 2022 Pap: February 2023 Last Labs: December 23 2023 History of Present Illness pt present for annual visit Review of Systems PHQ Score Initial Depression Screen Score: 0 SCORE Physical Exam Vitals & Measurements T: 36.6 ?C(Oral) HR: 74(Peripheral) RR: 18 BP: 112/68 SpO2: 97% HT: 65 in HT: 164.0 cm WT: 92.5 kg WT: 203.5 lb BMI: 34.39 General: alert, no acute distress ENMT: oral mucosa moist, no pharyngeal erythema or exudate Cardiovascular: regular rate and rhythm, normal peripheral perfusion Respiratory: Lungs CTA, respirations non labored Extremities: no deformity, no trauma Neurological: oriented x 4, LOC appropriate for age, CN II-XII intact, motor strength equal & normal bilaterally, speech normal Assessment/Plan 1. HTN (hypertension) (I10: Essential (primary) hypertension) BP at goal today. does not need refills at this time. Is schedule to have mammogram next month 2. Chronic GERD (K21.9: Gastro-esophageal reflux disease without esophagitis) will follow up with GI will need colonoscopy next year. states she will need EGD soon as well. 3. Non-smoker (Z78.9: Other specified health status) continue not smoking Ordered: hydrocortisone-pramoxine topical, 1 deny, Rectal, QID, 10 gram, Refill(s) 0, [facility], 165, cm, 03/02/23 10:05:00 EST, Height/Length Dosing, 94.1, kg, 03/02/23 10:05:00 EST, Weight Dosing 4. BMI 34.0-34.9,adult (Z68.34: Body mass index [BMI] 34.0-34.9, adult) BMI education given Ordered: hydrocortisone-pramoxine topical, 1 deny, Rectal, QID, 10 gram, Refill(s) 0, [facility], 165, cm, 03/02/23 10:05:00 EST, Height/Length Dosing, 94.1, kg, 03/02/23 10:05:00 EST, Weight Dosing 5. Exogenous obesity (E66.09: Other obesity due to excess calories) see above Follow-up No qualifying data available Problem List/Past Medical History Ongoing Abnormality of left breast on screening mammogram BMI 33.0-33.9,adult Chronic GERD Fatigue Hemorrhoid History of recurrent UTIs HTN (hypertension) Moderate persistent asthma Obesity Schatzki's ring Screening for hyperlipidemia Vitamin D deficiency Historical Asthma GERD - Gastro-esophageal reflux disease HTN - Hypertension Schatzki's ring Procedure/Surgical History EGD - Esophagogastroduodenoscopy (2021), Colonoscopy (2014), Cholecystectomy (03/2009). Medications Albuterol (Eqv-ProAir HFA) 90 mcg/inh inhalation aerosol, 2 puff(s), Inhalation, q4hr Ellura, 1 cap, Daily Evista 60 mg Tab, 60 mg= 1 tab(s), Oral, Daily hydrochlorothiazide-losartan 12.5 mg-100 mg oral tablet, 1 tab(s), Oral, Daily, 4 refills methenamine hippurate 1 g oral tablet, 1 gm= 1 tab(s), Oral, Daily montelukast 10 mg Tab, 10 mg= 1 tab(s), Oral, qPM, 3 refills Multivitamins and Minerals, See Instructions, Oral, Daily Protonix, 40 mg, Oral, Daily Allergies Macrobid (Burning pain, Hives) Social History Alcohol Never., 02/06/2024 Substance Abuse - Denies Substance Abuse, 09/01/2022 Never., 02/06/2024 Tobacco - Denies Tobacco Use, 09/01/2022 Never (less than 100 in lifetime) Tobacco Use:. Never Smokeless Tobacco Use:. Cigarettes, 02/08/2024 Family History Cancer metastatic to gallbladder: Mother. Liver cancer: Sister. Primary malignant neoplasm of female breast: Sister. Primary malignant neoplasm of prostate: Father. Immunizations Vaccine Date Status Comments influenza virus vaccine, inactivated 02/08/2024 Recorded diphtheria/pertussis, acel/tetanus adult 11/15/2023 Recorded zoster vaccine, inactivated 03/10/2023 Recorded influenza virus vaccine, inactivated 03/10/2023 Recorded SARS-CoV-2 (COVID-19) [id number] 04/02/2022 Recorded 2022-09-02: TPV65 pneumococcal 20-valent conjugate vaccine 02/15/2022 Recorded influenza virus vaccine, inactivated 02/15/2022 Recorded SARS-CoV-2 (COVID-19) mRNA-1273 vaccine 02/20/2021 Recorded 2022-09-02: TPV65 SARS-CoV-2 (COVID-19) mRNA-1273 vaccine 07/11/2020 Recorded SARS-CoV-2 (COVID-19) mRNA-1273 vaccine 06/14/2020 Recorded influenza virus vaccine, inactivated 02/27/2020 Recorded zoster vaccine, inactivated 06/14/2019 Recorded influenza virus vaccine, inactivated 01/24/2019 Recorded influenza virus vaccine, inactivated 02/19/2018 Recorded influenza virus vaccine, inactivated 01/27/2018 Recorded influenza virus vaccine, inactivated 01/06/2017 Recorded influenza virus vaccine, inactivated 05/14/2016 Recorded Normal [facility] Comment on above: Result Comment: Elec tronically Signed By: Garett Elizondo\.br\Date and Time Signed: 02/08/24 12:10 EDT Cult,Urineon 02-02-2024 Cult,Urine Specimen Description .CLEAN CATCH URINE Special Requests Site: Urine Culture ESCHERICHIA COLI >100,000 CFU/ML Report Status FINAL 02/02/2024 SUSCEPTIBILITY Organism ESCHERICHIA COLI Method NINO Ampicillin <=2 SUSCEPTIBLE Cefazolin <=4 SUSCEPTIBLE Cefazolin sensitivity results can be used to predict the effectiveness of oral cephalosporins (eg. Cephalexin) in uncomplicated Urinary Tract Infections due to E. coli, K. pneumoniae, and P. mirabilis Ceftriaxone <=0.25 SUSCEPTIBLE ESBL NEGATIVE Gentamicin <=1 SUSCEPTIBLE Levofloxacin <=0.12 SUSCEPTIBLE Nitrofurantoin <=16 SUSCEPTIBLE Piperacillin/Tazobactam <=4 SUSCEPTIBLE Tobramycin <=1 SUSCEPTIBLE Trimethoprim/Sulfa <=20 SUSCEPTIBLE Susceptible [facility] Comment on above: Performed By: #### U RC #### [address] [address] Field Machinist: Abdiaziz Velazquez MD Urinalysis w/ Microon 2023 Bacteria MANY Abnormal NONE [facility] Comment on above: Performed By: #### U AMIC #### [address] [address] Field Machinist: Abdiaziz Velazquez MD Bilirubin, SemiQt,Ur Negative Normal NEG [facility] Comment on above: Performed By: #### U AMIC #### [address] [address] Field Machinist: Abdiaziz Velazquez MD Blood, Urine TRACE Abnormal NEG [facility] Comment on above: Performed By: #### U AMIC #### [address] [address] Field Machinist: Abdiaziz Velazquez MD Casts 10 TO 20 HYALINE Normal 0-8 [facility] Comment on above: Result Comment: Refe rence range defined for non-centrifuged specimen. Performed By: #### U AMIC #### [address] [address] Field Machinist: Abdiaziz Velazquez MD Clarity (U) Cloudy Abnormal CLEAR [facility] Comment on above: Performed By: #### U AMIC #### [address] [address] Field Machinist: Abdiaziz Velazquez MD Color (U) Yellow Normal YEL [facility] Comment on above: Performed By: #### U AMIC #### [address] [address] Field Machinist: Abdiaziz Velazquez MD Epithelial cells LM Ql (Urine sed) 0 TO 2 Normal 0-5 [facility] Comment on above: Performed By: #### U AMIC #### [address] [address] Field Machinist: Abdiaziz Velazquez MD Glucose Ql (U) Negative Normal NEG [facility] Comment on above: Performed By: #### U AMIC #### [address] [address] Field Machinist: Abdiaziz Velazquez MD Ketones Ql (U) Negative Normal NEG [facility] Comment on above: Performed By: #### U AMIC #### [address] [address] Field Machinist: Abdiaziz Velazquez MD Leukocyte esterase Test strip Ql (U) LARGE Abnormal NEG [facility] Comment on above: Performed By: #### U AMIC #### [address] [address] Field Machinist: Abdiaziz Velazquez MD Nitrite,Ur Positive Abnormal NEG [facility] Comment on above: Performed By: #### U AMIC #### [address] [address] Field Machinist: Abdiaziz Velazquez MD PH,Ur 7.0 Normal 5.0-8.0 [facility] Comment on above: Performed By: #### U AMIC #### [address] [address] Field Machinist: Abdiaziz Velazquez MD Protein Ql (U) Negative Normal NEG [facility] Comment on above: Performed By: #### U AMIC #### [address] [id number] Field Machinist: Abdiaziz Velazquez MD Spec. [place],Ur 1.016 Normal 1.005-1.03 0 [facility] Comment on above: Performed By: #### U AMIC #### [address] [address] Field Machinist: Abdiaziz Velazquez MD Urine RBC's 2 TO 5 Normal 0-4 [facility] Comment on above: Result Comment: Refe rence range defined for non-centrifuged specimen. Performed By: #### U AMIC #### [address] [address] Field Machinist: Abdiaziz Velazquez MD Urine WBC's TOO NUMEROUS TO COUNT Normal 0-[address] [facility] Comment on above: Performed By: #### U AMIC #### [address] [address] Field Machinist: Abdiaziz Velazquez MD Urobilinogen,Ur Normal Normal 0.0-1.0 [facility] Comment on above: Performed By: #### U AMIC #### [address] [address] Field Machinist: Abdiaziz Velazquez MD Reminderson 12-24-2023 Reminders Reminders From: Garett Elizondo To: [facility] - Clinical; Sent: 12/24/2023 08:31:56 EDT Show up: 12/24/2023 08:32:00 EDT Subject: Ambulatory Reminder Due Date/Time: 12/25/2023 08:31:00 EDT Cholesterol and triglycerides are a little elevated. encourage her to decrease greasy, fatty foods. increase fruits and vegetables. Results: Date Result Name Ind Value Ref Range 12/23/2023 9:37 WBC 5.8 E9/L (4.0 - 11.0) 12/23/2023 9:37 RBC 4.4 E12/L (4.3 - 5.9) 12/23/2023 9:37 HGB 13.6 gm/dL (12.0 - 16.0) 12/23/2023 9:37 Hct 40.2 % (34.0 - 46.0) 12/23/2023 9:37 MCV 91.2 fL (80.0 - 100.0) 12/23/2023 9:37 MCH 30.9 pg (27.0 - 34.0) 12/23/2023 9:37 MCHC 33.9 gm/dL (31.4 - 36.0) 12/23/2023 9:37 RDW 13.6 % (10.9 - 14.2) 12/23/2023 9:37 Platelet 191.0 E9/L (150.0 - 500.0) 12/23/2023 9:37 MPV 8.9 fL (6.4 - 10.8) 12/23/2023 9:37 Neutro Auto 61.5 % (36.0 - 75.0) 12/23/2023 9:37 Lymph Auto 29.4 % (14.0 - 50.0) 12/23/2023 9:37 Wood Auto 6.8 % (4.0 - 14.0) 12/23/2023 9:37 Eos Auto 1.9 % (0.0 - 8.0) 12/23/2023 9:37 Basophil Auto 0.4 % (0.0 - 2.0) 12/23/2023 9:37 Neutro Absolute 3.6 E9/L (2.0 - 7.5) 12/23/2023 9:37 Lymph Absolute 1.7 E9/L (1.0 - 4.0) 12/23/2023 9:37 Wood Absolute 0.4 E9/L (0.2 - 1.0) 12/23/2023 9:37 Eos Absolute 0.1 E9/L (0.0 - 0.5) 12/23/2023 9:37 Basophil Absolute 0.0 E9/L (0.0 - 0.2) 12/23/2023 9:37 Glucose Lvl 104 mg/dL (55 - 199) 12/23/2023 9:37 BUN 13 mg/dL (5 - 21) 12/23/2023 9:37 Creatinine 0.6 mg/dL (0.5 - 1.3) 12/23/2023 9:37 eGFR 97 mL/min/1.73 m2 (>=59 - ) 12/23/2023 9:37 BUN/Creat Ratio ((H)) 22 (10 - 20) 12/23/2023 9:37 Sodium Lvl 139 mmol/L (135 - 145) 12/23/2023 9:37 Potassium Lvl 4.0 mmol/L (3.5 - 5.3) 12/23/2023 9:37 Chloride 104 mmol/L (101 - 111) 12/23/2023 9:37 CO2 31 mmol/L (21 - 31) 12/23/2023 9:37 AGAP 8 mEq/L (6 - 16) 12/23/2023 9:37 Calcium Lvl 8.9 mg/dL (8.9 - 11.1) 12/23/2023 9:37 Alk Phos 48 Int._Unit/L (21 - 98) 12/23/2023 9:37 ALT 11 Int._Unit/L (6 - 46) 12/23/2023 9:37 AST 16 Int._Unit/L (5 - 43) 12/23/2023 9:37 Total Protein 6.9 gm/dL (6.0 - 7.8) 12/23/2023 9:37 Albumin Lvl 3.9 gm/dL (3.3 - 5.0) 12/23/2023 9:37 Globulin 3.0 gm/dL (1.4 - 4.0) 12/23/2023 9:37 A/G Ratio 1.3 (1.1 - 2.2) 12/23/2023 9:37 Bili Total 0.6 mg/dL (0.0 - 1.1) 12/23/2023 9:37 Chol ((H)) 228 mg/dL (120 - 200) 12/23/2023 9:37 Trig ((H)) 165 mg/dL ( - <=149) 12/23/2023 9:37 HDL 57 mg/dL 12/23/2023 9:37 LDL Direct ((H)) 136 mg/dL ( - <=129) 12/23/2023 9:37 VLDL 33 mg/dL (7 - 40) 12/23/2023 9:37 TSH 2.71 mcIU/mL (0.34 - 5.60) 12/23/2023 9:37 Vitamin D 25 Hydroxy 33.8 ng/mL (30.0 - 100.0) Kimberley called and advised Normal [facility] CBC w/ Auto Diffon 4 Basophils/100 WBC (Bld) 0.4 % Normal 0.0-2.0 [facility] Comment on above: Performed By: #### 2 [id number] #### [facility] [address] [place] [address] Basophils/Leukocyte s Auto (Bld) [Pure # fraction] 0.0 E9/L Normal 0.0-0.2 [facility] Comment on above: Performed By: #### 2 [id number] #### [facility] [address] [place] [address] Eosinophils (Bld) [#/Vol] 0.1 E9/L Normal 0.0-0.5 [facility] Comment on above: Performed By: #### 2 [id number] #### [facility] [address] [place] [address] Eosinophils/100 WBC (Bld) 1.9 % Normal 0.0-8.0 [facility] Comment on above: Performed By: #### 2 [id number] #### [facility] [address] [place] [address] Erythrocyte distribution width (RBC) [Ratio] 13.6 % Normal 10.9-14.2 [facility] Comment on above: Performed By: #### 2 [id number] #### [facility] [address] [place] [address] Hematocrit (Bld) [Volume fraction] 40.2 % Normal 34.0-46.0 [facility] Comment on above: Performed By: #### 2 [id number] #### [facility] [address] [place] [address] Hemoglobin (Bld) [Mass/Vol] 13.6 g/dL Normal 12.0-16.0 [facility] Comment on above: Performed By: #### 2 [id number] #### [facility] [address] [place] [address] Lymphocytes (Bld) [#/Vol] 1.7 E9/L Normal 1.0-4.0 [facility] Comment on above: Performed By: #### 2 [id number] #### [facility] [address] [place] [address] Lymphocytes/100 WBC (Bld) 29.4 % Normal 14.0-50.0 [facility] Comment on above: Performed By: #### 2 [id number] #### [facility] [address] [place] [address] MCH (RBC) [Entitic mass] 30.9 pg Normal 27.0-34.0 [facility] Comment on above: Performed By: #### 2 [id number] #### [facility] [address] [place] [address] MCHC (RBC) [Mass/Vol] 33.9 g/dL Normal 31.4-36.0 [facility] Comment on above: Performed By: #### 2 [id number] #### [facility] [address] [place] [address] MCV (RBC) [Entitic vol] 91.2 fL Normal 80.0-100.0 [facility] Comment on above: Performed By: #### 2 [id number] #### [facility] [address] [place] [address] Monocytes (Bld) [#/Vol] 0.4 E9/L Normal 0.2-1.0 [facility] Comment on above: Performed By: #### 2 [id number] #### [facility] [address] [place] [address] Neutrophils (Bld) [#/Vol] 3.6 E9/L Normal 2.0-7.5 [facility] Comment on above: Performed By: #### 2 [id number] #### [facility] [address] [place] [address] Neutrophils/100 WBC (Bld) 61.5 % Normal 36.0-75.0 [facility] Comment on above: Performed By: #### 2 [id number] #### [facility] [address] [place] [address] Platelet 191.0 E9/L Normal 150.0-500. 0 [facility] Comment on above: Performed By: #### 2 [id number] #### [facility] [address] [place] [address] Platelet mean volume (Bld) [Entitic vol] 8.9 fL Normal 6.4-10.8 [facility] Comment on above: Performed By: #### 2 [id number] #### [facility] [address] [place] [address] RBC (Bld) [#/Vol] 4.4 E12/L Normal 4.3-5.9 [facility] Comment on above: Performed By: #### 2 [id number] #### [facility] [address] [place] [address] WBC corrected for nucl RBC Auto (Bld) [#/Vol] 5.8 E9/L Normal 4.0-11.0 [facility] Comment on above: Performed By: #### 2 [id number] #### [facility] [address] [place] [address] CHEMISTRYOrdered By: SYSTEM SYSTEM on 12-23-2023 25-hydroxyvitamin D3 [Mass/Vol] 33.8 ng/mL Normal 30.0 - 100.0 ng/mL [facility] Albumin [Mass/Vol] 3.9 g/dL Normal 3.3 - 5.0 gm/dL [facility] Albumin/Globulin [Mass ratio] 1.3 {ratio} Normal 1.1 - 2.2 [facility] ALP [Catalytic activity/Vol] 48 [iU]/d Normal 21 - 98 Int._Unit/ L [facility] ALT No additional P-5'-P [Catalytic activity/Vol] 11 [iU]/d Normal 6 - 46 Int._Unit/ L [facility] Anion gap [Moles/Vol] 8 mmol/L Normal 6 - 16 mEq/L [facility] AST [Catalytic activity/Vol] 16 [iU]/d Normal 5 - 43 Int._Unit/ L [facility] Bilirubin [Mass/Vol] 0.6 mg/dL Normal 0.0 - 1.1 mg/dL [facility] Calcium [Mass/Vol] 8.9 mg/dL Normal 8.9 - 11. 1 mg/dL [facility] Chloride [Moles/Vol] 104 mmol/L Normal 101 - 111 mmol/L [facility] Cholesterol [Mass/Vol] 228 mg/dL High 120 - 200 mg/dL [facility] Cholesterol in HDL [Mass/Vol] 57 mg/dL Invalid Interpretation Code [facility] Comment on above: Result Comment: '>= 60 LOW RISK' '<= 40 HIGH RISK' Cholesterol in LDL [Mass/Vol] 136 mg/dL High <=129mg/dL [facility] Cholesterol in VLDL [Mass/Vol] 33 mg/dL Normal 7 - 40 mg/dL [facility] CO2 [Moles/Vol] 31 mmol/L Normal 21 - 31 mmol/L [facility] Creatinine [Mass/Vol] 0.6 mg/dL Normal 0.5 - 1.3 mg/dL [facility] eGFR 97 mL/min/1.73 m2 Normal >=59mL/min /1.73 m2 [facility] Globulin (S) [Mass/Vol] 3.0 g/dL Normal 1.4 - 4.0 gm/dL [facility] Glucose [Mass/Vol] 104 mg/dL Normal 55 - 199 mg/dL [facility] Potassium [Moles/Vol] 4.0 mmol/L Normal 3.5 - 5.3 mmol/L [facility] Protein [Mass/Vol] 6.9 g/dL Normal 6.0 - 7.8 gm/dL [facility] Sodium [Moles/Vol] 139 mmol/L Normal 135 - 145 mmol/L [facility] Triglyceride [Mass/Vol] 165 mg/dL High <=149mg/dL [facility] TSH Qn 2.71 m[IU]/L Normal 0.34 - 5.60 mcIU/mL [facility] Urea nitrogen [Mass/Vol] 13 mg/dL Normal 5 - 21 mg/dL [facility] Urea nitrogen/Creatinine [Mass ratio] 22 mg/mg High 10 - 20 [facility] CMPon 12-23-2023 Albumin [Mass/Vol] 3.9 g/dL Normal 3.3-5.0 [facility] Comment on above: Performed By: #### 2 [id number] #### [facility] [address] [place] [address] Albumin/Globulin (S) [Mass conc ratio] 1.3 Normal 1.1-2.2 [facility] Comment on above: Performed By: #### 2 [id number] #### [facility] [address] [place] [address] ALP [Catalytic activity/Vol] 48 Int._Unit/L Normal 21-98 [facility] Comment on above: Performed By: #### 2 [id number] #### [facility] [address] [place] [address] ALT No additional P-5'-P [Catalytic activity/Vol] 11 Int._Unit/L Normal 6-46 [facility] Comment on above: Performed By: #### 2 [id number] #### [facility] [address] [place] [address] Anion gap [Moles/Vol] 8 mmol/L Normal 6-16 [facility] Comment on above: Performed By: #### 2 [id number] #### [facility] [address] [place] [address] AST [Catalytic activity/Vol] 16 Int._Unit/L Normal 5-43 [facility] Comment on above: Performed By: #### 2 [id number] #### [facility] [address] [place] [address] Bilirubin [Mass/Vol] 0.6 mg/dL Normal 0.0-1.1 [facility] Comment on above: Performed By: #### 2 [id number] #### [facility] [address] [place] [address] Calcium [Mass/Vol] 8.9 mg/dL Normal 8.9-11.1 [facility] Comment on above: Performed By: #### 2 [id number] #### [facility] [address] [place] [address] Chloride [Moles/Vol] 104 mmol/L Normal 101-111 [facility] Comment on above: Performed By: #### 2 [id number] #### [facility] [address] [place] [address] CO2 [Moles/Vol] 31 mmol/L Normal 21-31 [facility] Comment on above: Performed By: #### 2 [id number] #### [facility] [address] [place] [address] Creatinine [Mass/Vol] 0.6 mg/dL Normal 0.5-1.3 [facility] Comment on above: Performed By: #### 2 [id number] #### [facility] [address] [place] [address] Globulin (S) [Mass/Vol] 3.0 g/dL Normal 1.4-4.0 [facility] Comment on above: Performed By: #### 2 [id number] #### [facility] [address] [place] [address] Glucose [Mass/Vol] 104 mg/dL Normal 55-199 [facility] Comment on above: Performed By: #### 2 [id number] #### [facility] [address] [place] [address] Potassium [Moles/Vol] 4.0 mmol/L Normal 3.5-5.3 [facility] Comment on above: Performed By: #### 2 [id number] #### [facility] [address] [place] [address] Protein [Mass/Vol] 6.9 g/dL Normal 6.0-7.8 [facility] Comment on above: Performed By: #### 2 [id number] #### [facility] [address] [place] [address] Sodium [Moles/Vol] 139 mmol/L Normal 135-145 [facility] Comment on above: Performed By: #### 2 [id number] #### [facility] [address] [place] [address] Urea nitrogen [Mass/Vol] 13 mg/dL Normal 5-21 [facility] Comment on above: Performed By: #### 2 [id number] #### [facility] [address] [place] [address] Urea nitrogen/Creatinine [Mass ratio] 22 No Units High 10-20 [facility] Comment on above: Performed By: #### 2 [id number] #### [facility] [address] [place] [address] HEMATOLOGYOrdered By: SYSTEM SYSTEM on 12-23-2023 Basophils/100 WBC (Bld) 0.4 % Normal 0.0 - 2.0 % [facility] Basophils/Leukocyte s Auto (Bld) [Pure # fraction] 0.0 E9/L Normal 0.0 - 0.2 E9/L [facility] Eosinophils (Bld) [#/Vol] 0.1 E9/L Normal 0.0 - 0.5 E9/L [facility] Eosinophils/100 WBC (Bld) 1.9 % Normal 0.0 - 8.0 % [facility] Erythrocyte distribution width (RBC) [Ratio] 13.6 % Normal 10.9 - 14.2 % [facility] Hematocrit (Bld) [Volume fraction] 40.2 % Normal 34.0 - 46.0 % [facility] Hemoglobin (Bld) [Mass/Vol] 13.6 g/dL Normal 12.0 - 16.0 gm/dL [facility] Lymphocytes (Bld) [#/Vol] 1.7 E9/L Normal 1.0 - 4.0 E9/L [facility] Lymphocytes/100 WBC (Bld) 29.4 % Normal 14.0 - 50.0 % [facility] MCH (RBC) [Entitic mass] 30.9 pg Normal 27.0 - 34.0 pg [facility] MCHC (RBC) [Mass/Vol] 33.9 g/dL Normal 31.4 - 36.0 gm/dL [facility] MCV (RBC) [Entitic vol] 91.2 fL Normal 80.0 - 100.0 fL [facility] Monocytes (Bld) [#/Vol] 0.4 E9/L Normal 0.2 - 1.0 E9/L [facility] Monocytes/100 WBC (Bld) 6.8 % Normal 4.0 - 14.0 % [facility] Neutrophils (Bld) [#/Vol] 3.6 E9/L Normal 2.0 - 7.5 E9/L [facility] Neutrophils/100 WBC (Bld) 61.5 % Normal 36.0 - 75.0 % [facility] Platelet 191.0 E9/L Normal 150.0 - 500.0 E9/L [facility] Platelet mean volume (Bld) [Entitic vol] 8.9 fL Normal 6.4 - 10.8 fL [facility] RBC (Bld) [#/Vol] 4.4 E12/L Normal 4.3 - 5.9 E12/L [facility] WBC corrected for nucl RBC Auto (Bld) [#/Vol] 5.8 E9/L Normal 4.0 - 11.0 E9/L [facility] Lipid Panelon 12-23-2023 Cholesterol [Mass/Vol] 228 mg/dL High 120-200 [facility] Comment on above: Performed By: #### 2 [id number] #### [facility] [address] [place] [address] Cholesterol in HDL [Mass/Vol] 57 mg/dL Invalid Interpretation Code [facility] Comment on above: Result Comment: '>= 60 LOW RISK' '<= 40 HIGH RISK' Performed By: #### 2 [id number] #### [facility] [address] [place] [address] Cholesterol in LDL [Mass/Vol] 136 mg/dL High <=129 [facility] Comment on above: Performed By: #### 2 [id number] #### [facility] [address] [place] [address] Cholesterol in VLDL [Mass/Vol] 33 mg/dL Normal 7-40 [facility] Comment on above: Performed By: #### 2 [id number] #### [facility] [address] [place] [address] Triglyceride [Mass/Vol] 165 mg/dL High <=149 [facility] Comment on above: Performed By: #### 2 [id number] #### [facility] [address] [place] [address] TSHon 12-23-2023 TSH Qn 2.71 m[IU]/L Normal 0.34-5.60 [facility] Comment on above: Performed By: #### 2 [id number] #### [facility] [address] [place] [address] Vitamin D 25 Hydroxyon 12-22 25-hydroxyvitamin D3 [Mass/Vol] 33.8 ng/mL Normal 30.0-100.0 [facility] Comment on above: Performed By: #### 5 [id number] #### [facility] [address] [place] [address] eGFRon 12-23-2023 eGFR 97 mL/min/1.73 m2 Normal >=59 [facility] Comment on above: Order Comment: Order added by Discern Expert. Performed By: #### 1 [id number] #### [facility] [address] [place] [address] Laboratory - Chemistry and C hemistry - challengeon 08-20-2023 Bilirubin Ql (U) Negative [facility] Glucose (U) [Mass/Vol] Negative [facility] [...] No Panel Informationon 08-19 Urine Occult Blood moderate [facility] Laboratory - Chemistry and C hemistry - challengeon 07-30-2023 Bilirubin Ql (U) Negative [facility] Glucose (U) [Mass/Vol] Negative [facility] [...] Panel Informationon 07-29 Urine Occult Blood large [facility] Urine culture routineOrdered By: Mary Cortes on 07-30-2023 Bacteria identified Cx Nom (U) Escherichia coli [facility] Urinalysis - AUTOMATEDon Appearance (U) cloudy [employer] Other Bilirubin Ql (U) Negative [employer] Other Color (U) orange [employer] [facility] Other Glucose Ql (U) 100 [employer] Other Hemoglobin Ql (U) SURF [employer] Other Ketones Ql (U) Negative [employer] Other Leukocyte esterase Test strip Ql (U) large [facility] Other Nitrite Ql (U) Positive [employer] Other pH (U) 6.0 [pH] [facility] Other Protein Ql (U) 100 [employer] Other Specific gravity (U) [Rel density] 1.020 [facility] Other Urobilinogen (U) [Mass/Vol] 1.0 mg/dL [facility] Other Urinalysis - AUTOMATED [facility] Other Urinalysis - AUTOMATEDon Appearance (U) cloudy [employer] Other Bilirubin Ql (U) Negative [employer] Other Color (U) yellow [facility] Other Glucose Ql (U) Negative [employer] Other Hemoglobin Ql (U) large [employer] Other Ketones Ql (U) Negative [employer] Other Leukocyte esterase Test strip Ql (U) small [facility] Other Nitrite Ql (U) Positive [employer] Other pH (U) 6.5 [pH] [facility] Other Protein Ql (U) 300 [employer] Other Specific gravity (U) [Rel density] 1.025 [facility] Other Urobilinogen (U) [Mass/Vol] 0.2 mg/dL [facility] Other Urinalysis - AUTOMATED [facility] Other Urine Cultureon 02-11-2023 Urine Culture >100,000 [facility] Other Urine Culture <16 Susceptible [employer] Other Urine Culture <8/4 Susceptible [employer] Other Urine Culture >16 Resistant [facility] Other Urine Culture <4 Susceptible [employer] Other Urine Culture <2 Susceptible [employer] Other Urine Culture <1 Susceptible [employer] Other Urine Culture <0.25 Susceptible [employer] Other Urine Culture <0.5 Susceptible [employer] Other Urine Culture <32 Susceptible [employer] Other Urine Culture >8 Resistant [employer] [facility] Other Urine Culture <0.5/9.5 [employer] Other Urine culture routineOrdered By: Mary Cortes on 02-11-2023 Bacteria identified Cx Nom (U) Escherichia coli [facility] Urinalysis - AUTOMATEDon Appearance (U) cloudy [employer] Other Bilirubin Ql (U) Negative [employer] Other Color (U) yellow [facility] Other Glucose Ql (U) Negative [employer] Other Hemoglobin Ql (U) Trace-intact [facility] Other Ketones Ql (U) Negative [employer] Other Leukocyte esterase Test strip Ql (U) small [facility] Other Nitrite Ql (U) Negative [employer] Other pH (U) 6.0 [pH] [facility] Other Protein Ql (U) Negative [employer] Other Specific gravity (U) [Rel density] 1.025 [facility] Other Urobilinogen (U) [Mass/Vol] 0.2 mg/dL [facility] Other Urinalysis - AUTOMATED [facility] Other US CAROTID ART BILon 023 US CAROTID ART CARLOTA EXAMINATION: US VELOZ TID ART CARLOTA HISTORY: Hemorrhage of bilateral retinas COMPARISON: No [...] MIHAI MAI Date: 2022-09-03 14:32 Normal [facility] CBC AUTO DIFFon 07-02-2022 BASO # 0.0 103/ul Normal 0.0-0.1 [facility] Comment on above: Performed By: #### C MP HSTROPN, BNP #### [facility] [address] [place] [address] Dr. Ivett Scott Basophils/100 WBC (Bld) 0.6 % Normal 0.2-2.0 [facility] Comment on above: Performed By: #### C MP HSTROPN, BNP #### [facility] [address] [place] [address] Dr. Ivett Scott EO # 0.3 103/ul Normal 0.0-0.7 [facility] Comment on above: Performed By: #### C MP HSTROPN, BNP #### [facility] [address] [place] [address] Dr. Ivett Scott Eosinophils/100 WBC (Bld) 4.1 % Normal 0.9-7.0 [facility] Comment on above: Performed By: #### C ASHVIN HSTROPN, BNP #### [facility] [address] [place] [address] Dr. Ivett Scott Erythrocyte distribution width (RBC) [Ratio] 13.1 % Normal 11.0-15.0 [facility] Comment on above: Performed By: #### C ASHVIN HSTROPN, BNP #### [facility] [address] [place] [address] Dr. Ivett Scott Hematocrit (Bld) [Volume fraction] 40.9 % Normal 36.0-48.0 [facility] Comment on above: Performed By: #### C MP, HSTROPN, BNP #### [facility] [address] [place] [address] Dr. Ivett Scott Hemoglobin (Bld) [Mass/Vol] 13.4 g/dL Normal 12.0-16.0 [facility] Comment on above: Performed By: #### C MP, HSTROPN, BNP #### [facility] [address] [place] [address] Dr. Ivett Scott IG # 0.02 10e3/ul Normal 0.00-0.03 [facility] Comment on above: Performed By: #### C MP, HSTROPN, BNP #### [facility] [address] [place] [address] Dr. Ivett Scott IG % 0.3 % Normal 0.0-0.5 [facility] Comment on above: Performed By: #### C MP, HSTROPN, BNP #### [facility] [address] [place] [address] Dr. Ivett Scott LYMPH # 2.0 103/ul Normal 1.2-3.8 [facility] Comment on above: Performed By: #### C MP, HSTROPN, BNP #### [facility] [address] [place] [address] Dr. Ivett Scott Lymphocytes/100 WBC (Bld) 31.6 % Normal 20.5-60.0 [facility] Comment on above: Performed By: #### C MP, HSTROPN, BNP #### [facility] [address] [place] [address] Dr. Ivett Scott MANUAL DIFF REQ NO Normal [facility] Comment on above: Performed By: #### C MP, HSTROPN, BNP #### [facility] [address] [place] [address] Dr. Ivett Scott MCH (RBC) [Entitic mass] 29.5 pg Normal 26.7-34.0 [facility] Comment on above: Performed By: #### C MP, HSTROPN, BNP #### [facility] [address] [place] [address] Dr. Ivett Scott MCHC (RBC) [Mass/Vol] 32.8 g/dL Normal 29.9-35.2 [facility] Comment on above: Performed By: #### C MP, HSTROPN, BNP #### [facility] [address] [place] [address] Dr. Ivett Scott MCV (RBC) [Entitic vol] 90.1 fL Normal 81.0-99.0 [facility] Comment on above: Performed By: #### C MP, HSTROPN, BNP #### [facility] [address] [place] [address] Dr. Ivett Scott MONO # 0.5 103/ul Normal 0.3-0.8 [facility] Comment on above: Performed By: #### C MP, HSTROPN, BNP #### [facility] [address] [place] [address] Dr. Ivett Scott Monocytes/100 WBC (Bld) 8.0 % Normal 1.7-12.0 [facility] Comment on above: Performed By: #### C MP, HSTROPN, BNP #### [facility] [address] [place] [address] Dr. Ivett Scott NEUT # 3.5 103/ul Normal 1.4-6.5 [facility] Comment on above: Performed By: #### C MP, HSTROPN, BNP #### [facility] [address] [place] [address] Dr. Ivett Scott Neutrophils/100 WBC (Bld) 55.4 % Normal 43.0-75.0 [facility] Comment on above: Performed By: #### C MP, HSTROPN, BNP #### [facility] [address] [place] [address] Dr. Ivett Scott Platelet mean volume (Bld) [Entitic vol] 9.7 fL Normal 9.5-13.5 [facility] Comment on above: Performed By: #### C MP, HSTROPN, BNP #### [facility] [address] [place] [address] Dr. Ivett Scott PLT 170 103/ul Normal 150-450 [facility] Comment on above: Performed By: #### C ASHVIN HSTROPN, BNP #### [facility] [address] [address] [address] Ivett Scott RBC 4.54 106/ul Normal 4.20-5.40 [facility] Comment on above: Performed By: #### C ASHVIN HSTROPN, BNP #### [facility] [address] [address] [address] Ivett Scott WBC 6.4 103/ul Normal 4.0-11.0 [facility] Comment on above: Performed By: #### C ASHVIN HSTROPN, BNP #### [facility] [address] [place] [address] Dr. Ivett Scott GLYCOHEMOGLOBIN A1Con 2022 ADA RECOMMENDATION SEE BELOW Normal [facility] Comment on above: Result Comment: ADA RECOMMENDED LIMIT 4.0 - 6.0 ADA THERAPEUTIC TARGET < 7.0 ACTION SUGGESTED > 7.0 Performed By: #### A 1C #### [facility] [address] [place] [address] Dr. Ivett Scott Glucose [Mass/Vol] 111 mg/dL Normal [facility] Comment on above: Performed By: #### A 1C #### [facility] [address] [place] [address] Dr. Ivett Scott HbA1c (Bld) [Mass fraction] 5.5 % Normal 4.5-6.2 [facility] Comment on above: Performed By: #### A 1C #### [facility] [address] [place] [address] Dr. Ivett Scott PROF CHEM 8 (BAS METB)on Anion gap [Moles/Vol] 13.4 mmol/L Normal [facility] Comment on above: Performed By: #### B MP #### [facility] [address] [place] [address] Dr. Ivett Scott Calcium [Mass/Vol] 9.1 mg/dL Normal 8.5-10.1 [facility] Comment on above: Performed By: #### B MP #### [facility] [address] [address] [address] Ivett Scott Chloride [Moles/Vol] 106 mmol/L Normal 98-107 [facility] Comment on above: Performed By: #### B MP #### [facility] [address] [address] [address] Ivett Scott CO2 [Moles/Vol] 27.5 mmol/L Normal 21.0-32.0 [facility] Comment on above: Performed By: #### B MP #### [facility] [address] [address] [address] Ivett Scott Creatinine [Mass/Vol] 0.48 mg/dL Critically low 0.55-1.02 [facility] Comment on above: Performed By: #### B MP #### [facility] [address] [place] [address] Dr. Ivett Scott EGFR-AF SPANISH >60 Normal >=60 [facility] Comment on above: Performed By: #### B MP #### [facility] [address] [address] [address] Ivett Scott EGFR-NON AF SPANISH >60 Normal >=60 [facility] Comment on above: Performed By: #### B MP #### [facility] [address] [address] [address] Ivett Scott Glucose [Mass/Vol] 106 mg/dL Normal 74-106 [facility] Comment on above: Performed By: #### B MP #### [facility] [address] [address] [address] Ivett Scott Potassium [Moles/Vol] 3.9 mmol/L Normal 3.5-5.1 [facility] Comment on above: Performed By: #### B MP #### [facility] [address] [address] [address] Ivett Scott Sodium [Moles/Vol] 143 mmol/L Normal 136-145 [facility] Comment on above: Performed By: #### B MP #### [facility] [address] [address] [address] Ivett Scott Urea nitrogen [Mass/Vol] 12.0 mg/dL Normal 7.0-18.0 [facility] Comment on above: Performed By: #### B MP #### [facility] [address] [place] [address] Dr. Ivett Scott Urea nitrogen/Creatinine [Mass ratio] 25.0 mg/mg Normal [facility] Comment on above: Performed By: #### B MP #### [facility] [address] [place] [address] Dr. Ivett Scott CBC AUTO DIFFon 02-24-2022 BASO # 0.0 103/ul Normal 0.0-0.1 [facility] Comment on above: Performed By: #### C BC #### [facility] [address] [place] [address] Dr. Ivett Scott Basophils/100 WBC (Bld) 0.6 % Normal 0.2-2.0 [facility] Comment on above: Performed By: #### C BC #### [facility] [address] [place] [address] Dr. Ivett Scott EO # 0.2 103/ul Normal 0.0-0.7 [facility] Comment on above: Performed By: #### C BC #### [facility] [address] [place] [address] Dr. Ivett Scott Eosinophils/100 WBC (Bld) 3.1 % Normal 0.9-7.0 [facility] Comment on above: Performed By: #### C BC #### [facility] [address] [place] [address] Dr. Ivett Scott Erythrocyte distribution width (RBC) [Ratio] 13.2 % Normal 11.0-15.0 [facility] Comment on above: Performed By: #### C BC #### [facility] [address] [place] [address] Dr. Ivett Scott Hematocrit (Bld) [Volume fraction] 40.2 % Normal 36.0-48.0 [facility] Comment on above: Performed By: #### C BC #### [facility] [address] [place] [address] Dr. Ivett Scott Hemoglobin (Bld) [Mass/Vol] 13.2 g/dL Normal 12.0-16.0 [facility] Comment on above: Performed By: #### C BC #### [facility] [address] [place] [address] Dr. Ivett Scott IG # 0.01 10e3/ul Normal 0.00-0.03 [facility] Comment on above: Performed By: #### C BC #### [facility] [address] [place] [address] Dr. Ivett Scott IG % 0.2 % Normal 0.0-0.5 [facility] Comment on above: Performed By: #### C BC #### [facility] [address] [place] [address] Dr. Ivett Scott LYMPH # 1.7 103/ul Normal 1.2-3.8 [facility] Comment on above: Performed By: #### C BC #### [facility] [address] [place] [address] Dr. Ivett Scott Lymphocytes/100 WBC (Bld) 33.6 % Normal 20.5-60.0 [facility] Comment on above: Performed By: #### C BC #### [facility] [address] [place] [address] Dr. Ivett Scott MANUAL DIFF REQ NO Normal [facility] Comment on above: Performed By: #### C BC #### [facility] [address] [place] [address] Dr. Ivett Scott MCH (RBC) [Entitic mass] 29.5 pg Normal 26.7-34.0 [facility] Comment on above: Performed By: #### C BC #### [facility] [address] [place] [address] Dr. Ivett Scott MCHC (RBC) [Mass/Vol] 32.8 g/dL Normal 29.9-35.2 [facility] Comment on above: Performed By: #### C BC #### [facility] [address] [place] [address] Dr. Ivett Scott MCV (RBC) [Entitic vol] 89.9 fL Normal 81.0-99.0 [facility] Comment on above: Performed By: #### C BC #### [facility] [address] [place] [address] Dr. Ivett Scott MONO # 0.4 103/ul Normal 0.3-0.8 [facility] [facility] Comment on above: Performed By: #### C BC #### [facility] [address] [place] [address] Dr. Ivett Scott Monocytes/100 WBC (Bld) 7.8 % Normal 1.7-12.0 [facility] Comment on above: Performed By: #### C BC #### [facility] [address] [place] [address] Dr. Ivett Scott NEUT # 2.8 103/ul Normal 1.4-6.5 [facility] Comment on above: Performed By: #### C BC #### [facility] [address] [place] [address] Dr. Ivett Scott Neutrophils/100 WBC (Bld) 54.7 % Normal 43.0-75.0 [facility] Comment on above: Performed By: #### C BC #### [facility] [address] [place] [address] Dr. Ivett Scott Platelet mean volume (Bld) [Entitic vol] 9.9 fL Normal 9.5-13.5 [facility] Comment on above: Performed By: #### C BC #### [facility] [address] [place] [address] Dr. Ivett Scott PLT 191 103/ul Normal 150-450 [facility] Comment on above: Performed By: #### C BC #### [facility] [address] [place] [address] Dr. Ivett Scott RBC 4.47 106/ul Normal 4.20-5.40 [facility] Comment on above: Performed By: #### C BC #### [facility] [address] [place] [address] Dr. Ivett Scott WBC 5.2 103/ul Normal 4.0-11.0 [facility] Comment on above: Performed By: #### C BC #### [facility] [address] [address] [address] Ivett Scott LIPID PROFILEon 02-24-2022 CHOL-HDL RATIO NORM SEE BELOW Normal [facility] Comment on above: Result Comment: 3.3 - 4.4 LOW RISK 4.4 - 7.1 AVERAGE RISK 7.1 - 11.0 MODERATE RISK >11.0 HIGH RISK Performed By: #### C MP, LIPID #### [facility] [address] [address] [address] Ivett Scott Cholesterol [Mass/Vol] 231 mg/dL Critically high <=200 [facility] Comment on above: Performed By: #### C MP, LIPID #### [facility] [address] [address] [address] Ivett Scott Cholesterol in HDL [Mass/Vol] 61 mg/dL Critically high 40-60 [facility] Comment on above: Performed By: #### C MP, LIPID #### [facility] [address] [address] [address] Ivett Scott Cholesterol in LDL [Mass/Vol] 140.0 mg/dL Normal [facility] Comment on above: Performed By: #### C MP, LIPID #### [facility] [address] [address] [address] Ivett Scott Cholesterol.total/C holesterol in HDL [Mass ratio] 3.8 {ratio} Normal [facility] Comment on above: Performed By: #### C MP, LIPID #### [facility] [address] [address] [address] Ivett Scott HDL NORMAL > or = 60 mg/dl - LO W CARDIOVASCULAR RISK <40 mg/dl - HIGH CARDIOVASCULAR RISK Normal [facility] Comment on above: Performed By: #### C MP, LIPID #### [facility] [address] [address] [address] Ivett Scott LDL CALC NORMAL SEE BELOW Normal [facility] Comment on above: Result Comment: <100 mg/dl OPTIMAL 100 - 129 mg/dl NEAR OR ABOVE OPTIMAL 130 - 159 mg/dl BORDERLINE HIGH 160 - 189 mg/dl HIGH >190 mg/dl VERY HIGH Performed By: #### C MP, LIPID #### [facility] [address] [place] [address] Dr. Ivett Scott Triglyceride [Mass/Vol] 150 mg/dL Normal <=150 [facility] Comment on above: Performed By: #### C MP, LIPID #### [facility] [address] [place] [address] Dr. Ivett Scott VLDL CALC 30.0 mg/dL Normal [facility] Comment on above: Performed By: #### C MP, LIPID #### [facility] [address] [place] [address] Dr. Ivett Scott PROF 14(COMP METB)on 022 Albumin [Mass/Vol] 3.4 g/dL Normal 3.4-5.0 [facility] Comment on above: Performed By: #### C MP, HSTROPN, BNP #### [facility] [address] [place] [address] Dr. Ivett Scott Albumin/Globulin [Mass ratio] 0.9 {ratio} Normal [facility] Comment on above: Performed By: #### C MP, HSTROPN, BNP #### [facility] [address] [place] [address] Dr. Ivett Scott ALP [Catalytic activity/Vol] 56 U/L Normal 46-116 [facility] Comment on above: Performed By: #### C MP, HSTROPN, BNP #### [facility] [address] [place] [address] Dr. Ivett Scott ALT [Catalytic activity/Vol] 21 U/L Normal 14-59 [facility] Comment on above: Performed By: #### C MP, HSTROPN, BNP #### [facility] [address] [place] [address] Dr. Ivett Scott Anion gap [Moles/Vol] 11.5 mmol/L Normal [facility] Comment on above: Performed By: #### C MP, HSTROPN, BNP #### [facility] [address] [place] [address] Dr. Ivett Scott AST [Catalytic activity/Vol] 22 U/L Normal 15-37 [facility] Comment on above: Performed By: #### C MP, HSTROPN, BNP #### [facility] [address] [place] [address] Dr. Ivett Scott Bilirubin [Mass/Vol] 0.5 mg/dL Normal 0.2-1.0 [facility] Comment on above: Performed By: #### C MP, HSTROPN, BNP #### [facility] [address] [place] [address] Dr. Ivett Scott Calcium [Mass/Vol] 8.8 mg/dL Normal 8.5-10.1 [facility] Comment on above: Performed By: #### C MP, HSTROPN, BNP #### [facility] [address] [place] [address] Dr. Ivett Scott Chloride [Moles/Vol] 104 mmol/L Normal 98-107 [facility] Comment on above: Performed By: #### C MP, HSTROPN, BNP #### [facility] [address] [place] [address] Dr. Ivett Scott CO2 [Moles/Vol] 26.3 mmol/L Normal 21.0-32.0 [facility] Comment on above: Performed By: #### C MP, HSTROPN, BNP #### [facility] [address] [place] [address] Dr. Ivett Scott Creatinine [Mass/Vol] 0.57 mg/dL Normal 0.55-1.02 [facility] Comment on above: Performed By: #### C MP, HSTROPN, BNP #### [facility] [address] [place] [address] Dr. Ivett Scott EGFR-AF SPANISH >60 Normal >=60 [facility] Comment on above: Performed By: #### C MP, HSTROPN, BNP #### [facility] [address] [place] [address] Dr. Ivtet Scott EGFR-NON AF SPANISH >60 Normal >=60 [facility] Comment on above: Performed By: #### C MP, HSTROPN, BNP #### [facility] [address] [address] [address] Ivett Scott Globulin (S) [Mass/Vol] 3.6 g/dL Normal [facility] Comment on above: Performed By: #### C MP, HSTROPN, BNP #### [facility] [address] [address] [address] Ivett Scott Glucose [Mass/Vol] 98 mg/dL Normal 74-106 [facility] Comment on above: Performed By: #### C MP, HSTROPN, BNP #### [facility] [address] [place] [address] Dr. Ivett Scott Potassium [Moles/Vol] 3.8 mmol/L Normal 3.5-5.1 [facility] Comment on above: Performed By: #### C MP, HSTROPN, BNP #### [facility] [address] [place] [address] Dr. Ivett Scott Protein [Mass/Vol] 7.0 g/dL Normal 6.4-8.2 [facility] Comment on above: Performed By: #### C MP, HSTROPN, BNP #### [facility] [address] [place] [address] Dr. Ivett Scott Sodium [Moles/Vol] 138 mmol/L Normal 136-145 [facility] Comment on above: Performed By: #### C MP, HSTROPN, BNP #### [facility] [address] [place] [address] Dr. Ivett Scott Urea nitrogen [Mass/Vol] 12.0 mg/dL Normal 7.0-18.0 [facility] Comment on above: Performed By: #### C MP, HSTROPN, BNP #### [facility] [address] [place] [address] Dr. Ivett Scott Urea nitrogen/Creatinine [Mass ratio] 21.1 mg/mg Normal [facility] Comment on above: Performed By: #### C MP, HSTROPN, BNP #### [facility] [address] [place] [address] Dr. Ivett Scott CULTURE URINEon 01-17-2022 CULTURE [...] <=0.12 S F Nitrofurantoin <=16 S F Trimethoprim/Sulfamethoxazol e <=20 S F Normal [facility] Comment on above: Performed By: #### C MP, HSTROPN, BNP #### [facility] [address] [place] [address] Dr. Ivett Scott UA RANDOMon 01-14-2022 Bilirubin Ql (U) Negative Normal NEGATIVE [facility] Comment on above: Performed By: #### U A #### [facility] [address] [place] [address] Dr. Ivett Scott Clarity (U) CLOUDY Abnormal CLEAR [facility] Comment on above: Performed By: #### U A #### [facility] [address] [place] [address] Dr. Ivett Scott Color (U) LT. YELLOW Normal YELLOW [facility] Comment on above: Performed By: #### U A #### [facility] [address] [place] [address] Dr. Ivett Scott Glucose Ql (U) Negative Normal NEGATIVE [facility] Comment on above: Performed By: #### U A #### [facility] [address] [place] [address] Dr. Ivett Scott Hemoglobin Ql (U) LARGE Abnormal NEGATIVE [facility] Comment on above: Performed By: #### U A #### [facility] [address] [place] [address] Dr. Ivett Scott Ketones Ql (U) TRACE Abnormal NEGATIVE [facility] Comment on above: Performed By: #### U A #### [facility] [address] [place] [address] Dr. Ivett Scott LEUKOCYTES MODERATE Abnormal NEGATIVE [facility] Comment on above: Performed By: #### U A #### [facility] [address] [place] [address] Dr. Ivett Scott Nitrite Ql (U) Positive Abnormal NEGATIVE [facility] Comment on above: Performed By: #### U A #### [facility] [address] [place] [address] Dr. Ivett Scott pH (U) 6.5 [pH] Normal 5-9 [facility] Comment on above: Performed By: #### U A #### [facility] [address] [place] [address] Dr. Ivett Scott SPEC GRAVITY 1.020 Normal 1.005-<=1. 025 [facility] Comment on above: Performed By: #### U A #### [facility] [address] [place] [address] Dr. Ivett Scott UA PROTEIN 100 mg/dl Abnormal NEGATIVE/ TRACE [facility] Comment on above: Performed By: #### U A #### [facility] [address] [place] [address] Dr. Ivett Scott Urobilinogen Qn (U) 0.2 {Mireya'U}/dL Normal 0.2 - 1. 0 [facility] Comment on above: Performed By: #### U A #### [facility] [address] [place] [address] Dr. Ivett Scott BNPon 12-26-2021 Natriuretic peptide B (Bld) [Mass/Vol] 185.0 pg/mL Normal <=900.0 [facility] Comment on above: Performed By: #### C MP, HSTROPN, BNP #### [facility] [address] [place] [address] Dr. Ivett Scott CBC AUTO DIFFon 12-26-2021 BASO # 0.0 103/ul Normal 0.0-0.1 [facility] Comment on above: Performed By: #### C BC #### [facility] [address] [address] [address] Ivett Scott Basophils/100 WBC (Bld) 0.4 % Normal 0.2-2.0 [facility] Comment on above: Performed By: #### C BC #### [facility] [address] [address] [address] Ivett Scott EO # 0.0 103/ul Normal 0.0-0.7 [facility] Comment on above: Performed By: #### C BC #### [facility] [address] [place] [address] Dr. Ivett Scott Eosinophils/100 WBC (Bld) 0.0 % Critically low 0.9-7.0 [facility] Comment on above: Performed By: #### C BC #### [facility] [address] [place] [address] Dr. Ivett Scott Erythrocyte distribution width (RBC) [Ratio] 13.1 % Normal 11.0-15.0 [facility] Comment on above: Performed By: #### C BC #### [facility] [address] [place] [address] Dr. Ivett Scott Hematocrit (Bld) [Volume fraction] 41.0 % Normal 36.0-48.0 [facility] Comment on above: Performed By: #### C BC #### [facility] [address] [place] [address] Dr. Ivett Scott Hemoglobin (Bld) [Mass/Vol] 13.5 g/dL Normal 12.0-16.0 [facility] Comment on above: Performed By: #### C BC #### [facility] [address] [place] [address] Dr. Ivett Scott IG # 0.04 10e3/ul Critically high 0.00-0.03 [facility] Comment on above: Performed By: #### C BC #### [facility] [address] [place] [address] Dr. Ivett Scott IG % 0.6 % Critically high 0.0-0.5 [facility] Comment on above: Performed By: #### C BC #### [facility] [address] [address] [address] Ivett Scott LYMPH # 0.9 103/ul Critically low 1.2-3.8 [facility] Comment on above: Performed By: #### C BC #### [facility] [address] [address] [address] Ivett Scott Lymphocytes/100 WBC (Bld) 13.0 % Critically low 20.5-60.0 [facility] Comment on above: Performed By: #### C BC #### [facility] [address] [address] [address] Ivett Scott MANUAL DIFF REQ NO Normal [facility] Comment on above: Performed By: #### C BC #### [facility] [address] [place] [address] Dr. Ivett Scott MCH (RBC) [Entitic mass] 30.1 pg Normal 26.7-34.0 [facility] Comment on above: Performed By: #### C BC #### [facility] [address] [place] [address] Dr. Ivett Scott MCHC (RBC) [Mass/Vol] 32.9 g/dL Normal 29.9-35.2 [facility] Comment on above: Performed By: #### C BC #### [facility] [address] [place] [address] Dr. Ivett Scott MCV (RBC) [Entitic vol] 91.3 fL Normal 81.0-99.0 [facility] Comment on above: Performed By: #### C BC #### [facility] [address] [place] [address] Dr. Ivett Scott MONO # 0.2 103/ul Critically low 0.3-0.8 [facility] Comment on above: Performed By: #### C BC #### [facility] [address] [place] [address] Dr. Ivett Scott Monocytes/100 WBC (Bld) 3.0 % Normal 1.7-12.0 [facility] Comment on above: Performed By: #### C BC #### [facility] [address] [place] [address] Dr. Ivett Scott NEUT # 5.8 103/ul Normal 1.4-6.5 [facility] Comment on above: Performed By: #### C BC #### [facility] [address] [place] [address] Dr. Ivett Scott Neutrophils/100 WBC (Bld) 83.0 % Critically high 43.0-75.0 [facility] Comment on above: Performed By: #### C BC #### [facility] [address] [place] [address] Dr. Ivett Scott Platelet mean volume (Bld) [Entitic vol] 9.7 fL Normal 9.5-13.5 [facility] Comment on above: Performed By: #### C BC #### [facility] [address] [place] [address] Dr. Ivett Scott PLT 165 103/ul Normal 150-450 [facility] Comment on above: Performed By: #### C BC #### [facility] [address] [place] [address] Dr. Ivett Scott RBC 4.49 106/ul Normal 4.20-5.40 [facility] Comment on above: Performed By: #### C BC #### [facility] [address] [place] [address] Dr. Ivett Scott WBC 7.0 103/ul Normal 4.0-11.0 [facility] Comment on above: Performed By: #### C BC #### [facility] [address] [place] [address] Dr. Ivett Scott [facility]on SARS-CoV-2 (COVID-19) RNA LJ+probe Ql (Unsp spec) Not detected Normal NOT DETECTED [facility] Comment on above: Result Comment: [...] for this test is supported by the [place] [employer] and Human Service's declaration that [...] By: #### C MP, HSTROPN, BNP #### [facility] [address] [place] [address] Dr. Ivett Scott PROF 14(COMP METB)on 022 Albumin [Mass/Vol] 3.6 g/dL Normal 3.4-5.0 [facility] Comment on above: Performed By: #### C ASHVIN HSTROPN, BNP #### [facility] [address] [place] [address] Dr. Ivett Scott Albumin/Globulin [Mass ratio] 1.0 {ratio} Normal [facility] Comment on above: Performed By: #### C ASHVIN HSTROPN, BNP #### [facility] [address] [place] [address] Dr. Ivett Scott ALP [Catalytic activity/Vol] 56 U/L Normal 46-116 [facility] Comment on above: Performed By: #### C MP HSTROPN, BNP #### [facility] [address] [place] [address] Dr. Ivett Scott ALT [Catalytic activity/Vol] 46 U/L Normal 14-59 [facility] Comment on above: Performed By: #### C ASHVIN HSTROPN, BNP #### [facility] [address] [place] [address] Dr. Ivett Scott Anion gap [Moles/Vol] 12.1 mmol/L Normal [facility] Comment on above: Performed By: #### C MP HSTROPN, BNP #### [facility] [address] [place] [address] Dr. Ivett Scott AST [Catalytic activity/Vol] 30 U/L Normal 15-37 [facility] Comment on above: Performed By: #### C MP, HSTROPN, BNP #### [facility] [address] [address] [address] Ivett Scott Bilirubin [Mass/Vol] 0.4 mg/dL Normal 0.2-1.0 [facility] Comment on above: Performed By: #### C MP, HSTROPN, BNP #### [facility] [address] [address] [address] Ivett Scott Calcium [Mass/Vol] 8.8 mg/dL Normal 8.5-10.1 [facility] Comment on above: Performed By: #### C MP, HSTROPN, BNP #### [facility] [address] [place] [address] Dr. Ivett Scott Chloride [Moles/Vol] 105 mmol/L Normal 98-107 [facility] Comment on above: Performed By: #### C MP, HSTROPN, BNP #### [facility] [address] [place] [address] Dr. Ivett Scott CO2 [Moles/Vol] 26.5 mmol/L Normal 21.0-32.0 [facility] Comment on above: Performed By: #### C MP, HSTROPN, BNP #### [facility] [address] [place] [address] Dr. Ivett Scott Creatinine [Mass/Vol] 0.68 mg/dL Normal 0.55-1.02 [facility] Comment on above: Performed By: #### C MP, HSTROPN, BNP #### [facility] [address] [address] [address] Ivett Scott EGFR-AF SPANISH >60 Normal >=60 [facility] Comment on above: Performed By: #### C MP, HSTROPN, BNP #### [facility] [address] [address] [address] Ivett Scott EGFR-NON AF SPANISH >60 Normal >=60 [facility] Comment on above: Performed By: #### C MP, HSTROPN, BNP #### [facility] [address] [address] [address] Ivett Scott Globulin (S) [Mass/Vol] 3.7 g/dL Normal [facility] Comment on above: Performed By: #### C MP, HSTROPN, BNP #### [facility] [address] [place] [address] Dr. Ivett Scott Glucose [Mass/Vol] 155 mg/dL Critically high 74-106 T [facility] Comment on above: Performed By: #### C MP, HSTROPN, BNP #### [facility] [address] [place] [address] Dr. Ivett Scott Potassium [Moles/Vol] 3.6 mmol/L Normal 3.5-5.1 [facility] Comment on above: Performed By: #### C MP, HSTROPN, BNP #### [facility] [address] [place] [address] Dr. Ivett Scott Protein [Mass/Vol] 7.3 g/dL Normal 6.4-8.2 [facility] Comment on above: Performed By: #### C MP, HSTROPN, BNP #### [facility] [address] [place] [address] Dr. Ivett Scott Sodium [Moles/Vol] 140 mmol/L Normal 136-145 [facility] Comment on above: Performed By: #### C MP, HSTROPN, BNP #### [facility] [address] [place] [address] Dr. Ivett Scott Urea nitrogen [Mass/Vol] 12.0 mg/dL Normal 7.0-18.0 [facility] Comment on above: Performed By: #### C MP, HSTROPN, BNP #### [facility] [address] [place] [address] Dr. Ivett Scott Urea nitrogen/Creatinine [Mass ratio] 17.6 mg/mg Normal [facility] Comment on above: Performed By: #### C MP, HSTROPN, BNP #### [facility] [address] [place] [address] Dr. Ivett Scott PROTIMEon 12-26-2021 INR Coag (PPP) [Relative time] 0.95 {INR} Normal [facility] Comment on above: Performed By: #### C MP, HSTROPN, BNP #### [facility] [address] [place] [address] Dr. Ivett Scott INR GUIDELINES SEE BELOW Normal [facility] Comment on above: Result Comment: ARABELLA RED INR: 2.0 - 3.0 CONDITIONS NOT LISTED BELOW 2.5 - 3.5 FOR PROSTHETIC HEART VALVE REPLACEMENT 2.5 - 3.5 RECURRENT THROMBOSIS Performed By: #### C MP, HSTROPN, BNP #### [facility] [address] [place] [address] Dr. Ivett Scott PT Coag (PPP) [Time] 10.3 s Normal 9.0-11.6 [facility] Comment on above: Performed By: #### C MP, HSTROPN, BNP #### [facility] [address] [place] [address] Dr. Ivett Scott PTTon 12-26-2021 aPTT Coag (Bld) [Time] 26.7 s Normal 22.3-36.2 [facility] Comment on above: Performed By: #### C MP, HSTROPN, BNP #### [facility] Laboratory [address] [place] [address] Dr. Ivett Scott TROPONIN, HIGH SENSITIVITYon 12-26-2021 HSTROP 5.2 pg/mL Normal 4.0-51.3 The [facility] Comment on above: Result Comment: CUT- OFF POINTS HAVE BEEN ESTABLISHED BASED ON THE FOURTH UNIVERSAL DEFINITIONS OF MYOCARDIAL INFARCTION. THE UPPER REFERENCE LIMIT (URL) OF TROPONIN, DEFINED THE 99TH PERCENTILE OF cTnI DISTRIBUTION IN A REFERENCE POPULATION, HAS BEEN CONFIRMED THE DECISION THRESHOLD FOR HI DIAGNOSIS. Performed By: #### C MP, HSTROPN, BNP #### [facility] Laboratory [address] [place] [address] Dr. Ivett Scott XR CHEST 1 Von [...] by: MIHAI MAI Date: 2021-12-26 14:13 Normal [facility] CULTURE URINEon 12-13-2021 CULTURE URINE Culture Observations : LIGHT GROWTH OF MIXED GENITAL KARTHIK. NO POTENTIAL PATHOGENS SEEN. Normal [facility] Comment on above: Performed By: #### C MP, HSTROPN, BNP #### [facility] Laboratory [address] [address] [address] Ivett Scott HEMOGLOBINon 11-05-2021 Hemoglobin (Bld) [Mass/Vol] 13.0 g/dL Normal 12.0-16.0 [facility] Comment on above: Performed By: #### H GB #### [facility] Laboratory [address] [address] [address] Ivett Scott Vital Signs Date Time Vital Sign Value Performing Clinician Facility 09-28-2024 11:[id number] Body height 167.64 cm PHYSICIAN NO [facility] 09-28-2024 11:13-0400 Body mass index (BMI) [Ratio] 33 kg/m2 PHYSICIAN [facility] 09-28-2024 11:13-0400 Body weight 92.98 kg PHYSICIAN NO [facility] 09-28-2024 11:13-0400 Diastolic blood pressure 88 mm[Hg] PHYSICIAN NO [facility] 09-28-2024 11:13-0400 Heart rate 70 /min PHYSICIAN NO [facility] 09-28-2024 11:13-0400 Respiratory rate 20 /min PHYSICIAN NO [facility] 09-28-2024 11:13-0400 SaO2% (BldA) [Mass fraction] 95 % PHYSICIAN NO [facility] 09-28-2024 11:13-0400 Systolic blood pressure 138 mm[Hg] PHYSICIAN NO [facility] 09-11-2024 09:33-0400 Body height 167.64 cm [facility] 09-11-2024 09:33-0400 Body mass index (BMI) [Ratio] 337.6 kg/m2 [facility] 09-11-2024 09:33-0400 Body temperature 98.2 [degF] [facility] 09-11-2024 09:33-0400 Body weight 948.91 kg [facility] 09-11-2024 09:33-0400 Diastolic blood pressure 79 mm[Hg] [facility] 09-11-2024 09:33-0400 Heart rate 77 /min [facility] 09-11-2024 09:33-0400 Respiratory rate 19 /min [facility] 09-11-2024 09:33-0400 SaO2% (BldA) [Mass fraction] 97 % [facility] 09-11-2024 09:33-0400 Systolic blood pressure 131 mm[Hg] [facility] 05-19-2024 14:28-0500 Body mass index (BMI) [Ratio] 33.25 kg/m2 Gosia Rinkes DO Work Phone: [facility] 05-19-2024 14:28-0500 Body weight 93.44 kg Gosia Rinkes DO Work Phone: [facility] 05-19-2024 14:28-0500 Diastolic blood pressure 82 mm[Hg] Gosia Rinkes DO Work Phone: [facility] 05-19-2024 14:28-0500 Systolic blood pressure 128 mm[Hg] Gosia Rinkes DO Work Phone: [facility] 01-14-2024 15:54-0400 Body height 167.6 cm Jim Goldberg DPM Work Phone: [facility] 01-14-2024 15:54-0400 Body mass index (BMI) [Ratio] 32.28 kg/m2 Jim Goldberg DPM Work Phone: [facility] 01-14-2024 15:54-0400 Body weight 90.72 kg Jim Brown DPM Work Phone: [facility] 01-14-2024 15:54-0400 Diastolic blood pressure 80 mm[Hg] Jim Brown DPM Work Phone: [facility] 01-14-2024 15:54-0400 Heart rate 75 /min Jim Brown DPM Work Phone: [facility] 01-14-2024 15:54-0400 Respiratory rate 18 /min Jim Brown DPM Work Phone: [facility] 01-14-2024 15:54-0400 Systolic blood pressure 124 mm[Hg] Jim Brown DPM Work Phone: [facility] 12-31-2023 13:43-0400 Body height 167.6 cm Jim Brown DPM Work Phone: [facility] 12-31-2023 13:43-0400 Body mass index (BMI) [Ratio] 32.28 kg/m2 Jim Brown DPM Work Phone: [facility] 12-31-2023 13:43-0400 Body weight 90.72 kg Jim Brown DPM Work Phone: [facility] 12-31-2023 13:43-0400 Diastolic blood pressure 75 mm[Hg] Jim Brown DPM Work Phone: [facility] 12-31-2023 13:43-0400 Heart rate 82 /min Jim Brown DPM Work Phone: [facility] 12-31-2023 13:43-0400 Systolic blood pressure 123 mm[Hg] Jim Brown DPM Work Phone: [facility] 12-09-2023 14:42-0400 Body height 167.6 cm Jim Brown DPM Work Phone: [facility] 12-09-2023 14:42-0400 Body mass index (BMI) [Ratio] 32.28 kg/m2 Jim Yusuf DPM Work Phone: [facility] 12-09-2023 14:42-0400 Body weight 90.72 kg Jim Goldberg DPM Work Phone: [facility] 12-09-2023 14:42-0400 Diastolic blood pressure 79 mm[Hg] Jim Goldberg DPM Work Phone: [facility] 12-09-2023 14:42-0400 Heart rate 77 /min Jim Goldberg DPM Work Phone: [facility] 12-09-2023 14:42-0400 Systolic blood pressure 129 mm[Hg] Jim Ysuuf DPM Work Phone: [facility] 08-20-2023 14:20-0400 Body height 167.64 cm PHYSICIAN NO [facility] 08-20-2023 14:20-0400 Body mass index (BMI) [Ratio] 33.6 kg/m2 PHYSICIAN NO [facility] 08-20-2023 14:20-0400 Body temperature 98.1 [degF] PHYSICIAN NO [facility] 08-20-2023 14:20-0400 Body weight 94.51 kg PHYSICIAN NO [facility] 08-20-2023 14:20-0400 Heart rate 91 /min PHYSICIAN NO [facility] 08-20-2023 14:20-0400 Respiratory rate 18 /min PHYSICIAN NO [facility] 08-20-2023 14:20-0400 SaO2% (BldA) [Mass fraction] 98 % PHYSICIAN NO [facility] 07-30-2023 17:29-0400 Body height 167.64 cm PHYSICIAN NO [facility] 07-30-2023 17:29-0400 Body mass index (BMI) [Ratio] 34.1 kg/m2 PHYSICIAN NO [facility] 07-30-2023 17:29-0400 Body weight 95.87 kg PHYSICIAN NO [facility] 07-30-2023 17:29-0400 Diastolic blood pressure 80 mm[Hg] PHYSICIAN NO [facility] 07-30-2023 17:29-0400 Heart rate 60 /min PHYSICIAN NO [facility] 07-30-2023 17:29-0400 Respiratory rate 18 /min PHYSICIAN NO [facility] 07-30-2023 17:29-0400 SaO2% (BldA) [Mass fraction] 95 % PHYSICIAN NO [facility] 07-30-2023 17:29-0400 Systolic blood pressure 140 mm[Hg] PHYSICIAN NO [facility] 04-27-2023 10:40-0500 Body height 170.18 cm Sky Resendiz Other [facility] [employer] Other 04-27-2023 10:40-0500 Body mass index (BMI) [Ratio] 32.89 kg/m2 Sky Resendiz Other [facility] Other 04-27-2023 10:40-0500 Body weight 95.26 kg Sky Resendiz Other [facility] Other 04-17-2023 09:30-0500 Body height 170.18 cm Kianna Blackwell Other [facility] Other 04-17-2023 09:30-0500 Body mass index (BMI) [Ratio] 32.92 kg/m2 Kianna Blackwell Other [facility] Other 04-17-2023 09:30-0500 Body temperature 98.2 [degF] Kianna Blackwell Other [facility] Other 04-17-2023 09:30-0500 Body weight 95.35 kg Kianna Blackwell Other [facility] Other 04-17-2023 09:30-0500 Diastolic blood pressure 89 mm[Hg] Kianna Blackwell Other [facility] Other 04-17-2023 09:30-0500 Respiratory rate 18 /min Kianna Blackwell Other [facility] Other 04-17-2023 09:30-0500 SaO2% (BldA) [Mass fraction] 96 % Kianna Blackwell Other [facility] Other 04-17-2023 09:30-0500 Systolic blood pressure 158 mm[Hg] Kianna Blackwell Other [facility] Other 04-01-2023 10:30-0500 Body height 170.18 cm Marie Mandy Other [facility] Other 04-01-2023 10:30-0500 Body mass index (BMI) [Ratio] 32.26 kg/m2 Marie Mandy Other [facility] Other 04-01-2023 10:30-0500 Body temperature 97.4 [degF] Marie Mandy Other [facility] Other 04-01-2023 10:30-0500 Body weight 93.44 kg Marie Mandy Other [facility] Other 04-01-2023 10:30-0500 Diastolic blood pressure 84 mm[Hg] Marie Mandy Other [facility] Other 04-01-2023 10:30-0500 Respiratory rate 20 /min Marie Mandy Other [facility] Other 04-01-2023 10:30-0500 SaO2% (BldA) [Mass fraction] 100 % Marie Galvan Other [facility] Other 04-01-2023 10:30-0500 Systolic blood pressure 131 mm[Hg] Marie Mandy Other [facility] Other 02-18-2023 13:10-0400 Body height 170.18 cm Mary Sophia Other [facility] Other 02-18-2023 13:10-0400 Body mass index (BMI) [Ratio] 33.11 kg/m2 Mary Sophia Other [facility] Other 02-18-2023 13:10-0400 Body temperature 97.9 [degF] Mary Sophia Other [facility] Other 02-18-2023 13:10-0400 Body weight 95.89 kg Mary Sophia Other [facility] Other 02-18-2023 13:10-0400 Diastolic blood pressure 72 mm[Hg] Mary Sophia Other [facility] Other 02-18-2023 13:10-0400 Respiratory rate 18 /min Mary Sophia Other [facility] Other 02-18-2023 13:10-0400 SaO2% (BldA) [Mass fraction] 98 % Mary Spohia Other [facility] Other 02-18-2023 13:10-0400 Systolic blood pressure 118 mm[Hg] Mary Sophia Other [facility] Other 02-11-2023 09:00-0400 Body height 170.18 cm Mary Cortes Other [facility] Other 02-11-2023 09:00-0400 Body mass index (BMI) [Ratio] 32.1 kg/m2 Mary Sophia Other [facility] Other 02-11-2023 09:00-0400 Body temperature 97.9 [degF] Mary Cortes Other [facility] Other 02-11-2023 09:00-0400 Body weight 92.99 kg Mary Sophia Other [facility] Other 02-11-2023 09:00-0400 Diastolic blood pressure 83 mm[Hg] Mary Reyezmond Other [facility] Other 02-11-2023 09:00-0400 Respiratory rate 18 /min Mary Reyezmond Other [facility] Other 02-11-2023 09:00-0400 SaO2% (BldA) [Mass fraction] 99 % Mary Cortes Other [facility] Other 02-11-2023 09:00-0400 Systolic blood pressure 169 mm[Hg] aMry Sophia Other [facility] Other 11-01-2022 09:35-0400 Body height 170.18 cm Jarred Rendon Other [facility] Other 11-01-2022 09:35-0400 Body mass index (BMI) [Ratio] 32.89 kg/m2 Jarred Rendon Other [facility] Other 11-01-2022 09:35-0400 Body temperature 97.1 [degF] Jarred Rendon Other [facility] Other 11-01-2022 09:35-0400 Body weight 95.26 kg Jarred Rendon Other [facility] Other 11-01-2022 09:35-0400 Diastolic blood pressure 83 mm[Hg] Jarred Rendon Other [facility] Other 11-01-2022 09:35-0400 Respiratory rate 18 /min Jarred Rendon Other [facility] Other 11-01-2022 09:35-0400 SaO2% (BldA) [Mass fraction] 98 % Jarred Rendon Other [facility] Other 11-01-2022 09:35-0400 Systolic blood pressure 137 mm[Hg] Jarred Rendon Other [facility] Other 10-05-2022 10:15-0400 Body height 170.18 cm Kalie French Other [facility] Other 10-05-2022 10:15-0400 Body mass index (BMI) [Ratio] 33.01 kg/m2 Kalie French Other [facility] Other 10-05-2022 10:15-0400 Body temperature 98.2 [degF] Kalie French Other [facility] Other 10-05-2022 10:15-0400 Body weight 95.62 kg Kalie French Other [facility] Other 10-05-2022 10:15-0400 Diastolic blood pressure 76 mm[Hg] Kalie French Other [facility] Other 10-05-2022 10:15-0400 Respiratory rate 18 /min Kalie Gillian Other [facility] Other 10-05-2022 10:15-0400 SaO2% (BldA) [Mass fraction] 98 % Kalie Gillian Other [facility] Other 10-05-2022 10:15-0400 Systolic blood pressure 131 mm[Hg] Kalieevan French Other [facility] Other 03-19-2022 10:00-0500 Body height 170.18 cm Marie Mandy Other [facility] Other 03-19-2022 10:00-0500 Body mass index (BMI) [Ratio] 33.67 kg/m2 Marie Mandy Other [facility] Other 03-19-2022 10:00-0500 Body temperature 96.9 [degF] Marie Mandy Other [facility] Other 03-19-2022 10:00-0500 Body weight 97.52 kg Marie Mandy Other [facility] Other 03-19-2022 10:00-0500 Diastolic blood pressure 93 mm[Hg] Marie Mandy Other [facility] Other 03-19-2022 10:00-0500 Respiratory rate 20 /min Marie Mandy Other [facility] Other 03-19-2022 10:00-0500 SaO2% (BldA) [Mass fraction] 100 % Marie Mandy Other [facility] Other 03-19-2022 10:00-0500 Systolic blood pressure 160 mm[Hg] Marie Mandy Other [facility] Other 01-26-2022 10:15-0400 Body height 170.18 cm Yuridia Bundyault Other [facility] Other 01-26-2022 10:15-0400 Body mass index (BMI) [Ratio] 34.2 kg/m2 Yuridia Bundyault Other [facility] Other 01-26-2022 10:15-0400 Body temperature 97.8 [degF] Yuridia Gloria Other [facility] Other 01-26-2022 10:15-0400 Body weight 99.07 kg Yuridia Bundyault Other [facility] Other 01-26-2022 10:15-0400 Diastolic blood pressure 85 mm[Hg] Yuridia Gloria Other [facility] Other 01-26-2022 10:15-0400 Respiratory rate 20 /min Yuridia Gloria Other [facility] Other 01-26-2022 10:15-0400 SaO2% (BldA) [Mass fraction] 97 % Yuridia Gloria Other [facility] Other 01-26-2022 10:15-0400 Systolic blood pressure 140 mm[Hg] Yuridia Gloria Other [facility] [employer] Other Encounters Encounter Date Encounter Type Care Provider Facility Start: 12-12-2025 ambulatory WIRELESS ENGINEER Garett L Rommel Facil ity:[facility] [place] Start: 02-13-2025 ambulatory WIRELESS ENGINEER Garett L Rommel Facil ity:[facility] [place] Start: 01-19-2025 ambulatory WIRELESS ENGINEER Garett L Rommel Facil ity:[facility] [place] Start: 12-12-2024 End: 12-12-2024 ambulatory Garett L Rommel Facility: [facility] Start: 10-25-2024 End: 10-25-2024 ambulatory AYAN ARCEER Not Available Start: 10-25-2024 End: 10-25-2024 Office outpatient visit 15 minutes Ayan Arceer SPEECH LANGUAGE PATHOLOGIST ASSISTANT-BACK END ENGINEER Work Phone: [facility] Comment on above: Melanocytic nevus of lower extremity, unspecified laterality (Primary Dx); Moise angioma; Lentigines; Seborrheic keratosis Start: 10-25-2024 End: 10-25-2024 Bamboo flowsheet Ayan Arceer SPEECH LANGUAGE PATHOLOGIST ASSISTANT-BACK END ENGINEER Work Phone: [facility] Start: 10-25-2024 End: 10-25-2024 Bamboo flowsheet Ayan A Felter SPEECH LANGUAGE PATHOLOGIST ASSISTANT-BACK END ENGINEER Work Phone: [facility] Start: 09-28-2024 End: 09-28-2024 ambulatory PHYSICIAN NO [facility] Work Phone: Start: 09-28-2024 End: 09-28-2024 Patient encounter procedure PHYSICIAN NO [facility] Work Phone: Start: 09-11-2024 End: 09-12-2024 External Result Encounter Yaneli Lobo NEEDLE LEADER Work Phone: [facility] Unsolicited Start: 09-11-2024 End: 09-12-2024 External Result Encounter Yaneli Lobo NEEDLE LEADER Work Phone: [facility] External Department Unsolicited Start: 09-11-2024 End: 09-11-2024 Departed Referred Yaneli Lobo SPEECH LANGUAGE PATHOLOGIST ASSISTANT Work Phone: [facility] [place] Work Phone: Start: 09-11-2024 End: 09-11-2024 ambulatory Yaneli Lobo [place] Work Phone: Start: 09-11-2024 End: 09-11-2024 Patient encounter procedure [facility] Work Phone: Start: 05-19-2024 End: 05-19-2024 Office outpatient visit 25 minutes Gosialea Myerskes DO Work Phone: [facility] Comment on above: Vaginal atrophy (Kelsea kami Dx); Encounter for screening mammogram for breast cancer; Urinary frequency; Cystocele, midline; Uterine prolapse Start: 05-19-2024 End: 05-19-2024 ambulatory GOSIA ZAMAN Not Available Start: 05-19-2024 End: 05-19-2024 Bamboo flowsheet Gosia E Rinkes DO Work Phone: [facility] Start: 05-19-2024 End: 05-19-2024 Bamboo flowsheet Gosia E Rinkes DO Work Phone: [facility] Start: 02-29-2024 End: 02-29-2024 Patient encounter procedure Janette Carcamo MD Work Phone: [facility] Work Phone: Start: 02-29-2024 End: 02-29-2024 ambulatory Janette Carcamo MD Work Phone: [facility] Work Phone: Start: 02-11-2024 End: 02-11-2024 ambulatory JIE Nolen [facility] l Start: 02-11-2024 End: 02-11-2024 Subsequent hospital visit by physician Janette Carcamo MD Work Phone: [facility] Laboratory Comment on above: Urinary tract infect ion with hematuria, site unspecified Start: 02-08-2024 End: 02-08-2024 ambulatory Garett Tillman Facility:[facility] aCrisa márquez Start: 02-01-2024 End: 02-01-2024 ambulatory JIE HANNA [facility] Start: 01-14-2024 End: 01-14-2024 Postop follow up visit related to original px Jim Goldberg DPM Work Phone: [facility] Comment on above: Closed displaced fra cture of distal phalanx of left great toe, initial encounter (Primary Dx) Start: 01-14-2024 End: 01-14-2024 ambulatory JIM GOLDBERG Not Available Start: 01-14-2024 End: 01-14-2024 Bamboo flowsheet Jim Goldberg DPM Work Phone: [facility] Start: 01-14-2024 End: 01-14-2024 Bamboo flowsheet Jim Goldberg DPM Work Phone: [facility] Start: 12-31-2023 End: 12-31-2023 Bamboo flowsheet Jim Goldberg DPM Work Phone: [facility] Start: 12-31-2023 End: 12-31-2023 Bamboo flowsheet Jim Goldberg DPM Work Phone: [facility] Start: 12-31-2023 End: 12-31-2023 Office outpatient visit 15 minutes Jim Goldberg DPM Work Phone: [facility] Comment on above: Capsulitis of metata rsophalangeal (MTP) joint of right foot (Primary Dx); Closed displaced fracture of distal phalanx of left great toe, initial encounter Start: 12-31-2023 End: 12-31-2023 ambulatory JIM GOLDBERG Not Available Start: 12-25-2023 End: 12-30-2023 Telephone encounter Gosia Zaman DO Work Phone: [facility] Start: 12-23-2023 End: 12-23-2023 Lab Drop off Janette Carcamo [facility] Start: 12-23-2023 End: 12-23-2023 ambulatory Garett Badillo Rommel Facility:[facility] Start: 12-09-2023 End: 12-09-2023 Office outpatient visit 15 minutes Jim Goldberg DPM Work Phone: [facility] Comment on above: Closed displaced fra cture of distal phalanx of left great toe, initial encounter (Primary Dx); Capsulitis of metatarsophalangeal (MTP) joint of right foot Start: 12-09-2023 End: 12-09-2023 ambulatory JIM GOLDBERG Not Available Start: 12-09-2023 End: 12-09-2023 Bamboo flowsheet Jim Goldberg DPM Work Phone: [facility] Start: 12-09-2023 End: 12-09-2023 Bamboo flowsheet Jim A Brown DPM Work Phone: [facility] Start: 11-26-2023 End: 11-26-2023 ambulatory JIM Bryn BROWN Not Available Start: 11-25-2023 End: 11-25-2023 ambulatory JIM A BROWN Not Available Start: 11-16-2023 End: 11-16-2023 ambulatory JIM A BROWN Not Available Start: 11-16-2023 End: 11-16-2023 ambulatory JIM A BROWN Not Available Start: 08-20-2023 End: 08-20-2023 ambulatory PHYSICIAN NO [facility] Work Phone: Start: 08-20-2023 End: 08-20-2023 Departed Referred PHYSICIAN NO [facility] [place] Work Phone: Start: 08-20-2023 End: 08-20-2023 Patient encounter procedure PHYSICIAN NO [facility] Work Phone: Start: 07-30-2023 End: 07-30-2023 ambulatory PHYSICIAN NO [facility] Work Phone: Start: 07-30-2023 End: 07-30-2023 Patient encounter procedure PHYSICIAN NO [facility] Work Phone: Start: 07-30-2023 End: 07-30-2023 Patient encounter procedure PHYSICIAN NO [facility] Work Phone: Start: 06-25-2023 End: 06-25-2023 Patient encounter procedure PHYSICIAN NO [facility] Work Phone: Start: 04-27-2023 End: 04-27-2023 ambulatory Sky Resendiz Other [facility] Other Start: 04-27-2023 Office outpatient vi sit 15 minutes Sky Resendiz [facility] Start: 04-27-2023 Telephone encounter Sky Kwan [facility] Start: 04-17-2023 End: 04-17-2023 ambulatory Kianna Blackwell Other [facility] Other Start: 04-17-2023 Office outpatient vi sit 15 minutes Kianna Blackwell [facility] Start: 04-01-2023 End: 04-01-2023 ambulatory Marie Mandy Other [facility] Other Start: 04-01-2023 Office outpatient vi sit 25 minutes Marie Mandy [facility] Start: 03-16-2023 End: 03-16-2023 ambulatory Calderon Ortiz Other [facility] Other Start: 03-16-2023 Telephone encounter Calderon Ortiz [facility] Start: 02-25-2023 End: 02-25-2023 Patient encounter procedure Garett Tillman [facility] Start: 02-18-2023 Office outpatient vi sit 15 minutes Mary Cortes [facility] Start: 02-18-2023 End: 02-18-2023 ambulatory PHYSICIAN NO [facility] [employer] [facility] [employer] Other Start: 02-18-2023 End: 02-18-2023 Departed Referred PHYSICIAN NO [facility] [place] Work Phone: Start: 02-11-2023 Office outpatient vi sit 15 minutes Mary Cortes [facility] Start: 02-11-2023 End: 02-11-2023 ambulatory NEEDLE LEADER-C Mary Sophia Work Phone: [facility] Work Phone: Start: 02-11-2023 End: 02-11-2023 Departed Referred NEEDLE LEADER-C Mary Cortes Work Phone: [facility] [place] Work Phone: Start: 02-02-2023 End: 02-02-2023 ambulatory Calderon Ortiz Other [facility] Other Start: 02-02-2023 Telephone encounter Calderon Ortiz [facility] Start: 11-03-2022 End: 11-03-2022 ambulatory Jarred Rendon Other [facility] Other Start: 11-03-2022 Telephone encounter Jarred Rendon [facility] Start: 11-01-2022 End: 11-01-2022 ambulatory Jarred Rendon Other [facility] Other Start: 11-01-2022 Office outpatient vi sit 15 minutes Jarred Rendon [facility] Start: 10-05-2022 End: 10-05-2022 ambulatory Kalie French Other [facility] Other Start: 10-05-2022 Office outpatient vi sit 15 minutes Kalie French [facility] Start: 09-03-2022 End: 09-04-[address] ANDRES SIMMS . Facility:[facility] Start: 07-02-2022 End: 07-03-[address] ANDRES SIMMS . Facility:[facility] Start: 03-19-2022 End: 03-19-2022 ambulatory Marie Mandy Other [facility] Other Start: 03-19-2022 Office outpatient ne w 45 minutes Marie Mandy [facility] Start: 02-24-2022 End: 02-25-[address] ANDRES SIMMS . Facility:[facility] Start: 02-11-2022 End: 02-11-2022 Patient encounter procedure Gosai Zaman [facility] Start: 01-26-2022 End: 01-26-2022 ambulatory Yuridia Castro Other [facility] Other Start: 01-26-2022 Office outpatient vi sit 15 minutes Yuridia Castro [facility] Start: 01-14-2022 End: 01-15-[address] DOCTOR RAMOS Facility:[facility] Start: 01-07-2022 End: 01-07-2022 ambulatory Calderon Ortiz Other [facility] Other Start: 01-07-2022 Telephone encounter Calderon TORO [facility] Start: 12-26-2021 End: 12-26-[address] GEE GALLOWAY Facility:[facility] Start: 12-13-2021 End: 12-14-[address] ANDRES SIMMS . Facility:[facility] Start: 11-05-2021 End: 11-06-[address] ANDRES SIMMS . Facility:[facility] Start: 10-09-2020 End: 10-09-2020 Patient encounter procedure Yuridia Castro Work Phone: [facility] Procedures Date Procedure Procedure Detail Performing Clinician Start: 09-11-2024 Urine culture PHYSICIAN NO FAMILY Start: 09-11-2024 Culture bacterial quanttative colony count urine Yaneli Lobo NEEDLE LEADER Work Phone: Start: 05-19-2024 Urnls dip stick/tablet rgnt non-auto w/o micrscp Gosia Zaman DO Work Phone: Start: 02-29-2024 End: 02-29-2024 Screening mammography of bilateral breasts Janette Carcamo MD Work Phone: Start: 02-11-2024 Urnls dip stick/tablet rgnt auto w/o microscopy Jie Hanna SPEECH LANGUAGE PATHOLOGIST ASSISTANT - BACK END ENGINEER Work Phone: Start: 07-30-2023 Urine culture PHYSICIAN NO FAMILY Start: 06-25-2023 Plain X-ray of right shoulder PHYSICIAN NO FAMILY Start: 02-24-2023 Mammography Jim Goldberg DPM Work Phone: Start: 02-11-2023 Piperacillin/tazobactam Mary Cortes Other Start: 02-11-2023 Urine culture PHYSICIAN NO FAMILY Start: 04-20-2021 Esophagogastroduodenoscopy Garett Rommel Comment on above: with Dilation Start: 10-09-2020 Diagnostic radiography of abdomen Bi Castro Work Phone: Start: 04-20-2014 Colonoscopy Garett Rommel Start: 03-20-2009 Cholecystectomy Garett Rommel Comment on above: no date listed on previous medical recor d Plan of Treatment Date Care Activity Detail Author Start: 06-13-2025 End: 06-13-2025 Patient encounter procedure 06/13/2025 10:45 AM EST Office Visit [facility] [address] [place] [address] Gosia Zaman, [address] [place] [address] [facility] Start: 05-19-2025 End: 07-17-2025 DBT Breast - bilateral screening Bilateral screening mammogram with tomosynthesis Imaging Routine Encounter for screening mammogram for breast cancer Expected: 05/19/2025, Expires: 07/17/2025 [facility] Work Phone: Comment on above: Expected: 05/19/2025, Expires: Start: 02-28-2025 Screening for malignant neoplasm of breast Mammogram [facility] Start: 12-19-2024 Influenza vaccination Influenza Vaccine (#1) [facility] Start: 10-25-2024 End: 10-25-2024 Patient encounter procedure 10/25/2024 2:10 PM EDT Office Visit [facility] [address] [place] [phone] Ayan You, SPEECH LANGUAGE PATHOLOGIST ASSISTANT-BACK END ENGINEER [address] [place] [address] [facility] Start: 10-12-2024 End: 10-12-2024 Patient encounter procedure 10/12/2024 2:05 PM EDT Office Visit [facility] [address] [place] [phone] Ayan You, SPEECH LANGUAGE PATHOLOGIST ASSISTANT-BACK END ENGINEER [address] [place] [address] [facility] Start: 09-11-[address] [facility] Start: 09-11-2024 Bacteria identified in Urine by Culture [facility] Work Phone: Start: 05-19-2024 End: 05-19-2024 Patient encounter procedure [facility] Comment on above: Vaginal atrophy; Encounter for screening mammogram for breast cancer Start: 05-03-2024 End: 05-03-2024 Patient encounter procedure 05/03/2024 10:30 AM EST Office Visit [facility] [address] [facility] [address] [place] [address] Jie [place] APRN - SYLVIA [address] [place] [address] 3 mo. UTI ck. [facility] Comment on above: 3 mo. UTI ck. Start: 02-25-2024 Screening for malignant neoplasm of breast Mammogram [facility] Start: 02-17-2024 End: 02-17-2024 Patient encounter procedure 02/17/2024 11:00 AM EDT Office Visit [facility] [address] [place] [address] Gosia Zaman, DO [address] [place] [address] [facility] Start: 02-12-2024 Screening for malignant neoplasm of breast Breast cancer screen [facility] Start: 01-14-2024 End: 01-14-2024 Professional / ancillary services management 01/14/2024 4:25 PM EDT Ancillary Procedure [facility] [address] [facility] [address] [place] [id number] Arrived [facility] Comment on above: Arrived Start: 01-14-2024 End: 01-14-2024 Patient encounter procedure 01/14/2024 3:40 PM EDT Office Visit [facility] [address] [place] [phone] Jim Goldberg DPM [address] [facility] [address] [place] [address] Closed displaced fracture of distal phalanx of left great toe, initial encounter (Primary Dx) [facility] Comment on above: Closed displaced fracture of distal phal anx of left great toe, initial encounter (Primary Dx) Start: 12-31-2023 End: 12-31-2023 Professional / ancillary services management 12/31/2023 1:55 PM EDT Ancillary Procedure [facility] [address] [facility] [address] [place] [phone] Arrived [facility] Comment on above: Arrived Start: 12-31-2023 End: 12-31-2023 Patient encounter procedure [facility] Comment on above: Capsulitis of metatarsophalangeal (MTP) joint of right foot (Primary Dx); Closed displaced fracture of distal phalanx of left great toe, initial encounter Start: 12-25-2023 End: 02-23-2025 DBT Breast - bilateral screening Bilateral screening mammogram with tomosynthesis Imaging Routine Encounter for screening mammogram for breast cancer Expected: 12/25/2023, Expires: 02/23/2025 [facility] Work Phone: Comment on above: Expected: 12/25/2023, Expires: Start: 12-20-2023 COVID-19 Vaccine ( season) COVID-19 Vaccine ( season) [facility] Start: 12-20-2023 Influenza vaccination Influenza Vaccine (#1) [facility] Start: 12-09-2023 End: 12-09-2023 Patient encounter procedure 12/09/2023 2:40 PM EDT Office Visit [facility] [address] [place] [address] Jim Goldberg DPM [address] [address] Closed displaced fracture of distal phalanx of left great toe, initial encounter (Primary Dx) [facility] Comment on above: Closed displaced fracture of distal phal anx of left great toe, initial encounter (Primary Dx) Start: 11-19-2023 Influenza vaccination Flu vaccine (#1) [facility] Start: 10-02-2023 Annual Wellness Visit (Medicare) Annual Wellness Visit (Medicare) [facility] Start: 08-21-2023 Bacteria identified in Urine by [...] identified in Urine by Culture Urine Culture [facility] Start: 2015 Respiratory Syncytial Virus (RSV) or age 60 yrs+ (1 - 1-dose 60+ series) Respiratory Syncytial Virus (RSV) or age 60 yrs+ (1 - 1-dose 60+ series) [facility] Start: 2010 Screening for osteoporosis DEXA (modify frequency per FRAX score) [facility] Start: 2000 [facility] Start: 1995 Lipid panel Lipids [facility] Start: 1974 DTaP/Tdap/Td vaccine (1 - Tdap) DTaP/Tdap/Td vaccine (1 - Tdap) [facility] Start: 1973 Hepatitis C screening Hepatitis C screen [facility] Start: 1967 Depression Screen Depression Screen [facility] Start: 1955 Screening for malignant neoplasm of colon [facility] End: 02-11-2024 Culture, Urine [facility] Comment on above: 1 Occurrences starting 02/11/2024 until 02/11/2024 Urine culture [facility] XR Foot - left 2 Views XR foot 1 or 2 views left Imaging Routine Closed displaced fracture of distal phalanx of left great toe, initial encounter 01/14/2024 4:20 PM EDT [facility] Work Phone: XR Foot - left 3 Views XR foot 3 + views left Imaging Routine Closed displaced fracture of distal phalanx of left great toe, initial encounter 12/31/2023 1:51 PM EDT [facility] Work Phone: Immunizations Immunization Date Immunization Notes Care Provider Fa tim 02-08-2024 influenza virus vaccine, unspecified formulation Ayan You SPEECH LANGUAGE PATHOLOGIST ASSISTANT-BACK END ENGINEER Work Phone: [facility] 03-10-2023 influenza virus vaccine, unspecified formulation Jim Yusuf DPM Work Phone: [facility] 03-10-2023 zoster vaccine recombinant Janette Carcamo [facility] 04-02-2022 SARS-CoV-2 (COVID-19 ) [id number] Garett Rommel [facility] Comment on above: Result Comment: 2022: [id number] 02-15-2022 influenza virus vaccine, unspecified formulation Garett Rommel [facility] 02-15-2022 pneumococcal 20-samy nt conjugate vaccine Garett Rommel [facility] 02-20-2021 SARS-CoV-2 (COVID-19 ) mRNA-1273 vaccine Garett Rommel [facility] Comment on above: Result Comment: 2022: [id number] 07-11-2020 SARS-CoV-2 (COVID-19 ) mRNA-1273 vaccine Garett Rommel [facility] 06-14-2020 SARS-CoV-2 (COVID-19 ) mRNA-1273 vaccine Garett Rommel [facility] 02-27-2020 influenza virus vaccine, unspecified formulation Garett Rommel [facility] 06-14-2019 zoster vaccine recombinant Garett Rommel [facility] 01-24-2019 influenza virus vaccine, unspecified formulation Garett Rommel [facility] 02-19-2018 influenza virus vaccine, unspecified formulation Garett Rommel [facility] 01-27-2018 influenza virus vaccine, unspecified formulation Janette Carcamo [facility] 01-06-2017 influenza virus vaccine, unspecified formulation Garett Tillman [facility] 05-14-2016 influenza virus vaccine, unspecified formulation Janette Carcamo [facility] Payers Date Payer Category Payer Self-pay [id number] 2022 Private Health Insurance [id number] 2020 Medicare [id number] 1959 Medicare [id number] 2.1 [id number] 1959 Private Health Insurance [id number] 2.16.840.1.706976.19 1955 Unknown [id number] 2.16.84 0.1.008095.3.579.2.593 1955 Unknown [id number] 2.16.84 0.1.157260.3.579.2.593 1955 Unknown [id number] 2.16.84 0.1.638653.3.579.2.593 1955 Unknown [id number] 2.16.84 0.1.981773.3.579.2.593 1955 Unknown [id number] 2.16.84 0.1.912632.3.579.2.593 1955 Unknown [id number] 2.16.84 0.1.436421.3.579.2.593 1955 Unknown [id number] 2.16.84 0.1.245634.3.579.2.593 1955 Unknown [id number] 2.16.8 40.1.866770.3.579.2.173 1955 Unknown [id number] 2.16.8 40.1.885626.3.579.2.1259 1955 Unknown [id number] 2.16.84 0.1.071636.3.579.2.1259 1955 Unknown [id number] 2.16.84 0.1.755152.3.579.2.1259 1955 Unknown [id number] 2.16.84 0.1.028009.3.579.2.1259 1955 Unknown [id number] 2.16.84 0.1.424085.3.579.2.1259 1955 Unknown [id number] 2.16.84 0.1.572282.3.579.2.1259 1955 Unknown [id number] 2.16.84 0.1.911406.3.579.2.1259 1955 Unknown [id number] 2.16.84 0.1.012879.3.579.2.1259 1955 Unknown [id number] 2.16.84 0.1.937701.3.579.2.1259 1955 Unknown [id number] 2.16.84 0.1.421112.3.579.2.1259 1955 Unknown [id number] 2.16.84 0.1.830557.3.579.2.1259 1955 Unknown [id number] 2.16.84 0.1.330049.3.579.2.1259 1955 Unknown [id number] 2.16.84 0.1.700490.3.579.2.1259 1955 Unknown [id number] 2.16. 840.1.864084.3.579.2.175 1955 Unknown [id number] 2.16.8 40.1.126926.3.579.2.727 1955 Unknown [id number] 2.16.8 40.1.563525.3.579.2.727 1955 Unknown [id number] 2.16.8 40.1.591676.3.579.2.727 1955 Unknown [id number] 2.16.8 40.1.294550.3.579.2.727 1955 Unknown [id number] 2.16.8 40.1.635856.3.579.2.727 1955 Unknown [id number] 2.16.8 40.1.845167.3.579.2.727 1955 Unknown [id number] 2.16.8 40.1.561949.3.579.2.727 Private Health Insurance [id number] Private Health Insurance [id number] Unknown [id number] Unknown [id number] 2.16.8 40.1.217060.3.579.2.531 Unknown [id number] 2.16.8 40.1.535397.3.579.2.531 Social History Date Type Detail [facility] Start: 1955 Sex Assigned At Female [facility] Start: 02-01-2024 End: 10-25-2024 Sex Assigned At [facility] Tobacco smoking status No Smokin g Status Entered [facility] Start: 10-06-2022 End: 12-01-2022 Tobacco smoking status Never smoked tobacco (finding) [facility] [place] Comment on above: denies use Tobacco [facility] Comment on above: denies use Start: 10-06-2022 End: 10-02-2023 Tobacco use and exposure Smokeless tobacco non-user [facility] Start: 02-01-2024 End: 10-25-2024 Alcoholic beverage intake Lifetime non-drinker (finding) [facility] Start: 02-01-2024 End: 10-25-2024 History of Social function [facility] Start: 1955 Sex assigned at Not on file B on [facility] Start: 03-01-2024 Sex Patient sex un known (finding) [facility] Start: 10-04-2022 Alcohol Comment Caffeine: none [facility] Start: 10-05-2022 Gender identity Identifies as female gender (finding) [facility] Start: 10-05-2022 Sexual orientation Heterosexual (fin ding) [facility] Start: 09-11-2024 End: 09-28-2024 Sex Female (finding) [facility] Clinical Notes 10-18-2021 to 12-12-2024 Ayan You, SPEECH LANGUAGE PATHOLOGIST ASSISTANT-BACK END ENGINEER - 10/25/2024 2:10 PM EDT Note Date & Type Note Facility 12-12-2024 Note Patient Education Emergency Medicine Heart Attack A heart attack occurs when blood and oxygen supply to the heart is cut off. A heart attack can cause damage to the heart that cannot be fixed. A heart attack is also called a myocardial infarction, or HI. If you think you are having a heart attack, do not wait to see if the symptoms will go away. Get medical help right away. What are the causes? This condition may be caused by: ??? A fatty substance (plaque) in the blood vessels (arteries). This can block the flow of blood to the heart. ??? A blood clot in the blood vessels that go to the heart. The blood clot blocks blood flow. ??? An abnormal heartbeat. ??? Some diseases, such as problems in red blood cells (anemia)orproblems in breathing (respiratory failure). ??? Tightening (spasm) of a blood vessel that cuts off blood to the heart. ??? A tear in a blood vessel of the heart. Other causes may include: ??? Using drugs such as cocaine or methamphetamine. ??? Low blood pressure. What increases the risk? Aging. The risk gets higher as you get older. ??? Having a personal or family history of chest pain, heart attack, stroke, or narrowing of the arteries in the legs, arms, head, or stomach (peripheral vascular disease). ??? Having taken chemotherapy or immune-suppressing medicines. ??? Being male. ??? Being overweight or obese. ??? Having any of these conditions: ? High blood pressure. ? High cholesterol. ? Diabetes. ??? Making lifestyle choices such as: ? Drinking too much alcohol. ? Not getting regular exercise. ? Smoking. What are the signs or symptoms? Chest pain. It may feel like: ? Crushing or squeezing. ? Tightness, pressure, fullness, or heaviness. ??? Pain in the arm, neck, jaw, back, or upper body. ??? Heartburn. ??? Upset stomach (indigestion). ??? Shortness of breath. ??? Feeling like you may vomit (nauseous). ??? Cold sweats. ??? Sudden light-headedness, dizziness, or passing out. ??? Feeling tired. How is this treated? A heart attack must be treated as soon as possible. Treatment may include: ??? Medicines to: ? Break up or dissolve blood clots. ? Thin your blood and help prevent blood clots. ? Treat blood pressure. ? Improve blood flow to the heart. ? Reduce pain. ? Reduce cholesterol. ??? Procedures to widen a blocked artery and keep it open. ??? Open heart surgery. ??? Making your heart strong again (cardiac rehabilitation) through exercise, education, and counseling. Follow these instructions at home: Medicines ??? Take ondm-ybt-ubmzmrf and prescription medicines only as told by your doctor. ??? Do not take these medicines unless your doctor says it is okay: ? NSAIDs, such as ibuprofen, naproxen, or celecoxib. ? Any vitamins or supplements. ? Hormone replacement therapy that has estrogen with or without progestin. ??? If you are taking blood thinners: ? Talk with your doctor before taking any medicines that have aspirin or NSAIDs, such as ibuprofen. ? Take medicines exactly as told. Take them at the same time each day. ? Avoid doing things that could hurt or bruise you. Take action to prevent falls. ? Wear an alert bracelet or carry a card that shows you are taking blood thinners. Lifestyle ??? Do not smoke or use any products that contain nicotine or tobacco. If you need help quitting, ask your doctor. ??? Avoid secondhand smoke. ??? Exercise regularly. Ask your doctor about a cardiac rehab program. ??? Eat heart-healthy foods. Your doctor will tell you what foods to eat. ??? Stay at a healthy weight. ??? Learn ways to lower your stress level. ??? Do not use illegal drugs. Alcohol use ??? Do not drink alcohol if: ? Your doctor tells you not to drink. ? You are , may be , or are planning to become . ??? If you drink alcohol: ? Limit how much you have to: ? 0?1 drink a day for women. ? 0?2 drinks a day for men. ? Know how much alcohol is in your drink. In the [place] one drink equals one 12 oz bottle of beer (355 mL), one 5 oz glass of wine (148 mL), or one 1? oz glass of hard liquor (44 mL). General instructions ??? Work with your doctor to treat other problems you may have, such as diabetes or high blood pressure. ??? Get screened for depression. Get treatment if needed. ??? Keep your vaccines up to date. Get the flu shot (influenza vaccine) every year. ??? Keep all follow-up visits. Contact a doctor if: ??? You feel very sad. ??? You have trouble doing your daily activities. ??? You get light-headed or dizzy. Get help right away if: ??? You have sudden, unexplained discomfort in your chest, arms, back, neck, jaw, or upper body. ??? You have shortness of breath. ??? You have sudden sweating or clammy skin. ??? You feel like you may vomit or you vomit. ??? You fe (more content not included)... [facility] 10-25-2024 History of Present illness Narrative Skin Check Location: Patient requests a full body skin examination Dermatologic history: history of Actinic Keratosis, family hx of melanoma Last visit: 1 year ago Established patient All pertinent medical history, medications, and allergies were reviewed. General Exam: alert, oriented to person, place, and time, normal affect, well appearing Accompanied by daughter Areas not examined despite medical recommendation: Scalp, Examined Right leg Examined Head, Face Examined Left leg Examined Neck Examined Right foot Examined Chest Examined Patient kept bra on Left foot Examined Back Examined Buttocks Examined Patient kept underwear on Abdomen Examined Digits,nails: Examined Right arm Examined Patient wearing nail norwegian, Denies dark streaks on toenails Left arm Examined Lymphatics: Not examined Hands Examined Skin Exam 1. MELANOCYTIC NEVUS OF LOWER EXTREMITY, UNSPECIFIED LATERALITY Right Thigh - Anterior Scattered benign appearing, regular brown to light brown melanocytic papules and macules with similar morphology Counseled regarding these benign growths. Rarely, a nevus can develop into malignant melanoma, so any changing nevi should be promptly re-evaluated. 2. MOISE ANGIOMA Generalized Scattered moise-red papule(s). The patient was informed that angiomas are benign growths on the the skin. No treatment is necessary. 3. LENTIGINES (3) Chest (Upper Torso, Anterior), Left Arm, Right Arm Scattered abdullahi macules in sun-exposed areas. The patient was informed that lentigines are benign pigmented lesions that occur on sun-exposed and sun-damaged skin. No treatment is necessary. Recommended regular use of broad spectrum sunscreen SPF 30 or higher. Recommended yearly skin exams. Recommended self monthly and melanoma educational handout provided to patient. 4. SEBORRHEIC KERATOSIS Generalized Stuck on verrucous, variably pigmented papules and plaques. Patient was counseled regarding these benign growths. Removal is normally not necessary, but they may be removed if they are symptomatic or for cosmetic reasons. Next Visit: 1 year skin exam documented in this encounter [facility] 09-11-2024 Evaluation note Diagnosis Onset Date Resolution UTI (urinary tract infection) acute September 11, 2024 9 :14am [facility] Work Phone: 1(931) 754-644905-25-2025 Evaluation note* Diagnosis Onset Date Resolution Status Admit Date UTI (urinary tract infection) acute September 11, 2024 9:14am Asthma acute September 28 11:05am GERD (gastroesophageal reflu x disease) acute September 28, 2024 11:05am Reactive airway disease with wheezing acute September 28, 2024 11:05am [place] Work Phone: 1(172) 805-969901-30-2025 History of Present illness Narrative* Gosia Zaman DO - 05/19/2024 2:15 PM EST Images from the original note were not included. Gosia Zaman D.O. Obstetrics and Gynecology Patient: Kimberley Denise : 1955 (68 y.o.) Yearly Wellness Exam Date: 05/19/2024 Reason for Visit - Chief Complaint Patient presents with Gynecologic Exam Pt c/o urinary frequency, would like urine dipped. Urine collected. 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 Last time she was in that office was 01/2024. Denies breast concerns. Pt is up to date with mammogram. Visit Vitals BP 128/82 Wt 206 lb BMI 33.25 kg/m Smoking Status Never BSA 2.09 m Allergies Allergen Reactions Nitrofurantoin Hives Other Reaction(s): Burning pain, Unknown Reaction History of Present Illness, Associated Treatments and Results - OB History Para Term AB Living 3 3 3 0 0 3 SAB IAB Ectopic Multiple Live Births 0 0 0 0 3 # Outcome Date GA Lbr Jermaine/2nd Weight Sex Type Anes PTL Lv 3 Term 2 Term 1 Term Obstetric Comments Pap smear 01/22/23 wnl, Mammogram 02/29/24 wnl @ [facility] Dexa ordered by PCP. Review of Systems - General: Chills denies. Allergy/Immunology: Rash Denies. ENT: Denies Difficulty swallowing. Endocrine: Denies Cold intolerance denies. Heat intolerance denied. Respiratory: Denies Chest pain denies. Shortness of breath denies. Breast: Denies Bloody nipple discharge denies. Breast lump denies. Cardiovascular: Denies Chest pain. Gastrointestinal: Abdominal pain denies. Blood in stool denies. Hematology: Easy bruising denies. Prolonged bleeding denies. Women Only: Breast lump denies. Vaginal bleeding between periods is denied. Vaginal discharge/itching denied. Genitourinary: Blood in urine denies. Painful urination denies. Incontinence denies. Skin: Hair changes. Neurologic: Seizures denied. Stroke denies. Psychiatric: Anxiety denies. Depressed mood denies. Medication Documentation Review Audit Reviewed by Shannen Frias MA (Assembler Type Bar [employer] Segment) on 05/19/24 at 1425 Medication Order Taking? Sig Documenting Provider Last Dose Status Discontinued 05/19/24 1425 cetirizine (ZyrTEC) 5 MG tablet [id number] No TAKE 1 TABLET BY MOUTH EVERY DAY FOR 30 DAYS HistoricalProviderMD Taking Active losartan-hydroCHLOROthiazide (Hyzaar) 50-12.5 MG tablet [id number] No Take 1 tablet by mouth in the morning. Historical ProviderMD Taking Active Discontinued 05/19/24 1424 Discontinued 05/19/24 1424 montelukast (Singulair) 10 MG tablet [id number] No Take 10 mg by mouth at bedtime. Historical ProviderMD Taking Active raloxifene (Evista) 60 MG tablet [id number] TAKE ONE TABLET BY MOUTH ONCE DAILY IN THE MORNING Gosia Zaman, DO Active Past Medical History: Diagnosis Date CA in situ x3- Past Surgical History: Procedure Laterality Date CATARACT EXTRACTION 2023 CHOLECYSTECTOMY 2008 COLONOSCOPY 08/[address] Oneil CRYOABLATION cryo:ca - in - situ VAGINAL DELIVERY weights between 9#10 to 8#7; x3 VASECTOMY Family History Problem Relation Name Age of Onset Other (Gallbladder cancer) Mother Breast cancer Sister Melanoma Sister Liver cancer Sister No Known Problems Daughter 3 Breast cancer Niece Stage III- chem + radiations Physical Exam - General appearance, mentation, extraocular movements, facial strength and movement, hearing, upper and lower extremity strength and tone, sensation to gross testing, coordination, and gait are normalor at baseline unless noted below. General Examination: GENERAL APPEARANCE: alert oriented well developed, well nourished. HEAD: normocephalic atraumatic. EYES: sclera anicteric. EARS: no obvious hearing deficit. SKIN: warm and dry. HEART: regular rate and rhythm. LUNGS: clear to auscultation bilaterally. CHEST: axillary nodes grossly normal. BREASTS: no masses palpable bilaterally, normal nipples bilaterally. ABDOMEN: soft, nontender, nondistended, no masses palpable. BACK: no costovertebral angle tenderness, no obvious scoliosis/kyphosis. FEMALE GENITOURINARY: cystocele grade 2-3, atrophic vaginal mucosa, cervix absent of lesions, nontender, uterus AV, mobile, uterine prolapse grade 1-2, ovaries nonpalpable and nontender. EXTREMITIES: no edema. NEUROLOGIC: alert and oriented. PSYCH: cooperative with exam. Diagnoses and all orders for this visit: Vaginal atrophy Encounter for screening mammogram for breast cancer - Bilateral screening mammogram with tomosynthesis; Future Urinary frequency - POCT urinalysis dipstick manually resulted Cystocele, midline Uterine prolapse Pelvic and breast exam completed. Findings of today's exam discussed with the patient. Continue MSBE. Ca/Vit D recommendations reviewed with the patient. The patient is to contact the office with anychanges to her gynecological condition. The patient is to return in 1 year or as needed ICD-10-CM 1. Vaginal atrophy N95.2 2. Encounter for screening mammogram for breast cancer Z12.31 Bilateral screening mammogram with tomosynthesis 3. Urinary frequency R35.0 POCT urinalysis dipstick manually resulted 4. Cystocele, midline N81.11 5. Uterine prolapse N81.4 documented in this encounterSaint [id number] History of Present illness Narrative* Jim Goldberg DPM - 01/14/2024 3:40 PM EDT Patient: Kimberley Denise : 1955 PCP: Janette Carcamo MD SUBJECTIVE This is a 68 y.o. female that presents today 8 weeks s/p left ORIF hallux fx Pt denies n/f/v/c and has minimal pain to post op site. Pt states that they have been keeping dressing dry and intact and have been nonweightbearing to post op foot Allergies: Allergies Allergen Reactions Nitrofurantoin Hives Other Reaction(s): Burning pain, Unknown Reaction Past Medical History: Past Medical History: Diagnosis Date CA in situ x3- Medications: Current Outpatient Medications: bisoprolol-hydroCHLOROthiazide (Ziac) 10-6.25 MG tablet, Take 1 tablet by mouth in the morning., Disp: , Rfl: cetirizine (ZyrTEC) 5 MG tablet, TAKE 1 TABLET BY MOUTH EVERY DAY FOR 30 DAYS, Disp: , Rfl: losartan-hydroCHLOROthiazide (Hyzaar) 50-12.5 MG tablet, Take 1 tablet by mouth in the morning., Disp: , Rfl: methylPREDNISolone (Medrol Dospak) 4 MG tablets, Follow schedule on MEDROL PACK package instructions to be used as directed, Disp: 21 tablet, Rfl: 0 methylPREDNISolone (Medrol Dospak) 4 MG tablets, Follow schedule on MEDROL PACK package instructions to be used as directed, Disp: 21 tablet, Rfl: 0 montelukast (Singulair) 10 MG tablet, Take 10 mg by mouth at bedtime., Disp: , Rfl: raloxifene (Evista) 60 MG tablet, Take 1 tablet (60 mg) by mouth in the morning., Disp: 90 tablet, Rfl: 3 ROS: General: denies fever, chills, fatigue, malaise GI: denies abdominal pain or ulcerations with anti-inflammatory medication OBJECTIVE LE EXAM: Derm: Skin intact to left foot with negative erythema, negative drainage, minimal edema with negative clinical signs of infection. Two K-wires intact to the left great toe Vascular: Palpable pedal pulses to left foot Neuro: Gross sensation intact to left foot. Musculoskeletal: Negative pain on palpation toleft calf. Ortho: Ankle range of motion less than 10 degrees of dorsiflexion at left ankle joint. Verbal order today for x-rays be taken by staff. AP/Oblique/Lateral 3 view radiographs today of the left foot demonstrated the following: Crossing K-wires noted to the distal phalanx of the left hallux with anatomical correction and no apparent fracture line and most likely healing to healed fracture site noted. ASSESSMENT 8 weeks s/p ORIF left hallux fx. With K-wires 1. Closed displaced fracture of distal phalanx of left great toe, initial encounter PLAN Reviewed x-rays today with patient Patient to continue with oral anti - inflammatories as needed for pain and recommended OTC medications such as tylenol or Ibuprofen Removal K-wires today under sterile conditions Patient to gradually progress into shoe gear of the next week and contact Podiatry if any issues Jim Goldberg DPM documented in this encounterSaint [facility]–[id number] History of Present illness Narrative* Jim Goldberg DPM - 12/31/2023 1:30 PM EDT Patient: Kimberley Denise : 1955 PCP: Janette Carcamo MD SUBJECTIVE This is a 68 y.o. female that presents today 6 weeks s/p left ORIF hallux fx Pt denies n/f/v/c and has minimal pain to post op site. Pt states that they have been keeping dressing dry and intact and have been nonweightbearing to post op foot Patient also presents today for follow up of right EDL tendinitis and has taking a steroid pack andstates positive relief to her foot Allergies: Allergies Allergen Reactions Nitrofurantoin Hives Other Reaction(s): Burning pain, Unknown Reaction Past Medical History: Past Medical History: Diagnosis Date CA in situ x3- Medications: Current Outpatient Medications: bisoprolol-hydroCHLOROthiazide (Ziac) 10-6.25 MG tablet, Take 1 tablet by mouth in the morning., Disp: , Rfl: cetirizine (ZyrTEC) 5 MG tablet, TAKE 1 TABLET BY MOUTH EVERY DAY FOR 30 DAYS, Disp: , Rfl: losartan-hydroCHLOROthiazide (Hyzaar) 50-12.5 MG tablet, Take 1 tablet by mouth in the morning., Disp: , Rfl: methylPREDNISolone (Medrol Dospak) 4 MG tablets, Follow schedule on MEDROL PACK package instructions to be used as directed, Disp: 21 tablet, Rfl: 0 methylPREDNISolone (Medrol Dospak) 4 MG tablets, Follow schedule on MEDROL PACK package instructions to be used as directed, Disp: 21 tablet, Rfl: 0 montelukast (Singulair) 10 MG tablet, Take 10 mg by mouth at bedtime., Disp: , Rfl: raloxifene (Evista) 60 MG tablet, Take 1 tablet (60 mg) by mouth in the morning., Disp: 90 tablet, Rfl: 3 ROS: General: denies fever, chills, fatigue, malaise GI: denies abdominal pain or ulcerations with anti-inflammatory medication OBJECTIVE LE EXAM: Derm: Skin intact to left foot with negative erythema, negative drainage, minimal edema with negative clinical signs of infection. Two K-wires intact to the left great toe Vascular: Palpable pedal pulses to left foot Neuro: Gross sensation intact to left foot. Musculoskeletal: Negative pain on palpation toleft calf. Ortho: Ankle range of motion less than 10 degrees of dorsiflexion at left ankle joint. Negativepain palpation to right EDL tendon complex Verbal order today for x-rays be taken by staff. AP/Oblique/Lateral 3 view radiographs today of the left foot demonstrated the following: Crossing K-wires noted to the distal phalanx of the left hallux with anatomical correction and still somewhat apparent fracture line and most likely healing fracture site noted. ASSESSMENT 6 weeks s/p ORIF left hallux fx. With K-wires 1. Capsulitis of metatarsophalangeal (MTP) joint of right foot 2. Closed displaced fracture of distal phalanx of left great toe, initial encounter PLAN Patient to keep dry sterile dressing intact and keep dressing dry with non weightbearing. Patient may take anti-inflammatories as needed for pain. May continue with ice to foot as needed p.r.n. Patient to continue with oral anti - inflammatories as needed for pain and recommended OTC medications such as tylenol or Ibuprofen Reviewed x-rays today with patient patient remain in boot for the next 2 weeks and will probably remove K-wires at the 8 week abbey Jim Goldberg DPM documented in this encounterSaint Luke[facility] Hospital–[id number] Telephone encounter Note* Telephone Encounter - Shannen Frias MA - 12/25/2023 11:44 AM EDT Called pt to see where she would like mammogram order sent to. Pt has had it done in the past at [facility], pt would like to switch to [facility]. Mammogram order sent to [facility]. [facility]–[id number] Miscellaneous Notes* Telephone Encounter - Shannen Frias MA - 12/25/2023 11:44 AM EDT Called pt to see where she would like mammogram order sent to. Pt has had it done in the past at [facility], pt would like to switch to [facility]. Mammogram order sent to [facility]. * Telephone Encounter - Tonie Paz - 12/25/2023 11:22 AM EDT Patient had to reschedule due to eye surgery. I rescheduled her for the end of April. She is wondering if we can send a mammogram order still since she needs that done in February. documented in this encounterSaint Luke's North Hospital–Sm[id number] Telephone encounter Note* Telephone Encounter - Tonie Castrodestiny - 12/25/2023 11:22 AM EDT Patient had to reschedule due to eye surgery. I rescheduled her for the end of April. She is wondering if we can send a mammogram order still since she needs that done in February. [facility]–Sm[id number] NoteNurse Consultation Note Reason for Visit Here for lab draw Assessment/Plan Adult general medical exam (Z00.00: Encounter for general adult medical examination without abnormal findings) Medications Albuterol (Eqv-ProAir HFA) 90 mcg/inh inhalation aerosol, 2 puff(s), Inhalation, q4hr Ellura, 1 cap, Daily Evista 60 mg Tab, 60 mg= 1 tab(s), Oral, Daily hydrochlorothiazide-losartan 12.5 mg-100 mg oral tablet, 1 tab(s), Oral, Daily, 4 refills methenamine hippurate 1 g oral tablet, 1 gm= 1 tab(s), Oral, Daily montelukast 10 mg Tab, 10 mg= 1 tab(s), Oral, qPM, 3 refills Multivitamins and Minerals, See Instructions, Oral, Daily Proctofoam HC rectal foam, 1 deny, Rectal, QID Protonix, 40 mg, Oral, Daily Allergies Macrobid (Burning pain, Hives) Immunizations Vaccine Date Status Comments zoster vaccine, inactivated 03/10/2023 Recorded influenza virus vaccine, inactivated 03/10/2023 Recorded SARS-CoV-2 (COVID-19) [id number] 04/02/2022 Recorded 2022-09-02: TPV65 pneumococcal 20-valent conjugate vaccine 02/15/2022 Recorded influenza virus vaccine, inactivated 02/15/2022 Recorded SARS-CoV-2 (COVID-19) mRNA-1273 vaccine 02/20/2021 Recorded 2022-09-02: TPV65 SARS-CoV-2 (COVID-19) mRNA-1273 vaccine 07/11/2020 Recorded SARS-CoV-2 (COVID-19) mRNA-1273 vaccine 06/14/2020 Recorded influenza virus vaccine, inactivated 02/27/2020 Recorded zoster vaccine, inactivated 06/14/2019 Recorded influenza virus vaccine, inactivated 01/24/2019 Recorded influenza virus vaccine, inactivated 02/19/2018 Recorded influenza virus vaccine, inactivated 01/27/2018 Recorded influenza virus vaccine, inactivated 01/06/2017 Recorded influenza virus vaccine, inactivated 05/14/2016 [facility] History of Present illness Narrative* Jim Goldberg, DPM - 12/09/2023 2:40 PM EDT Patient: Kimberley Denise : 1955 PCP: Janette Carcamo MD SUBJECTIVE This is a 68 y.o. female that presents today 21 days s/p left ORIF hallux fx Pt denies n/f/v/c and has minimal pain to post op site. Pt states that they have been keeping dressing dry and intact and have been nonweightbearing to post op foot Patient has complaints of pain to the dorsum of her right foot and has history of tendinitis and EDL tendinitis in the past and states it is starting to become painful and rates it up to a 5/10 and denies treatment Allergies: Allergies Allergen Reactions Nitrofurantoin Hives Other Reaction(s): Burning pain, Unknown Reaction Past Medical History: Past Medical History: Diagnosis Date CA in situ x3- Medications: Current Outpatient Medications: bisoprolol-hydroCHLOROthiazide (Ziac) 10-6.25 MG tablet, Take 1 tablet by mouth in the morning., Disp: , Rfl: cetirizine (ZyrTEC) 5 MG tablet, TAKE 1 TABLET BY MOUTH EVERY DAY FOR 30 DAYS, Disp: , Rfl: losartan-hydroCHLOROthiazide (Hyzaar) 50-12.5 MG tablet, Take 1 tablet by mouth in the morning., Disp: , Rfl: methylPREDNISolone (Medrol Dospak) 4 MG tablets, Follow schedule on MEDROL PACK package instructions to be used as directed, Disp: 21 tablet, Rfl: 0 methylPREDNISolone (Medrol Dospak) 4 MG tablets, Follow schedule on MEDROL PACK package instructions to be used as directed, Disp: 21 tablet, Rfl: 0 montelukast (Singulair) 10 MG tablet, Take 10 mg by mouth at bedtime., Disp: , Rfl: raloxifene (Evista) 60 MG tablet, Take 1 tablet (60 mg) by mouth in the morning., Disp: 90 tablet, Rfl: 3 ROS: General: denies fever, chills, fatigue, malaise OBJECTIVE LE EXAM: Derm: Sutures intact to left foot with negative erythema, negative drainage, minimal edema with negative clinical signs of infection. Two K-wires intact to the left great toe Vascular: Palpable pedal pulses to left foot Neuro: Gross sensation intact to left foot. Musculoskeletal: Negative pain on palpation toleft calf. Ortho: Ankle range of motion less than 10 degrees of dorsiflexion at left ankle joint. Positive pain palpation to right EDL tendon complex Verbal order today for x-rays be taken by staff. AP/Oblique/Lateral 3 view radiographs today of the left foot demonstrated the following: Crossing K-wires noted to the distal phalanx of the left hallux with anatomical correction and healing fracture site noted ASSESSMENT 21 days s/p ORIF left hallux fx. With K-wires 1. Closed displaced fracture of distal phalanx of left great toe, initial encounter 2. Capsulitis of metatarsophalangeal (MTP) joint of right foot PLAN Patient to keep dry sterile dressing intact and keep dressing dry with non weightbearing. Patient may take anti-inflammatories as needed for pain. May continue with ice to foot as needed p.r.n. Patient be placed on Medrol pack for tendinitis unrelated to previous condition Jim Goldberg DPM documented in this encounterSaint Luke's North Hospital–Sm[id number] Evaluation note* Encounter Date Diagnosis Assessment Notes Treatment Notes Treatment Clinical Notes Apr, GERD (gastroesophageal reflux disease) (ICD-10 - K21.9) The patient [...] 2024. Her last colonoscopy was performed at [facility] with Dr. Greenberg. Repeat colonoscopy in one year. [facility] Other 01-08-2024 Evaluation note* Encounter Date Diagnosis Assessment Notes Treatment Notes Treatment Clinical Notes Apr, GERD (gastroesophageal reflux disease) (ICD-10 - K21.9) [facility] Other 12-29-2023 Evaluation note* Encounter Date Diagnosis [...] plan. Mar, Other Asthma material was printed. [facility] Other 12-13-2023 Evaluation note* Encounter Date Diagnosis Assessment Notes Treatment Notes Treatment Clinical Notes Mar, Asthma (ICD-10 - J45.909) Notify office is you develop wheezing, cough, shortness of breath..will then order maintenance BREO or Symicort. Mar, Reactive airway disease with wheezing (ICD-10 - J45.909) Control seasonal allergy symptoms Mar, GERD (gastroesophageal reflux disease) (ICD-10 - K21.9) [facility] Other 11-01-2023 Evaluation note* Encounter Date Diagnosis Assessment Notes Treatment Notes Treatment Clinical Notes Feb, Dysuria (ICD-10 - R30.0) Feb, Cystitis (ICD-10 - N30.90) Drink plenty fluids, get plenty of rest. Take the Cipro as prescribed until gone. Follow-up with your urologist for reevaluation in the next week or so. Take Tylenol or Motrin as needed for aches pains or fevers [facility] Other 10-25-2023 Evaluation note* Encounter Date Diagnosis Assessment Notes Treatment Notes Treatment Clinical Notes Jan, Dysuria (ICD-10 - R30.0) Jan, Acute cystitis with hematuria (ICD-10 - N30.01) Drink plenty fluids, get plenty of rest. Take the Macrobid as prescribed until gone. Continue take the Azo for your symptoms. Follow-up with your family physician if no improvement in 2 to 3 days. [facility] Other 10-16-2023 Evaluation note* Encounter Date Diagnosis Assessment Notes Treatment Notes Treatment Clinical Notes Jan, GERD (gastroesophageal reflux disease) (ICD-10 - K21.9) [facility] Other 07-15-2023 Evaluation note* Encounter Date Diagnosis [...] Pt understood and agreed to treatment plan. [facility] Other 06-18-2023 Evaluation note* Encounter Date Diagnosis [...] worsening. Patient verbalized understanding of treatment plan. [facility] Other 11-30-2022 Evaluation note* Encounter Date Diagnosis Assessment Notes Treatment Notes Treatment Clinical Notes Feb, Asthma (ICD-10 - J45.909) Important to keep allergy and GERD symptoms under control to help prevent airway irritation. Feb, Reactive airway disease with wheezing (ICD-10 - J45.909) Call office if you develop cough/wheezing before next appointment. Will then begin ICS/LABA such as BREO or Symbicort. [facility] Other 10-09-2022 Evaluation note* Encounter Date Diagnosis Assessment Notes Treatment Notes Treatment Clinical Notes Jan, Moderate persistent asthma with exacerbation (ICD-10 - J45.41) recommend patient follow up with PCP since she is using rescue inhaler in evening and this is seconda flare up. She is interested in discussing seeing a specialist due to her symptoms. [facility] Other 07-01-2022 History general Narrative - Reported* Type Description Date Medical History HTN Medical History Arthritis Medical History ASTHMA OCTOBER 2021 Surgical History Lap Britta Hospitalization History See past surgical hx [facility] Other 07-01-2022 History general Narrative - Reported* Type Description Date Medical History HTN Medical History Arthritis Medical History ASTHMA OCTOBER 2021 Medical History Esophageal reflux Medical History schatzki ring Surgical History Lap Britta Surgical History EGD with dilitation Surgical History Colonoscopy Surgical History Colposcopy Hospitalization History See past surgical hx [employer] [facility] [employer] Other 07-01-2022 History general Narrative - Reported* Type Description Date Medical History HTN Medical History Arthritis Medical History ASTHMA OCTOBER 2021 Medical History Esophageal reflux Medical History schatzki ring Medical History reactive airway disease Surgical History Lap Britta Surgical History EGD with dilitation Surgical History Colonoscopy Surgical History Colposcopy Hospitalization History See past surgical hx Hospitalization History [facility] wheezing 09/2022 [facility] [employer] Other Evaluation + Plan note No data available for this section [facility] Future Appointments Appointment Date:03/02/2023 10:00:00 AM Scheduled Provider[facility] Open Appointment Date:12/03/2023 09:30:00 AM Scheduled Provider: Location:[facility] [place] Appointment Type: Medicare Wellness Subsequent [facility] Future Appointments Appointment Date:02/03/2024 10:20:00 AM Scheduled Provider:Garett Elizondo [facility] Type: Open Appointment Date:12/07/2024 09:30:00 AM Scheduled Provider: [facility] Type: Medicare Wellness Subsequent [facility] Evaluation noteNo assessment information available [facility] noteNo InformationNortEncompass Health [facility] [employer] Other Evaluation note* Diagnosis Onset Date Resolution Status Acute pain of right shoulder acute Contusion of right shoulder acute UTI (urinary tract infection) noneactive [facility] Work Phone: Evaluation note* Diagnosis Onset Date Resolution Status Acute pain of right shoulder acute Contusion of right shoulder acute UTI (urinary tract infection) noneactive Urinary tract infection acut e [facility] Work Phone: Evaluation note* Diagnosis Urinary tract infection with hematuria, site unspecified documented in this encounter [facility] Diagnosis Capsulitis of metatarsophalangeal (MTP) joint of right foot- Primary Closed displaced fracture of distal phalanx of left great toe, initial encounter documented in this encounter [facility] HealthcareEvaluation note* Diagnosis Closed displaced fracture of distal phalanx of left great toe, initial encounter- Primary Capsulitis of metatarsophalangeal (MTP) joint of right foot documented in this encounter [facility] HealthcareEvaluation note* Diagnosis Encounter for screening mammogram for breast cancer Capsulitis of metatarsophalangeal (MTP) joint of right foot- Primary Closed displaced fracture of distal phalanx of left great toe, initial encounter documented in this encounter [facility] HealthcareEvaluation note* Diagnosis Closed displaced fracture of distal phalanx of left great toe, initial encounter- Primary documented in this encounter [facility] HealthcareEvaluation note* Diagnosis Vaginal atrophy- Primary Postmenopausal atrophic vaginitis Encounter for screening mammogram for breast cancer Urinary frequency Cystocele, midline Uterine prolapse Uterine prolapse without mention of vaginal wall prolapse documented in this encounter [facility] HealthcareEvaluation note* Diagnosis Onset Date Resolution Status Admit Date Dyspepsia acute September 11, 2024 9:14am [place] Work Phone: Evaluation note* Diagnosis Melanocytic nevus of lower extremity, unspecified laterality- Primary Moise angioma Lentigines Seborrheic keratosis documented in this encounter [facility] HealthcareHospital Discharge instructions No data available for this section [facility] note No data available for this section [facility] Advance Directives No Advanced Directives Records Found Advance Directive Response Recorded Date/ Time Advance Directives No December 8:08pm Advance Directive Response Recorded Date/ Time Advance Directives Yes September 29 10:30am Advance Directive Response Recorded Date/ Time Advance Directives Yes September 29 11:30am Summary Purpose Family History No Family History Records Found Relationship Condition Age at Onset Recorded Date/T laura father Family history of other condition Unknown Malignant neoplasm Unknown Unknown Not Specified Malignant neoplasm Unknown sister Malignant neoplasm Unknown Malignant neoplasm of breast Unknown Relationship Condition Age at Onset Recorded Date/T laura father Family history of other condition Unknown Malignant neoplasm Unknown Unknown mother Malignant neoplasm Unknown sister Malignant neoplasm Unknown Malignant neoplasm of breast Unknown Chief Complaint and Reason for Visit Chief Complaint Admit Date Poss uti May 25th, 2025 9:14a m Reason for Visit Admit Date UTI (urinary tract infection) September 11, 2024 9:14am Chief Complaint Dysuria Chief Complaint NEW RT SHOULDER PAIN NX M25.511 Dysuria Dysuria Reason for Visit Acute pain of right shoulder Contusion of right shoulder UTI (urinary tract infection) Chief Complaint NEW RT SHOULDER PAIN NX M25.511 Dysuria R30.0 Possible UTI Dysuria Reason for Visit Acute pain of right shoulder Contusion of right shoulder UTI (urinary tract infection) Urinary tract infection Chief Complaint Admit Date Screening February 29, 2024 9:52am Reason for Visit Admit Date Dyspepsia September 11, 2024 9:14a m Chief Complaint Admit Date Poss uti September 11, 2024 9:14a m R10.13 September 11, 2024 9:22a m H yr f/u Asthma September 28, 2024 11:0 5am Reason for Visit Admit Date UTI (urinary tract infection) September 11, 2024 9:14am Asthma September 28, 2024 11:0 5am GERD (gastroesophageal reflux disease) J une 2024 11:05am Reactive airway disease with wheezing Ju ne 2024 11:05am Additional Source Comments Goals (unrecognized section and [...] alternate section No data available for this sectionGoals may be documented in an alternate sectionGoals may be documented in an alternate sectionGoals may be documented in an alternate sectionGoals may be documented in an alternate section REASON FOR VISIT (unrecogniz ed section and content) Reason Comments Post-op 6wk post op lt FX Reason Comments Post-op 21 day post op LT FX Reason Comments Post-op 8wk s/p k wire remov al Reason Comments Gynecologic Exam Pt c/o urinary frequ ency, would like urine dipped. Urine collected. 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 Last time she was in that office was 01/2024. Denies breast concerns. Pt is up to date with mammogram. Reason Comments Skin Check Patient Care team informatio n (unrecognized section [...] Team Status: Active Member Role Status Dates Janette Carcamo MD Primary Care Provider Active Team Status: Inactive Member Role Status Dates PHYSICIAN NO FAMILY Primary Care Provider Active Start: June 25, 2023 End: June 25, 2023 Lawrence Gaytan MD Attending Provider Active Star t: June 25, 2023 End: June 25, 2023 Team Status: Inactive Member Role Status Dates MERT Le Attending Provider Active S tart: July 30, 2023 End: July 30, 2023 Janette Carcamo MD Primary Care Provider Active Start: July 30, 2023 End: July 30, 2023 Team Status: Inactive Member Role Status Dates Janette Carcamo MD Primary Care Provider Active Start: August 20, 2023 End: August 20, 2023 Kalie French APRN Attending Provider Active Start: August 20, 2023 End: August 20, 2023 Team Status: Inactive Member Role Status Dates Kalie French APRN Attending Provider Active Start: August 20, 2023 End: August 20, 2023 Substitute Crossing Guard Relationship Specialty Start Date End Date Janette Carcamo MD [address] [place] [address] PCP - General 10/02/23 Team Status: Inactive Member Role Status Dates Janette Carcamo MD Primary Care Provider Active Start: February 29, 2024 End: February 29, 2024 Gosia Zaman DO Attending Provider Active S tart: February 29, 2024 End: February 29, 2024 Substitute Crossing Guard Relationship Specialty Start Date End Date Janette Carcamo MD PCP - General Family Medicine 01/22/23 Substitute Crossing Guard Relationship Specialty Start Date End Date Janette Carcamo MD PCP - General Family Medicine 01/22/23 Substitute Crossing Guard Relationship Specialty Start Date End Date Janette Carcamo MD PCP - General Family Medicine 01/22/23 Substitute Crossing Guard Relationship Specialty Start Date End Date Janette Carcamo MD [address] [place], [place] [id number] PCP - General Family Medicine 01/22/23 Substitute Crossing Guard Relationship Specialty Start Date End Date Janette Carcamo MD [address] [place] [address] PCP - General Family Medicine 01/22/23 Substitute Crossing Guard Relationship Specialty Start Date End Date Janette Carcamo MD [address] [place] [address] PCP - General Family Medicine 01/22/23 Substitute Crossing Guard Relationship Specialty Start Date End Date Janette Carcamo MD [address] [place] [address] PCP - General Family Medicine 01/22/23 Team Status: Inactive Member Role Status Dates Janette Carcamo MD Primary Care Provider Active Start: September 11, 2024 End: September 11, 2024 ASUNCION George RN NEEDLE LEADER-C Attending Provider Active Start: September 11 End: September 11, 2024 Team Status: Inactive Member Role Status Dates Yaneli Lobo APRN NEEDLE LEADER-C Attending Provider Active Start: September 11, 2024 End: September 11, 2024 Team Status: Inactive Member Role Status Dates Yaneli Ghada [place] , AP RN NEEDLE LEADER-C Attending Provider Active Start: September 11 End: September 11, 2024 PHYSICIAN NO FAMILY Primary Care Provider Active Start: September 11, 2024 End: September 11, 2024 Team Status: Inactive Member Role Status Dates Marie Galvan APRN ACNP-BC Attending Provider Active Start: September 28, 2024 End: September 28, 2024 PHYSICIAN NO FAMILY Primary Care Provider Active Start: September 28, 2024 End: September 28, 2024 Substitute Crossing Guard Relationship Specialty Start Date End Date Janette Carcamo MD [address] [place] [id number] PCP - General Family Medicine 01/22/23 Substitute Crossing Guard Relationship Specialty Start Date End Date Janette Carcamo MD [address] [place] [address] PCP - General Family Medicine 01/22/23 INFORMATION SOURCE (unrecogn ized section and content) DATE CREATED AUTHOR 09/04/2022 [facility] DATE CREATED AUTHOR AUTHOR'S ORGANIZ ATION 12/25/2023 [facility] DATE CREATED AUTHOR AUTHOR'S ORGANIZ ATION 02/13/2024 [facility] DATE CREATED AUTHOR AUTHOR'S ORGANIZ ATION 09/16/2024 [facility] DATE CREATED AUTHOR AUTHOR'S ORGANIZ ATION 10/29/2024 [facility] DATE CREATED AUTHOR AUTHOR'S ORGANIZ ATION 11/10/2024 [facility] DATE CREATED AUTHOR AUTHOR'S ORGANIZ ATION 12/13/2024 [facility] FOR RECORDS PERTAINING TO PATIENTS WHO ARE [...] BE BASED ON THE PRIMARY CLINICAL RECORDS. [employer] [facility]. provides no warranty or guarantee of the accuracy or completeness of information in this document.
== END 2024-12-20 09:23 | disposition home or self-care (01) ==
LOC: RAD 09:26
PROVIDERS: Family Provider Optometrist; PCP Nurse Practitioner; Visit Provider Nurse Practitioner
DX: E28.39 Other primary ovarian failure (principal); M85.88 Other specified disorders of bone density and structure, other site
CPT/HCPCS: 77080